=== PATIENT | male | born 1985 | race American Indian/Alaskan Native ===

== ENCOUNTER 2016-03-22 23:40 | Emergency (ER) | payer MEDICAID ==
[2016-03-23 02:36] LABS: Basophils % (Auto) 1.1 % (0.0-1.8); Eosinophils % (Auto) 2.7 % (0.0-4.3); Hematocrit 38.4 % (35.5-45.6); Mean Corpuscular HGB Conc 34 % (32-34); Mean Corpuscular Hemoglobin 31 pg (28-32); Mean Corpuscular Volume 91 fl (84-94); Platelet Count 229 K/mm3 (140-440); Red Blood Count 4.21 M/mm3 (3.65-5.03); Red Cell Distribution Width 15.2 % (13.2-15.2); White Blood Count 7.3 K/mm3 (4.5-11.0)
[2016-03-23 02:49] LABS: Anion Gap 17 mmol/L; BUN/Creatinine Ratio 11.11; Blood Urea Nitrogen 10 mg/dL (9-20); Calcium 8.5 mg/dL (8.4-10.2); Carbon Dioxide 27 mmol/L (22-30); Chloride 99.1 mmol/L (98-107); Glucose 92 mg/dL (75-100); Potassium 3.8 mmol/L (3.6-5.0); Sodium 139 mmol/L (137-145)
--- NOTE | 2016-03-23 03:08 | Emergency Department Report ---
HPI - General Chief Complaint: Psych Time Seen by Provider: 03/23/16 02:36 - HPI HPI: The patient is a 30-year-old male who presents for evaluation of mental health. The patient reports 1 day of constant and severe thoughts of sadness and suicidal ideation. He states that he is concerned that he will harm himself, as he has thought of stabbing himself with a knife. He also reports auditory hallucinations. The patient denies fever, headache, unexplained weight loss or weight gain, heat or cold intolerance, skin, hair, or nail changes, neuro deficits, homicidal ideations, or visual hallucinations. ED Past Medical Hx - Past Medical History Previous Medical History?: Yes Hx Hypertension: Yes Hx Psychiatric Treatment: Yes (anxiety, schizophrenia, bipolar) - Surgical History Past Surgical History?: No - Social History Smoking Status: Current Every Day Smoker Substance Use Type: Alcohol, Marijuana - Medications Home Medications: Home Medications Medication Instructions Recorded Confirmed Last Taken Type Divalproex Dr [Depakote] 500 mg PO BID 12/05/13 12/07/14 12/07/14 History Benztropine [Cogentin] 1 mg PO QHS 05/05/14 12/07/14 12/07/14 History risperiDONE [RisperDAL] 5 mg PO QHS 12/07/14 12/07/14 12/07/14 History ED Review of Systems ROS: Stated complaint: MH EVAL Other details as noted in HPI Constitutional: denies: fever ENT: denies: throat or neck pain Respiratory: denies: cough, shortness of breath Cardiovascular: denies: chest pain Endocrine: denies unexplained weight loss or gain Gastrointestinal: denies: abdominal pain, nausea Genitourinary: denies: dysuria Musculoskeletal: denies: leg swelling Skin: denies: rash Neurological: denies: headache Hematological/Lymphatic: denies: easy bleeding or easy bruising Psych: reports sadness and SI Physical Exam - Physical Exam Vital Signs: Vital Signs 03/23/16 03/23/16 01:25 02:35 Temperature 98.0 F 98.5 F Pulse Rate 114 H 80 Respiratory 18 151 H Rate Blood Pressure 119/86 Blood Pressure 127/75 [Right] O2 Sat by Pulse 98 99 Oximetry Physical Exam: General: well-nourished, well-developed, no acute distress Head: Normocephalic, atraumatic Eyes: normal sclera ENT: Mucous membranes are pale and dry Neck: trachea midline, neck supple, No neck stiffness, no cervical adenopathy Respiratory: Breath sounds equal bilaterally, no wheezing, rales, or rhonchi Cardio: S1 and S2 present, no murmurs, rubs, gallops, capillary refill is delayed Abdomen: Normoactive bowel sounds, soft abdomen, no rigidity, no guarding or rebound tenderness Musc: No pitting edema Skin: No rash Neuro: no facial drooping, normal speech Psych: Normal affect ED Course Vital Signs 03/23/16 03/23/16 01:25 02:35 Temperature 98.0 F 98.5 F Pulse Rate 114 H 80 Respiratory 18 151 H Rate Blood Pressure 119/86 Blood Pressure 127/75 [Right] O2 Sat by Pulse 98 99 Oximetry ED Medical Decision Making - Lab Data Result diagrams: 03/23/16 02:20 03/23/16 02:20 - Medical Decision Making The patient was seen and examined by myself. The patient is placed on a monitor and storage bin tender and continuous pulse ox. On initial evaluation, the patient was found to be in no distress. Labs are obtained. Lab results are grossly unremarkable. The patient is medically clear. Mental health is consulted. Mental health evaluates the patient and agrees that the patient is at risk of harm to self. A 1013 is completed. The patient will be admitted to a psychiatric facility once bed placement is obtained. Critical care attestation.: If time is entered above; I have spent that time in minutes in the direct care of this critically ill patient, excluding procedure time. ED Disposition Clinical Impression: Suicidal ideations Disposition: DC/TX PSY HOSP/PSY UNIT Is pt being admited?: No Does the pt Need Aspirin: No Condition: Stable Referrals: PRIMARY CARE, [Primary Care Provider] - 3-5 Days Time of Disposition: 03:08
[2016-03-23 07:20] LABS: Urine Drugs of Abuse Note Disclamer
[2016-03-23 07:26] LABS: Bilirubin,Urine NEG (Negative); Blood,Urine NEG (Negative); Ketones,Urine NEG (Negative); Leukocyte Esterase,Urine NEG (Negative); Nitrite,Urine NEG (Negative); Protein,Urine <15 mg/dL mg/dL (Negative); Urobilinogen,Urine < 2.0 mg/dL (<2.0)
--- NOTE | 2016-03-23 15:28 | Event Note ---
Date: 03/23/16 Vital signs and nursing notes reviewed. Patient awaiting placement.
[2016-03-25 20:16] VITALS: BP 106/61
== END 2016-03-25 21:45 ==
LOC: EEVIPCON 23:40 → ED 23:40
DX: R45.851 Suicidal ideations (principal); R44.0 Auditory hallucinations; I10 Essential (primary) hypertension; F20.9 Schizophrenia, unspecified; F41.9 Anxiety disorder, unspecified; F12.10 Cannabis abuse, uncomplicated; F17.200 Nicotine dependence, unspecified, uncomplicated; F31.9 Bipolar disorder, unspecified
CPT/HCPCS: 36415; 80048; 80307; 81001; 85025; 99285; G0480; 80320

== ENCOUNTER 2016-04-20 07:28 | Emergency (ER) | payer MEDICAID ==
[2016-04-20 08:13] LABS: Basophils % (Auto) 0.6 % (0.0-1.8); Eosinophils % (Auto) 2.7 % (0.0-4.3); Hemoglobin 13.1 gm/dl (11.8-15.2); Mean Corpuscular HGB Conc 34 % (32-34); Mean Corpuscular Hemoglobin 31 pg (28-32); Mean Corpuscular Volume 93 fl (84-94); Platelet Count 233 K/mm3 (140-440); Red Blood Count 4.21 M/mm3 (3.65-5.03); Red Cell Distribution Width 15.6 % (13.2-15.2); White Blood Count 6.2 K/mm3 (4.5-11.0)
[2016-04-20 08:23] LABS: Urine Drugs of Abuse Note Disclamer
[2016-04-20 08:32] LABS: Anion Gap 16 mmol/L; Blood Urea Nitrogen 4 mg/dL (9-20); Calcium 8.6 mg/dL (8.4-10.2); Carbon Dioxide 27 mmol/L (22-30); Glucose 88 mg/dL (75-100); Potassium 3.7 mmol/L (3.6-5.0); Sodium 138 mmol/L (137-145)
[2016-04-20 08:41] LABS: Bilirubin,Urine NEG (Negative); Blood,Urine NEG (Negative); Ketones,Urine NEG (Negative); Leukocyte Esterase,Urine NEG (Negative); Mucus,Urine FEW /HPF; Nitrite,Urine NEG (Negative); Protein,Urine <15 mg/dL mg/dL (Negative); WBC,Urine < 1.0 /HPF (0.0-6.0)
--- NOTE | 2016-04-20 16:29 | Emergency Department Report ---
HPI - General Chief Complaint: Psych Time Seen by Provider: 04/20/16 09:06 - HPI HPI: Chief complaint: Suicidal thoughts and hearing voices HPI: Patient with a history of bipolar disorder and schizoaffective disorder presents today saying he is having suicidal thoughts and is hearing voices. Patient also complains of having some abdominal crampy pain with 4 episodes of diarrhea earlier that has since stopped. Patient states he has trouble with constipation because someone is blocking his bowels. Patient states that he did not take his medications yesterday as someone has been tampering with them. She would not elaborate further. Mode of arrival: private car Source: Patient Began: Patient unable to say how long he's been having these feelings Duration: Long-standing history of psychiatric illness Context: See above Quality: Currently pain-free Severity: 0 out of 10 Improved with: Nothing Worsened with: Nothing Associated signs and symptoms: See above ED Past Medical Hx - Past Medical History Hx Hypertension: Yes Hx Psychiatric Treatment: Yes (anxiety, schizophrenia, bipolar) - Surgical History Past Surgical History?: No - Social History Smoking Status: Current Every Day Smoker Substance Use Type: Alcohol - Medications Home Medications: Home Medications Medication Instructions Recorded Confirmed Last Taken Type Divalproex Dr [Depakote] 500 mg PO BID 12/05/13 03/23/16 12/07/14 History Benztropine [Cogentin] 1 mg PO QHS 05/05/14 03/23/16 12/07/14 History risperiDONE [RisperDAL] 5 mg PO QHS 12/07/14 03/23/16 12/07/14 History Haloperidol [Haldol] 5 mg PO HS 04/20/16 04/20/16 04/19/16 History ED Review of Systems ROS: Stated complaint: MH EVAL Other details as noted in HPI ROS Constitutional: No fever ENT: No uri symptoms Cardiovascular: No chest pain Respiratory: No sob or cough GI: No nausea vomiting : No dysuria frequency or urgency, Skin: No rash Neuro: No focal weakness or numbness Psych: He HPI Gustabo/lymph: No edema Physical Exam - Physical Exam Vital Signs: Vital Signs 04/20/16 04/20/16 07:33 08:22 Temperature 98.1 F Pulse Rate 95 H Respiratory 18 20 Rate Blood Pressure 117/75 O2 Sat by Pulse 99 98 Oximetry Physical Exam: GENERAL: The patient is well-developed well-nourished . HEENT: Normocephalic. Atraumatic. Extraocular motions are intact. Patient has moist mucous membranes. NECK: Supple. No meningitic signs are noted. There is no adenopathy noted. CHEST/LUNGS: Clear to auscultation. There is no respiratory distress noted. HEART/CARDIOVASCULAR: Regular. There is no tachycardia. There is no gallop rub or murmur. ABDOMEN: Abdomen is soft, nontender. Patient has normal bowel sounds. There is no abdominal distention. SKIN: There is no rash. There is no edema. There is no diaphoresis. NEURO: The patient is awake, alert, and oriented. Patient is slightly paranoid. The patient is cooperative. The patient has no focal neurologic deficits. The patient has normal speech. MUSCULOSKELETAL: There is no tenderness or deformity. There is no limitation range of motion. There is no evidence of acute injury. ED Course Vital Signs 04/20/16 04/20/16 07:33 08:22 Temperature 98.1 F Pulse Rate 95 H Respiratory 18 20 Rate Blood Pressure 117/75 O2 Sat by Pulse 99 98 Oximetry - Reevaluation(s) Reevaluation #1: 04/20/16 Patient evaluated by mental health crisis and 1013 was executed. ED Medical Decision Making - Lab Data Result diagrams: 04/20/16 07:58 04/20/16 07:58 Laboratory Tests 04/20/16 04/20/16 07:58 07:58 Valproic Acid 9.1 L Plasma/Serum Alcohol < 0.01 Urinalysis and urine drug screen are negative. Critical care attestation.: If time is entered above; I have spent that time in minutes in the direct care of this critically ill patient, excluding procedure time. ED Disposition Clinical Impression: Suicidal ideations Disposition: DC/TX PSY HOSP/PSY UNIT Is pt being admited?: No Does the pt Need Aspirin: No Condition: Stable Time of Disposition: 10:00
[2016-04-21 10:09] VITALS: BP 116/68
--- NOTE | 2016-04-21 17:19 | Consultation ---
History of Present Illness - Reason for Consult Consult date: 04/21/16 Reason for consult: evaluation for placement into emergency receiving facility - Chief Complaint Chief complaint: I thought they were messing with my medications - History of Present Psychiatric Illness This is a 30 year old domiciled male with PPH of Schizophrenia who presents due to either a persistent psychosis or a reemergence of psychosis over the past few days. Psychiatry was consulted to evaluate and to help facilitate placement of this patient. Upon interview, he corroborated the history noted in the remainder of the chart and that of the Mental Health assessors. Notably, that he was having thoughts of suicide and that he woke up not feeling well. He has been inconsistently adherent to his medications due to a paranoid belief that someone is tampering with the medication. Medications and Allergies Allergies Allergy/AdvReac Type Severity Reaction Status Date / Time quetiapine fumarate Allergy Unknown Verified 04/20/16 07:33 [From Seroquel] Home Medications Medication Instructions Recorded Confirmed Last Taken Type Divalproex Dr [Depakote] 500 mg PO BID 12/05/13 04/20/16 04/19/16 History Benztropine [Cogentin] 1 mg PO QHS 05/05/14 04/20/16 04/19/16 History risperiDONE [RisperDAL] 5 mg PO QHS 12/07/14 04/20/16 04/19/16 History Haloperidol [Haldol] 5 mg PO HS 04/20/16 04/20/16 04/19/16 History Mental Status Exam - Vital signs Last Vital Signs Temp 98.3 F 04/21/16 10:00 Pulse 70 04/21/16 10:00 Resp 18 04/21/16 10:00 BP 116/68 04/21/16 10:00 Pulse Ox 99 04/21/16 10:00 - Exam Orientation: person Affect: depressed, anxious Mood: fearful, anxious Thought content: obsessions, phobias, paranoia, somatic Thought Process: Disorganized Perceptions: auditory Speech: slow Concentration: distractible Motor activity: lethargic Level of consciousness: sedated Memory: Recent Impaired, Remote Impaired Sleep Symptoms: None Interaction: guarded Results Result Diagrams: 04/20/16 07:58 04/20/16 07:58 All other labs normal. Assessment and Plan Assessment and plan: This is a 30 year old domiciled male with schizophrenia who presents with worsening psychosis in the context of intermittent medication non-adherence associated to paranoia. We recommend transferring him to [facility], where he has been accepted by their emergency receiving psychiatric facility.
== END 2016-04-21 15:54 ==
LOC: ED 07:28 → EEVIPCON 07:28 → ED 04-21 15:54
DX: R45.851 Suicidal ideations (principal); I10 Essential (primary) hypertension; F31.9 Bipolar disorder, unspecified; F20.9 Schizophrenia, unspecified; F41.9 Anxiety disorder, unspecified; F17.200 Nicotine dependence, unspecified, uncomplicated
CPT/HCPCS: 36415; 80048; 80164; 80307; 81001; 85025; 99285; G0480; 80320

== ENCOUNTER 2016-06-09 23:48 | Emergency (ER) | payer MEDICAID ==
[2016-06-10 03:09] LABS: Anion Gap 20 mmol/L; BUN/Creatinine Ratio 6.66; Blood Urea Nitrogen 6 mg/dL (9-20); Calcium 9.5 mg/dL (8.4-10.2); Carbon Dioxide 25 mmol/L (22-30); Chloride 98.5 mmol/L (98-107); Glucose 78 mg/dL (75-100); Potassium 4.5 mmol/L (3.6-5.0); Sodium 139 mmol/L (137-145)
[2016-06-10 03:20] LABS: Basophils % (Auto) 0.6 % (0.0-1.8); Eosinophils % (Auto) 2.6 % (0.0-4.3); Hematocrit 41.1 % (35.5-45.6); Hemoglobin 14.3 gm/dl (11.8-15.2); Mean Corpuscular HGB Conc 35 % (32-34); Mean Corpuscular Hemoglobin 32 pg (28-32); Mean Corpuscular Volume 93 fl (84-94); Platelet Count 228 K/mm3 (140-440); Red Blood Count 4.43 M/mm3 (3.65-5.03); Red Cell Distribution Width 14.3 % (13.2-15.2); White Blood Count 7.8 K/mm3 (4.5-11.0)
[2016-06-10 03:32] LABS: Urine Drugs of Abuse Note Disclamer
[2016-06-10 03:51] LABS: Bilirubin,Urine NEG (Negative); Blood,Urine NEG (Negative); Ketones,Urine NEG (Negative); Leukocyte Esterase,Urine SM (Negative); Mucus,Urine FEW /HPF; Nitrite,Urine NEG (Negative); Protein,Urine <15 mg/dL mg/dL (Negative); Urobilinogen,Urine < 2.0 mg/dL (<2.0)
[2016-06-10] MEDS ORDERED: HABITROL TD ONE (03:53)
--- NOTE | 2016-06-10 03:53 | Emergency Department Report ---
ED Psych HPI - General Chief Complaint: Psych Stated Complaint: MH EVAL/RT FOOT PAIN Time Seen by Provider: 06/10/16 03:23 Source: patient Mode of arrival: Ambulatory - History of Present Illness Initial Comments: Danny is a pleasant young man who lives in a fci. He states he has difficulties in the fci of getting sleep due to all the activity going on. He states he is, constantly hearing voices in his head telling him to do all sorts of things as well. He finds a voices distracting and difficult to concentrate and sleep as well. He feels frequently that the voices are telling him to do harm to himself. He does not have any homicidal ideations. He does not have a specific suicidal plan but has had thoughts of suicide. Patient states he feels that he needs inpatient psychiatric therapy. He denies any drugs of abuse. He denies illicit. He states he is compliant with his medications. He does have a psychiatrist here in town when she follows up with routinely. He states his last appointment was 2 weeks ago. Patient reports feeling comfortable with this psychiatrist. He states in general he is comfortable with his fci but that he just feels he needs a break so that he can get better sleep and get his "head on straight." Patient also complains of tinea pedis times long time that is gone untreated. It is itchy. It sometimes causes his feet to burn Associated Psychiatric Symptoms: depression, suicidal ideation History of same: Yes Treatments Prior to Arrival: none - Related Data Home Medications Medication Instructions Recorded Confirmed Last Taken Divalproex Dr [Depakote] 500 mg PO BID 12/05/13 04/20/16 04/19/16 Benztropine [Cogentin] 1 mg PO QHS 05/05/14 04/20/16 04/19/16 risperiDONE [RisperDAL] 5 mg PO QHS 12/07/14 04/20/16 04/19/16 Haloperidol [Haldol] 5 mg PO HS 04/20/16 04/20/16 04/19/16 Allergies Allergy/AdvReac Type Severity Reaction Status Date / Time quetiapine fumarate Allergy Unknown Verified 04/20/16 07:33 [From Seroquel] ED Review of Systems ROS: Stated complaint: MH EVAL/RT FOOT PAIN Other details as noted in HPI Comment: All other systems reviewed and negative Constitutional: denies: chills, fever Eyes: denies: eye pain, eye discharge, vision change ENT: denies: ear pain, throat pain Respiratory: denies: cough, shortness of breath, wheezing Cardiovascular: denies: chest pain, palpitations Endocrine: no symptoms reported Gastrointestinal: denies: abdominal pain, nausea, diarrhea Genitourinary: denies: urgency, dysuria Musculoskeletal: denies: back pain, joint swelling, arthralgia Skin: other (skin lesions right foot.). denies: rash, lesions Neurological: denies: headache, weakness, paresthesias Psychiatric: anxiety, depression, suicidal thoughts Hematological/Lymphatic: denies: easy bleeding, easy bruising ED Past Medical Hx - Past Medical History Previous Medical History?: Yes Hx Hypertension: Yes Hx Psychiatric Treatment: Yes (anxiety, schizophrenia, bipolar) - Surgical History Past Surgical History?: Yes - Social History Smoking Status: Current Every Day Smoker Substance Use Type: Alcohol - Medications Home Medications: Home Medications Medication Instructions Recorded Confirmed Last Taken Type Divalproex Dr [Depakote] 500 mg PO BID 12/05/13 04/20/16 04/19/16 History Benztropine [Cogentin] 1 mg PO QHS 05/05/14 04/20/16 04/19/16 History risperiDONE [RisperDAL] 5 mg PO QHS 12/07/14 04/20/16 04/19/16 History Haloperidol [Haldol] 5 mg PO HS 04/20/16 04/20/16 04/19/16 History ED Physical Exam - General Limitations: No Limitations General appearance: alert, in no apparent distress - Head Head exam: Present: atraumatic, normocephalic - Eye Eye exam: Present: normal appearance, EOMI. Absent: scleral icterus - ENT ENT exam: Present: normal exam, normal orophraynx, mucous membranes moist - Neck Neck exam: Present: normal inspection. Absent: tenderness, meningismus, lymphadenopathy - Respiratory Respiratory exam: Present: normal lung sounds bilaterally. Absent: respiratory distress, wheezes, rales - Cardiovascular Cardiovascular Exam: Present: regular rate, normal rhythm. Absent: systolic murmur, diastolic murmur, rubs, gallop - GI/Abdominal GI/Abdominal exam: Present: soft, normal bowel sounds. Absent: tenderness, guarding - Rectal Rectal exam: Present: deferred - Extremities Exam Extremities exam: Present: other (right foot increases and on the ball of foot with chronic skin changes consistent with tinea pedis.). Absent: pedal edema, joint swelling, calf tenderness - Back Exam Back exam: Present: normal inspection, full ROM. Absent: tenderness, CVA tenderness (R), CVA tenderness (L) - Neurological Exam Neurological exam: Present: alert, oriented X3 - Psychiatric Psychiatric exam: Present: normal affect, normal mood, suicidal ideation - Skin Skin exam: Present: warm, dry, intact, normal color. Absent: rash ED Course Vital Signs 06/10/16 06/10/16 02:09 02:24 Temperature 98.1 F 98.1 F Pulse Rate 74 75 Respiratory 18 18 Rate Blood Pressure 118/81 Blood Pressure 118/61 [Right] O2 Sat by Pulse 100 100 Oximetry - Reevaluation(s) Reevaluation #1: 06/10/16 05:23 Patient very pleasant and calm here. He is speaking in normal rate and tone. He does endorse suicidal thoughts. He states that there is some more of a flight of ideas. He states he is voices that she talk to him. He reports the voices are sometimes helpful and sometimes mean. Again his main concern is in his opinion is that he is just not getting enough sleep to deal with his problems well. He strongly expresses a desire to be in inpatient psychiatry. To some degree I feel like he is borderline for needing inpatient care. He does legitimately endorse some suicidal thoughts spell. He states he has never acted out on the suicidal gesture in the past. He states he's always been compliant with his medications. These are reasons why I feel these low risk in general. Despite this for now I will have him on 1013 for further evaluation by crisis maintenance representative as well as psychiatry. Intake labs have been evaluated and are normal. Patient is medically clear from my standpoint. Of secondary note patient does demonstrate tinea pedis. This is gone untreated for several years it appears. I did encourage him to get this finally treated. It'll require about 8-12 weeks of continuous treatment with some type of antifungal medication. ED Medical Decision Making - Lab Data Result diagrams: 06/10/16 02:36 06/10/16 02:36 Critical care attestation.: If time is entered above; I have spent that time in minutes in the direct care of this critically ill patient, excluding procedure time. ED Disposition Clinical Impression: Suicidal ideations, Tinea pedis of right foot Depression Qualifiers: Depression Type: major depressive disorder Major depression recurrence: recurrent Active/Remission status: currently active Major depression episode severity: moderate Qualified Code(s): F33.1 - Major depressive disorder, recurrent, moderate Disposition: DC/TX PSY HOSP/PSY UNIT Is pt being admited?: No Does the pt Need Aspirin: No Condition: Stable Referrals: PRIMARY CARE, [Primary Care Provider] - 3-5 Days Time of Disposition: 05:25
--- NOTE | 2016-06-10 11:31 | Consultation ---
History of Present Illness - Reason for Consult Consult date: 06/10/16 Reason for consult: Psychiatry Follow-up Requesting physician: MARIANA LINDSAY - Chief Complaint Chief complaint: "I just need some help" - History of Present Psychiatric Illness 31 y.o. AA male admitted to [facility] for psychosis. Today patient is calm, cooperative with a linear thought process. Patient acknowledged calling the police to pick him up from the group, because he wasn't "feeling right." He told me that he is having issues at his current long-term and experiencing AVH' s intermittently. He could not tell me what the visual hallucination is currently, but states the voices tell him to do all sorts of "crazy" things. I asked did the voices tell him to harm himself or anyone else, he states "yes" to harming himself, "no" to harming anyone else. He could not tell me if he had a suicide plan. He stated that he was hospitalized for hearing voices with suicidal thoughts in the past. He denies having issues with a group of residents or a particular person at the long-term. He states that it's a lot of on going activity there and getting rest and sleep is a problem. He denies using recreational drugs, but drink seldom. He feels sad and hopeless and rate his depression 7/10, with 10 being the worst. He states that he is compliant with his medications. He denies HI's at this time. Medications and Allergies Allergies Allergy/AdvReac Type Severity Reaction Status Date / Time quetiapine fumarate Allergy Unknown Verified 04/20/16 07:33 [From Seroquel] Home Medications Medication Instructions Recorded Confirmed Last Taken Type Divalproex Dr [Depakote] 500 mg PO BID 12/05/13 06/10/16 06/08/16 History Benztropine [Cogentin] 1 mg PO QHS 05/05/14 06/10/16 06/08/16 History risperiDONE [RisperDAL] 5 mg PO QHS 12/07/14 06/10/16 06/08/16 History Haloperidol [Haldol] 5 mg PO HS 04/20/16 06/10/16 06/08/16 History Active Meds: Active Medications Benztropine Mesylate (Cogentin) 1 mg PO QHS ALDO Divalproex Sodium (Depakote Dr) 500 mg PO BID [facility] Last Admin: 06/10/16 09:56 Dose: 500 mg Haloperidol (Haldol) 5 mg PO HS ALDO Risperidone (Risperdal) 3 mg PO QHS ALDO Risperidone (Risperdal) 2 mg PO QHS ALDO Past psychiatric history - Past Medical History Past Medical History: No medical history Past Surgical History: No surgical history - past Psychiatric treatment and history Psych: Bipolar, Schizophrenia psychiatric treatment history: Per patient been to [facility]. Denies fam psy hx. - Social History Social history: other (Lives at a long-term, did not finish , ) Mental Status Exam - Vital signs Last Vital Signs Temp 97.8 F 06/10/16 07:40 Pulse 70 06/10/16 07:40 Resp 20 06/10/16 07:40 BP 101/66 06/10/16 07:40 Pulse Ox 99 06/10/16 07:40 - Exam Narrative exam: ROS (-) Suicidal Thoughts, (+) Depression Orientation: time, place, person Affect: flat Mood: congruent with affect Thought content: other (None) Thought Process: Intact Perceptions: none Speech: normal rate and pattern Concentration: other (Intact) Motor activity: other (Lying in bed) Level of consciousness: alert Memory: Intact Sleep Symptoms: None Interaction: cooperative, pleasant Results Result Diagrams: 06/10/16 02:36 06/10/16 02:36 Abnormal lab results 06/10/16 06/10/16 06/10/16 Range/Units 02:36 02:36 04:10 MCHC 35 H (32-34) % [place] % (Auto) 8.5 H (0.0-7.3) % BUN 6 L (9-20) mg/dL Valproic Acid 13.8 L (50-100) ug/mL All other labs normal. Assessment and Plan Assessment and plan: Impression: Psychosis NOS. 31 y.o. AA male admitted to [facility] for psychosis. Today patient is calm, cooperative with a linear thought process. Patient acknowledged calling the police to pick him up from the group, because he wasn' t "feeling right." He admit suicidal thoughts and AVH's intermittently. He stated that he is compliant with his medication, but have not taken his depakote regularly. VA level 13.8. DD: R/O Bipolar Recommendation/Plan: Continue 1013 with possible placement to inpatient psy services. Metabolic side effects discussed with patient reference antipsychotics.
[2016-06-10 14:47] VITALS: BP 108/66
[2016-06-10] MEDS ORDERED: RisperDAL PO SCH ×3 (22:00)
[2016-06-10] MEDS ORDERED: HALDOL PO SCH (22:00)
[2016-06-10] MEDS ORDERED: COGENTIN PO SCH (22:00)
== END 2016-06-10 14:56 ==
LOC: EEVIPCON 23:48 → ED 23:48
DX: R45.851 Suicidal ideations (principal); F33.1 Major depressive disorder, recurrent, moderate; B35.3 Tinea pedis; I10 Essential (primary) hypertension; F31.9 Bipolar disorder, unspecified; F20.9 Schizophrenia, unspecified; F41.9 Anxiety disorder, unspecified; F17.200 Nicotine dependence, unspecified, uncomplicated; Z88.8 Allergy status to other drugs, medicaments and biological substances
CPT/HCPCS: 36415; 80048; 80164; 80307; 81001; 85025; 99285; G0480; 80320

== ENCOUNTER 2016-06-22 00:32 | Emergency (ER) | payer MEDICAID ==
[2016-06-22] MEDS ORDERED: ATIVAN IM PRN (01:15)
[2016-06-22 01:18] LABS: Basophils % (Auto) 0.7 % (0.0-1.8); Eosinophils % (Auto) 1.2 % (0.0-4.3); Hematocrit 42.6 % (35.5-45.6); Hemoglobin 14.6 gm/dl (11.8-15.2); Mean Corpuscular HGB Conc 34 % (32-34); Mean Corpuscular Hemoglobin 32 pg (28-32); Mean Corpuscular Volume 92 fl (84-94); Platelet Count 197 K/mm3 (140-440); Red Blood Count 4.61 M/mm3 (3.65-5.03); Red Cell Distribution Width 13.8 % (13.2-15.2)
[2016-06-22 01:42] LABS: Anion Gap 19 mmol/L; Blood Urea Nitrogen 9 mg/dL (9-20); Calcium 9.1 mg/dL (8.4-10.2); Carbon Dioxide 26 mmol/L (22-30); Chloride 100.3 mmol/L (98-107); Glucose 92 mg/dL (75-100); Potassium 3.9 mmol/L (3.6-5.0); Sodium 141 mmol/L (137-145)
--- NOTE | 2016-06-22 02:38 | Emergency Department Report ---
ED Psych HPI - General Chief Complaint: Psych Stated Complaint: HOMICIDAL/SUICIDAL Time Seen by Provider: 06/22/16 00:58 Source: patient, police Mode of arrival: Ambulatory Limitations: No Limitations - History of Present Illness Initial Comments: This is a 25-year-old male. He has a history of psychosis. He presents to the ER complaining of suicidality or hallucinations. He does not of access to guns or firearms. He denies toxic ingestions. He denies headache, neck pain, chest pain, abdominal pain or shortness of breath. He denies testicular pain. He denies irritative obstructive urinary symptoms. He cannot describe exacerbating or relieving factors. MD Complaint: suicidal ideation -: Gradual Associated Psychiatric Symptoms: suicidal ideation History of same: Yes Quality: intermittent Improves With: none Worsens With: none Associated Symptoms: denies: confusion, headache, shortness of breath, nausea, vomiting, syncope, insomnia If Self Harm: admits thoughts of - Related Data Home Medications Medication Instructions Recorded Confirmed Last Taken Divalproex Dr [Depakote] 500 mg PO BID 12/05/13 06/22/16 06/08/16 Benztropine [Cogentin] 1 mg PO QHS 05/05/14 06/22/16 06/08/16 risperiDONE [RisperDAL] 5 mg PO QHS 12/07/14 06/22/16 06/08/16 Haloperidol [Haldol] 5 mg PO HS 04/20/16 06/22/16 06/08/16 Allergies Allergy/AdvReac Type Severity Reaction Status Date / Time quetiapine fumarate Allergy Unknown Verified 04/20/16 07:33 [From Seroquel] ED Review of Systems ROS: Stated complaint: HOMICIDAL/SUICIDAL Other details as noted in HPI Constitutional: denies: fever Eyes: denies: vision change ENT: denies: epistaxis Respiratory: denies: cough Cardiovascular: denies: chest pain Gastrointestinal: denies: abdominal pain, nausea, diarrhea Genitourinary: denies: urgency, dysuria Musculoskeletal: back pain. denies: joint swelling, arthralgia Skin: lesions. denies: rash Neurological: denies: headache, weakness, paresthesias Psychiatric: denies: homicidal thoughts, suicidal thoughts ED Past Medical Hx - Past Medical History Previous Medical History?: Yes Hx Hypertension: Yes Hx Psychiatric Treatment: Yes (anxiety, schizophrenia, bipolar) - Surgical History Past Surgical History?: No - Social History Smoking Status: Never Smoker Substance Use Type: None - Medications Home Medications: Home Medications Medication Instructions Recorded Confirmed Last Taken Type Divalproex Dr [Depakote] 500 mg PO BID 12/05/13 06/22/16 06/08/16 History Benztropine [Cogentin] 1 mg PO QHS 05/05/14 06/22/16 06/08/16 History risperiDONE [RisperDAL] 5 mg PO QHS 12/07/14 06/22/16 06/08/16 History Haloperidol [Haldol] 5 mg PO HS 04/20/16 06/22/16 06/08/16 History ED Physical Exam - General Limitations: No Limitations General appearance: alert, in no apparent distress - Head Head exam: Present: atraumatic, normocephalic - Eye Eye exam: Present: normal appearance, EOMI. Absent: nystagmus - ENT ENT exam: Present: normal exam, normal orophraynx, mucous membranes moist, normal external ear exam - Neck Neck exam: Present: normal inspection, full ROM. Absent: tenderness, meningismus - Respiratory Respiratory exam: Present: normal lung sounds bilaterally. Absent: respiratory distress, wheezes, rales, rhonchi, stridor, chest wall tenderness - Cardiovascular Cardiovascular Exam: Present: regular rate, normal rhythm, normal heart sounds. Absent: bradycardia, tachycardia, irregular rhythm, systolic murmur, diastolic murmur, rubs, gallop - GI/Abdominal GI/Abdominal exam: Present: soft, normal bowel sounds. Absent: distended, tenderness, guarding, rebound, rigid, pulsatile mass - Rectal Rectal exam: Present: deferred - Extremities Exam Extremities exam: Present: normal inspection, full ROM, normal capillary refill. Absent: pedal edema, joint swelling, calf tenderness - Back Exam Back exam: Present: normal inspection, other (left paralumbar region, there is a small area of induration, with minimal drainage. There is no large area of streaking.). Absent: CVA tenderness (L), muscle spasm, paraspinal tenderness, vertebral tenderness - Neurological Exam Neurological exam: Present: alert, oriented X3, normal gait, other (Extraocular movements intact. Tongue midline. No facial droop. Facial sensation intact to light touch in the V1, V2, V3 distribution bilaterally. 5 and 5 strength in 4 extremities.. Sensation is intact to light touch in 4 extremities.). Absent : motor sensory deficit - Psychiatric Psychiatric exam: Present: suicidal ideation. Absent: homicidal ideation - Skin Skin exam: Present: warm, dry, intact, normal color. Absent: rash ED Course Vital Signs 06/22/16 01:15 Temperature 99.3 F Pulse Rate 93 H Respiratory 18 Rate Blood Pressure 109/78 Blood Pressure 109/78 [Right] O2 Sat by Pulse 99 Oximetry - Reevaluation(s) Reevaluation #1: 06/22/16 04:31 Differential diagnosis: Medical clearance for psychiatric placement, psychiatric to compensation, suicidality, skin pustule Assessment and plan: 31-year-old male with suicidality. Walks with a steady gait. Has a GCS of 15, with an NIH score of 0. Clinically sober. No indication of trauma. A 1013 form is filled out by me. Has a small area of left paralumbar pustule that is draining, possible component of cellulitis. He'll be started on doxycycline for this. His medications haven't reconciled. Urinalysis is pending. At this point in time, it does not appear that there is any immediate medical complications to psychiatric admission/evaluation. 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 ED Medical Decision Making - Lab Data Result diagrams: 06/22/16 01:01 06/22/16 01:01 Vital Signs 06/22/16 01:15 Temperature 99.3 F Pulse Rate 93 H Respiratory 18 Rate Blood Pressure 109/78 Blood Pressure 109/78 [Right] O2 Sat by Pulse 99 Oximetry Lab Results 06/22/16 06/22/16 06/22/16 Range/Units 01:01 01:01 01:01 WBC 10.0 (4.5-11.0) K/mm3 RBC 4.61 (3.65-5.03) M/mm3 Hgb 14.6 (11.8-15.2) gm/dl Hct 42.6 (35.5-45.6) % MCV 92 (84-94) fl MCH 32 (28-32) pg MCHC 34 (32-34) % RDW 13.8 (13.2-15.2) % Plt Count 197 (140-440) K/mm3 Lymph % (Auto) 20.0 (13.4-35.0) % [place] % (Auto) 8.7 H (0.0-7.3) % Eos % (Auto) 1.2 (0.0-4.3) % Baso % (Auto) 0.7 (0.0-1.8) % Lymph # 2.0 (1.2-5.4) K/mm3 [place] # 0.9 H (0.0-0.8) K/mm3 Eos # 0.1 (0.0-0.4) K/mm3 Baso # 0.1 (0.0-0.1) K/mm3 Seg Neutrophils % 69.4 (40.0-70.0) % Seg Neutrophils # 7.0 (1.8-7.7) K/mm3 Sodium 141 (137-145) mmol/L Potassium 3.9 (3.6-5.0) mmol/L Chloride 100.3 (98-107) mmol/L Carbon Dioxide 26 (22-30) mmol/L Anion Gap 19 mmol/L BUN 9 (9-20) mg/dL Creatinine 1.0 (0.8-1.5) mg/dL Estimated GFR > 60 ml/min BUN/Creatinine Ratio 9.00 % Glucose 92 (75-100) mg/dL Calcium 9.1 (8.4-10.2) mg/dL Total Creatine Kinase (55-170) units/L Salicylates (2.8-20.0) mg/dL Acetaminophen (10.0-30.0) ug/mL Plasma/Serum Alcohol < 0.01 (0-0.07) gm% 06/22/16 06/22/16 06/22/16 Range/Units Unknown Unknown Unknown WBC (4.5-11.0) K/mm3 RBC (3.65-5.03) M/mm3 Hgb (11.8-15.2) gm/dl Hct (35.5-45.6) % MCV (84-94) fl MCH (28-32) pg MCHC (32-34) % RDW (13.2-15.2) % Plt Count (140-440) K/mm3 Lymph % (Auto) (13.4-35.0) % [place] % (Auto) (0.0-7.3) % Eos % (Auto) (0.0-4.3) % Baso % (Auto) (0.0-1.8) % Lymph # (1.2-5.4) K/mm3 [place] # (0.0-0.8) K/mm3 Eos # (0.0-0.4) K/mm3 Baso # (0.0-0.1) K/mm3 Seg Neutrophils % (40.0-70.0) % Seg Neutrophils # (1.8-7.7) K/mm3 Sodium (137-145) mmol/L Potassium (3.6-5.0) mmol/L Chloride (98-107) mmol/L Carbon Dioxide (22-30) mmol/L Anion Gap mmol/L BUN (9-20) mg/dL Creatinine (0.8-1.5) mg/dL Estimated GFR ml/min BUN/Creatinine Ratio % Glucose (75-100) mg/dL Calcium (8.4-10.2) mg/dL Total Creatine Kinase 279 H (55-170) units/L Salicylates < 0.3 L (2.8-20.0) mg/dL Acetaminophen < 15.0 (10.0-30.0) ug/mL Plasma/Serum Alcohol (0-0.07) gm% Critical care attestation.: If time is entered above; I have spent that time in minutes in the direct care of this critically ill patient, excluding procedure time. ED Disposition Clinical Impression: Suicidal ideations, Depression Disposition: DC/TX PSY HOSP/PSY UNIT Is pt being admited?: No Does the pt Need Aspirin: No Condition: Good Referrals: PRIMARY CARE, [Primary Care Provider] - 3-5 Days
[2016-06-22] MEDS: VIBRAMYCIN PO SCH ×3 (04:00→22:18)
[2016-06-22 04:42] LABS: Urine Drugs of Abuse Note Disclamer
[2016-06-22 05:18] LABS: Bilirubin,Urine NEG (Negative); Blood,Urine NEG (Negative); Ketones,Urine NEG (Negative); Leukocyte Esterase,Urine NEG (Negative); Mucus,Urine FEW /HPF; Nitrite,Urine NEG (Negative); Protein,Urine <15 mg/dL mg/dL (Negative)
[2016-06-22] MEDS: HALDOL PO SCH (22:18)
[2016-06-22] MEDS: RisperDAL PO SCH ×2 (22:18)
[2016-06-22] MEDS: COGENTIN PO SCH (22:18)
[2016-06-23] MEDS: VIBRAMYCIN PO SCH ×2 (10:04→21:41)
--- NOTE | 2016-06-23 12:18 | Consultation ---
History of Present Illness - Reason for Consult Consult date: 06/23/16 Reason for consult: Mental Health Evaluation Requesting physician: DWAYNE STEELE - Chief Complaint Chief complaint: "I wasn't feeling right" - History of Present Psychiatric Illness This is a 31-year-old AA male. He presents to the ER complaining of suicidality or hallucinations. Today patient is calm and cooperative with a circumstantial thought process. He admits that he felt "weird and strange" on admission. He could not tell me if he was suicidal that day. Patient had previous admission ( [facility] 06/09/16) and than transferred to [facility] for psychosis. He stated that he was there for 5 days before being discharged. I asked the patient to compare how he feel mentally (on admission and today). He stated that he feel a lot better today. He could not remember if he was compliant with his psy medications once he was discharged from [facility]. His current VA level is 11.6. He denies SI/HI's and AVH's at this time. He denies depression, sleep issues or a poor appetite. He states that he is a social drinker. Patient would like to return to [place]. Medications and Allergies Allergies Allergy/AdvReac Type Severity Reaction Status Date / Time quetiapine fumarate Allergy Unknown Verified 04/20/16 07:33 [From Seroquel] Home Medications Medication Instructions Recorded Confirmed Last Taken Type Divalproex Dr [Depakote] 500 mg PO BID 12/05/13 06/22/16 06/08/16 History Benztropine [Cogentin] 1 mg PO QHS 05/05/14 06/22/16 06/08/16 History risperiDONE [RisperDAL] 5 mg PO QHS 12/07/14 06/22/16 06/08/16 History Haloperidol [Haldol] 5 mg PO 04/20/16 06/22/16 06/08/16 History Active Meds: Active Medications Benztropine Mesylate (Cogentin) 1 mg PO QHS [facility] Last Admin: 06/22/16 22:18 Dose: 1 mg Divalproex Sodium (Depakote Dr) 500 mg PO BID [facility] Last Admin: 06/23/16 10:04 Dose: 500 mg Doxycycline Hyclate (Vibramycin) 100 mg PO BID [facility] Stop: 06/26/16 10:01 Last Admin: 06/23/16 10:04 Dose: 100 mg Haloperidol (Haldol) 5 mg PO [facility] Last Admin: 06/22/16 22:18 Dose: 5 mg Lorazepam (Ativan) 2 mg IM Q4HR PRN PRN Reason: Agitation Risperidone (Risperdal) 3 mg PO QHS [facility] Last Admin: 06/22/16 22:18 Dose: 3 mg Risperidone (Risperdal) 2 mg PO QHS [facility] Last Admin: 06/22/16 22:18 Dose: 2 mg Past psychiatric history - Past Medical History Past Medical History: No medical history, other Past Surgical History: No surgical history - past Psychiatric treatment and history Psych: Bipolar, Depression, Schizophrenia psychiatric treatment history: multiple Psy facilities in the [facility] area. Denies fam hx pf psy. - Social History Social history: Lives alone (Did not finish , Live at [facility] [facility]), other Mental Status Exam - Vital signs Last Vital Signs Temp 98.8 F 06/22/16 21:41 Pulse 82 06/22/16 21:41 Resp 20 06/23/16 06:12 BP 100/65 06/22/16 21:41 Pulse Ox 100 06/23/16 06:12 - Exam Narrative exam: ROS (-) psychosis, (-) depression MSE: Appearance: calm, cooperative Behavior: poor eye contact Speech: regular rate and tone Mood: "Not depressed" Affect: flat Thought Process: circumstantial Thought Content: denies SI/HI's and AVH's Motor Activity: ambulatory Cognition: A/Ox3 Insight: poor Judgment: fair Results Result Diagrams: 06/22/16 01:01 06/22/16 01:01 All other labs normal. Assessment and Plan Assessment and plan: Impression: Unspecified Mood DO. This is a 31-year-old AA male. He presents to the ER complaining of suicidality or hallucinations. Today patient is calm and cooperative with a circumstantial thought process. He admits that he felt " weird and strange" on admission. He could not tell me if he was suicidal that day. Patient had previous admission ([facility] 06/09/16) and than transferred to [facility] for psychosis. Patient denies SI/HI;s and AVH's. VA level 11.7. DD: R/O Bipolar, Schizoaffective DO Recommendation/Plan: Continue 1013 with possible placement to outpatient services. Patient would benefit from an IOP setting.
[2016-06-23 14:18] LABS: Alkaline Phosphatase 77 units/L (35-129)
[2016-06-23] MEDS: RisperDAL PO SCH ×3 (21:40→21:45)
[2016-06-23] MEDS: COGENTIN PO SCH (21:40)
[2016-06-23] MEDS: HALDOL PO SCH (21:40)
--- NOTE | 2016-06-24 09:59 | Progress Note ---
Subjective - Reason for Consult Consult date: 06/24/16 Reason for consult: Psychiatry Follow-up - Chief Complaint Chief complaint: "Feel much better today" This is a 31-year-old AA male. He presents to the ER complaining of suicidality or hallucinations. Today patient is calm and cooperative with a circumstantial thought process. Patient stated that he feels much better today than yesterday. He felt that he needed rest. He stated, "When I don't rest I feel bad mentally. " He stated that "coping" is farrell for him to be "productive." He denies SI/HI's, AVH's, depression, or a poor appetite. He stated that he slept well last night. Patient would like information about therapists in his local area. Mental Status Exam - Vital signs Last Vital Signs Temp 97.8 F 06/24/16 08:34 Pulse 74 06/24/16 08:34 Resp 18 06/24/16 08:35 BP 100/56 06/24/16 08:34 Pulse Ox 100 06/24/16 08:34 - Exam Narrative exam: MSE: Appearance: calm, cooperative Behavior: poor eye contact Speech: regular rate and tone Mood: "Not depressed" Affect: flat Thought Process: circumstantial Thought Content: denies SI/HI's and AVH's Motor Activity: ambulatory Cognition: A/Ox3 Insight: fair Judgment: fair Assessment and Plan Impression: This is a 31-year-old AA male. He presents to the ER complaining of suicidality or hallucinations. Today patient is calm and cooperative with a circumstantial thought process. Patient stated that he feels much better today than yesterday. He felt that he needed rest. He stated, "When I don't rest I feel bad mentally." He stated that "coping" is farrell for him to be "productive." He denies SI/HI's, AVH's, depression, or a poor appetite. Recommendation/Plan: Continue 1013 with possible placement to inpatient or outpatient psy services ([facility]). Continue current medication treatment.
[2016-06-24] MEDS: VIBRAMYCIN PO SCH ×2 (10:01→21:57)
[2016-06-24] MEDS: COGENTIN PO SCH (21:33)
[2016-06-24] MEDS: HALDOL PO SCH (21:34)
[2016-06-24] MEDS: RisperDAL PO SCH ×2 (22:33→22:34)
[2016-06-25] MEDS: VIBRAMYCIN PO SCH ×2 (10:29→22:20)
--- NOTE | 2016-06-25 15:19 | Progress Note ---
Subjective - Reason for Consult Consult date: 06/25/16 Reason for consult: psychiatric follow up - Chief Complaint Chief complaint: "I'm tired of living there" Impression: This is a 31-year-old AA male. He presents to the ER complaining of suicidality or hallucinations. Today patient is calm and cooperative with a circumstantial/tangential thought process. He denies SI/HI's, AVH's, depression , or a poor appetite. He required redirection several times. Speech pressured. He talked about wanting to live independently. Mental Status Exam - Vital signs Last Vital Signs Temp 97.7 F 06/25/16 09:32 Pulse 56 L 06/25/16 09:32 Resp 20 06/25/16 09:32 BP 100/50 06/25/16 09:32 Pulse Ox 100 06/25/16 09:32 Assessment and Plan MSE: Appearance: calm, cooperative Behavior: poor eye contact Speech: pressured speech Mood: anxious Affect: flat Thought Process: circumstantial, tangential Thought Content: denies SI/HI's and AVH's Motor Activity: ambulatory Cognition: A/Ox3 Insight: fair Judgment: fair Impression: This is a 31-year-old AA male. He presents to the ER complaining of suicidality or hallucinations. Today patient is calm and cooperative with a circumstantial/tangential thought process. He denies SI/HI's, AVH's, depression , or a poor appetite. He required redirection several times. Speech pressured. Recommendation/Plan: Continue 1013 with placement to inpatient. Continue current medication treatment.
[2016-06-25] MEDS: HALDOL PO SCH (22:20)
[2016-06-25] MEDS: RisperDAL PO SCH ×2 (22:20)
[2016-06-25] MEDS: COGENTIN PO SCH (22:20)
[2016-06-26] MEDS: VIBRAMYCIN PO SCH (10:10)
--- NOTE | 2016-06-26 10:13 | Progress Note ---
Subjective - Reason for Consult Consult date: 06/26/16 Reason for consult: Psychiatry Follow-up - Chief Complaint Chief complaint: "I'm ready to be discharged" This is a 31-year-old AA male. He presents to the ER complaining of suicidality or hallucinations. Today patient is calm and cooperative with a circumstantial thought process. He stated that he would like to see a counselor weekly. He stated, "I need that in my life." He denies SI/HI's, AVH's, depression, poor appetite. Also, he denies sleep disturbance and no side effects from his psy medications. Mental Status Exam - Vital signs Last Vital Signs Temp 98.2 F 06/25/16 20:17 Pulse 63 06/25/16 20:17 Resp 16 06/25/16 20:17 BP 103/62 06/25/16 20:17 Pulse Ox 100 06/25/16 20:17 - Exam Narrative exam: MSE: Appearance: calm, cooperative Behavior: poor eye contact Speech: regular rate and tone Mood: "Not depressed" Affect: flat Thought Process: circumstantial Thought Content: denies SI/HI's and AVH's Motor Activity: ambulatory Cognition: A/Ox3 Insight: fair Judgment: fair Assessment and Plan Impression: This is a 31-year-old AA male. He presents to the ER complaining of suicidality or hallucinations. Today patient is calm and cooperative with a circumstantial thought process. He stated that he would like to see a counselor weekly. He stated, "I need that in my life." He denies SI/HI's, AVH's , depression, poor appetite. Patient is no threat to himself or anyone else. Recommendation/Plan: Rescind 1013. [facility] information given to patient for outpatient psy services.
[2016-06-26] MEDS: HALDOL PO SCH (22:00)
[2016-06-26] MEDS: COGENTIN PO SCH (22:00)
[2016-06-26] MEDS: RisperDAL PO SCH ×2 (22:00)
--- NOTE | 2016-06-27 10:09 | Progress Note ---
Subjective - Reason for Consult Consult date: 06/27/16 Reason for consult: Psychiatry Follow-up - Chief Complaint Chief complaint: "I'm ready to be discharged" This is a 31-year-old AA male. He presents to the ER complaining of suicidality or hallucinations. Today patient is calm and cooperative with linear thought process. He stated that he thought he was leaving yesterday. I explained to him why he didn't leave, and he stated, "I understand (no fault of the patient). Patient stated that he is ready to get his life together and be more responsible. He denies SI/HI's, AVH's, depression, poor appetite, or sleep disturbance. He reports no side effects from his current psy medications. Mental Status Exam - Vital signs Last Vital Signs Temp 98 F 06/26/16 19:00 Pulse 76 06/26/16 19:00 Resp 16 06/26/16 19:00 BP 108/68 06/26/16 19:00 Pulse Ox 100 06/26/16 19:00 - Exam Narrative exam: MSE: Appearance: calm, cooperative Behavior: good eye contact Speech: regular rate and tone Mood: "I feel pretty good" Affect: flat Thought Process: linear Thought Content: denies SI/HI's and AVH's Motor Activity: ambulatory Cognition: A/Ox3 Insight: fair Judgment: fair Assessment and Plan Impression: This is a 31-year-old AA male. He presents to the ER complaining of suicidality or hallucinations. Today patient is calm and cooperative with a linear thought process. He stated that he thought he was leaving yesterday. I explained to him why he didn't leave, and he stated, "I understand (no fault of the patient). Patient stated that he is ready to get his life together and be more responsible. Patient denies SI/HI's and AVH's. Recommendation/Plan: Rescind 1013. Patient is seen outpatient (psy services) at [facility]. Also, [facility] information given to patient for outpatient psy services. Continue Cogentin 1 mg PO HS, Haldol 5 mg PO HS, Risperdal 5 mg PO HS , and Depakote 500 mg PO BID. Safety contract completed with patient.
[2016-06-27 10:41] VITALS: BP 116/69
--- NOTE | 2016-06-27 10:54 | Event Note ---
Date: 06/27/16 Psychiatric consultation and evaluation is reviewed and appreciated. Psychiatry has discontinued the patient's 1013. I go back to reevaluate the patient. He is alert and oriented 3. He has a GCS of 15, with an NIH score of 0, walks with steady gait, he is not homicidal or suicidal. The lesions on the back appear to have been healing well. Psychiatrist recommendations are reviewed and appreciated. The patient is seen at outpatient psychiatric service at [facility]. Patient was also given information for the [facility]. Patient will be discharged at this time. He is clinically sober at this time. Return precautions are extensively reviewed. He has no acute medical complaints. Labs 06/22/16 06/22/16 06/22/16 01:01 01:01 01:01 WBC 10.0 RBC 4.61 Hgb 14.6 Hct 42.6 MCV 92 MCH 32 MCHC 34 RDW 13.8 Plt Count 197 Lymph % (Auto) 20.0 [place] % (Auto) 8.7 H Eos % (Auto) 1.2 Baso % (Auto) 0.7 Lymph # 2.0 [place] # 0.9 H Eos # 0.1 Baso # 0.1 Seg Neutrophils % 69.4 Seg Neutrophils # 7.0 Sodium 141 Potassium 3.9 Chloride 100.3 Carbon Dioxide 26 Anion Gap 19 BUN 9 Creatinine 1.0 Estimated GFR > 60 BUN/Creatinine Ratio 9.00 Glucose 92 Calcium 9.1 AST ALT Alkaline Phosphatase Total Creatine Kinase Urine Color Urine Turbidity Urine pH Ur Specific [place] Urine Protein Urine Glucose (UA) Urine Ketones Urine Blood Urine Nitrite Urine Bilirubin Urine Urobilinogen Ur Leukocyte Esterase Urine WBC (Auto) Urine RBC (Auto) U Epithel Cells (Auto) Urine Mucus Salicylates Urine Opiates Screen Urine Methadone Screen Acetaminophen Ur Barbiturates Screen Valproic Acid Ur Phencyclidine Scrn Ur Amphetamines Screen U Benzodiazepines Scrn Urine Cocaine Screen U Marijuana (THC) Screen Drugs of Abuse Note Plasma/Serum Alcohol < 0.01 06/22/16 06/22/16 06/22/16 04:33 Unknown Unknown WBC RBC Hgb Hct MCV MCH MCHC RDW Plt Count Lymph % (Auto) [place] % (Auto) Eos % (Auto) Baso % (Auto) Lymph # [place] # Eos # Baso # Seg Neutrophils % Seg Neutrophils # Sodium Potassium Chloride Carbon Dioxide Anion Gap BUN Creatinine Estimated GFR BUN/Creatinine Ratio Glucose Calcium AST ALT Alkaline Phosphatase Total Creatine Kinase Urine Color Yellow Urine Turbidity Clear Urine pH 6.0 Ur Specific [place] 1.013 Urine Protein <15 mg/dl Urine Glucose (UA) Neg Urine Ketones Neg Urine Blood Neg Urine Nitrite Neg Urine Bilirubin Neg Urine Urobilinogen 2.0 Ur Leukocyte Esterase Neg Urine WBC (Auto) 3.0 Urine RBC (Auto) 1.0 U Epithel Cells (Auto) 1.0 Urine Mucus Few Salicylates Urine Opiates Screen Presumptive negative Urine Methadone Screen Presumptive negative Acetaminophen Ur Barbiturates Screen Presumptive negative Valproic Acid 11.6 L Ur Phencyclidine Scrn Presumptive negative Ur Amphetamines Screen Presumptive negative U Benzodiazepines Scrn Presumptive negative Urine Cocaine Screen Presumptive negative U Marijuana (THC) Screen Presumptive negative Drugs of Abuse Note Disclamer Plasma/Serum Alcohol 06/22/16 06/22/16 06/22/16 Unknown Unknown Unknown WBC RBC Hgb Hct MCV MCH MCHC RDW Plt Count Lymph % (Auto) [place] % (Auto) Eos % (Auto) Baso % (Auto) Lymph # [place] # Eos # Baso # Seg Neutrophils % Seg Neutrophils # Sodium Potassium Chloride Carbon Dioxide Anion Gap BUN Creatinine Estimated GFR BUN/Creatinine Ratio Glucose Calcium AST ALT Alkaline Phosphatase Total Creatine Kinase 279 H Urine Color Urine Turbidity Urine pH Ur Specific [place] Urine Protein Urine Glucose (UA) Urine Ketones Urine Blood Urine Nitrite Urine Bilirubin Urine Urobilinogen Ur Leukocyte Esterase Urine WBC (Auto) Urine RBC (Auto) U Epithel Cells (Auto) Urine Mucus Salicylates < 0.3 L Urine Opiates Screen Urine Methadone Screen Acetaminophen < 15.0 Ur Barbiturates Screen Valproic Acid Ur Phencyclidine Scrn Ur Amphetamines Screen U Benzodiazepines Scrn Urine Cocaine Screen U Marijuana (THC) Screen Drugs of Abuse Note Plasma/Serum Alcohol 06/23/16 06/23/16 13:47 13:47 WBC RBC Hgb Hct MCV MCH MCHC RDW Plt Count Lymph % (Auto) [place] % (Auto) Eos % (Auto) Baso % (Auto) Lymph # [place] # Eos # Baso # Seg Neutrophils % Seg Neutrophils # Sodium Potassium Chloride Carbon Dioxide Anion Gap BUN Creatinine Estimated GFR BUN/Creatinine Ratio Glucose Calcium AST 11 ALT 6 L Alkaline Phosphatase 77 Total Creatine Kinase Urine Color Urine Turbidity Urine pH Ur Specific [place] Urine Protein Urine Glucose (UA) Urine Ketones Urine Blood Urine Nitrite Urine Bilirubin Urine Urobilinogen Ur Leukocyte Esterase Urine WBC (Auto) Urine RBC (Auto) U Epithel Cells (Auto) Urine Mucus Salicylates Urine Opiates Screen Urine Methadone Screen Acetaminophen Ur Barbiturates Screen Valproic Acid Ur Phencyclidine Scrn Ur Amphetamines Screen U Benzodiazepines Scrn Urine Cocaine Screen U Marijuana (THC) Screen Drugs of Abuse Note Plasma/Serum Alcohol Vital Signs 06/22/16 06/22/16 06/22/16 01:15 09:32 21:41 Temperature 99.3 F 98.5 F 98.8 F Pulse Rate 93 H 68 82 Respiratory 18 18 20 Rate Blood Pressure 109/78 Blood Pressure 109/78 108/60 100/65 [Right] O2 Sat by Pulse 99 99 100 Oximetry 06/23/16 06/23/16 06/23/16 06:12 14:26 20:27 Temperature 98.2 F 98.4 F Pulse Rate 92 H 87 Respiratory 20 16 20 Rate Blood Pressure Blood Pressure 104/68 107/66 [Right] O2 Sat by Pulse 100 99 100 Oximetry 06/23/16 06/24/16 06/24/16 20:29 08:34 08:35 Temperature 97.8 F Pulse Rate 74 Respiratory 20 18 18 Rate Blood Pressure Blood Pressure 100/56 [Right] O2 Sat by Pulse 100 100 Oximetry 06/24/16 06/24/16 06/25/16 20:16 20:18 05:25 Temperature 99.2 F 98.5 F Pulse Rate 68 89 Respiratory 18 18 20 Rate Blood Pressure Blood Pressure 99/67 100/65 [Right] O2 Sat by Pulse 99 100 Oximetry 06/25/16 06/25/16 06/26/16 09:32 20:17 13:02 Temperature 97.7 F 98.2 F Pulse Rate 56 L 63 Respiratory 20 16 18 Rate Blood Pressure Blood Pressure 100/50 103/62 [Right] O2 Sat by Pulse 100 100 100 Oximetry 06/26/16 06/26/16 06/27/16 16:32 19:00 10:40 Temperature 97.8 F 98 F 98.6 F Pulse Rate 62 76 100 H Respiratory 18 16 18 Rate Blood Pressure Blood Pressure 106/67 108/68 116/69 [Right] O2 Sat by Pulse 99 100 98 Oximetry
== END 2016-06-27 12:00 | disposition home or self-care (01) ==
LOC: EEVIPCON 00:32 → ED 00:32
DX: F32.9 Major depressive disorder, single episode, unspecified (principal); R45.851 Suicidal ideations
CPT/HCPCS: 36415; 80048; 80164; 80307; 81001; 82550; 84075; 84450; 84460; 85025; 96372; 99285; G0480; J2060; 80320

== ENCOUNTER 2016-06-27 18:49 | Emergency (ER) | payer MEDICAID ==
[2016-06-27 19:49] VITALS: BP 94/64
[2016-06-27 20:13] LABS: Hematocrit 47.8 % (35.5-45.6); Hemoglobin 15.7 gm/dl (11.8-15.2); Mean Corpuscular HGB Conc 33 % (32-34); Mean Corpuscular Hemoglobin 31 pg (28-32); Mean Corpuscular Volume 93 fl (84-94); Platelet Count 245 K/mm3 (140-440); Red Blood Count 5.14 M/mm3 (3.65-5.03); Red Cell Distribution Width 13.2 % (13.2-15.2); White Blood Count 11.5 K/mm3 (4.5-11.0)
[2016-06-27 20:15] LABS: Basophils % (Auto) 0.3 % (0.0-1.8)
[2016-06-27 20:28] LABS: BUN/Creatinine Ratio 10.76; Blood Urea Nitrogen 14 mg/dL (9-20); Calcium 10.2 mg/dL (8.4-10.2); Carbon Dioxide 21 mmol/L (22-30); Chloride 93.6 mmol/L (98-107); Glucose 121 mg/dL (75-100); Sodium 135 mmol/L (137-145)
[2016-06-27 21:47] LABS: Anion Gap 25 mmol/L; Potassium 4.2 mmol/L (3.6-5.0)
[2016-06-28 00:44] LABS: Urine Drugs of Abuse Note Disclamer
[2016-06-28 01:00] LABS: Bilirubin,Urine NEG (Negative); Blood,Urine NEG (Negative); Ketones,Urine TR mg/dL (Negative); Leukocyte Esterase,Urine NEG (Negative); Mucus,Urine 3+ /HPF; Nitrite,Urine NEG (Negative); Urobilinogen,Urine < 2.0 mg/dL (<2.0)
--- NOTE | 2016-06-29 00:18 | ED Elopement Review ---
ED Pt Elopement review - Results review Lab results: Laboratory Tests 06/27/16 06/27/16 06/27/16 19:51 19:51 19:51 WBC 11.5 H RBC 5.14 H Hgb 15.7 H Hct 47.8 H MCV 93 MCH 31 MCHC 33 RDW 13.2 Plt Count 245 Lymph % (Auto) 7.8 L [place] % (Auto) 9.8 H Eos % (Auto) 0.0 Baso % (Auto) 0.3 Lymph # 0.9 L [place] # 1.1 H Eos # 0.0 Baso # 0.0 Seg Neutrophils % 82.1 H Seg Neutrophils # 9.4 H Sodium 135 L Potassium 4.2 Chloride 93.6 L Carbon Dioxide 21 L Anion Gap 25 BUN 14 Creatinine 1.3 Estimated GFR > 60 BUN/Creatinine Ratio 10.76 Glucose 121 H Calcium 10.2 Urine Color Urine Turbidity Urine pH Ur Specific [place] Urine Protein Urine Glucose (UA) Urine Ketones Urine Blood Urine Nitrite Urine Bilirubin Urine Urobilinogen Ur Leukocyte Esterase Urine WBC (Auto) Urine RBC (Auto) U Epithel Cells (Auto) Hyaline Casts Urine Mucus Urine Opiates Screen Urine Methadone Screen Ur Barbiturates Screen Ur Phencyclidine Scrn Ur Amphetamines Screen U Benzodiazepines Scrn Urine Cocaine Screen U Marijuana (THC) Screen Drugs of Abuse Note Plasma/Serum Alcohol < 0.01 06/28/16 06/28/16 00:11 00:11 WBC RBC Hgb Hct MCV MCH MCHC RDW Plt Count Lymph % (Auto) [place] % (Auto) Eos % (Auto) Baso % (Auto) Lymph # [place] # Eos # Baso # Seg Neutrophils % Seg Neutrophils # Sodium Potassium Chloride Carbon Dioxide Anion Gap BUN Creatinine Estimated GFR BUN/Creatinine Ratio Glucose Calcium Urine Color [place] Urine Turbidity Clear Urine pH 5.0 Ur Specific [place] 1.029 Urine Protein 30 mg/dl Urine Glucose (UA) Neg Urine Ketones Tr Urine Blood Neg Urine Nitrite Neg Urine Bilirubin Neg Urine Urobilinogen < 2.0 Ur Leukocyte Esterase Neg Urine WBC (Auto) 4.0 Urine RBC (Auto) 3.0 U Epithel Cells (Auto) 1.0 Hyaline Casts 7 Urine Mucus 3+ Urine Opiates Screen Presumptive negative Urine Methadone Screen Presumptive negative Ur Barbiturates Screen Presumptive negative Ur Phencyclidine Scrn Presumptive negative Ur Amphetamines Screen Presumptive negative U Benzodiazepines Scrn Presumptive negative Urine Cocaine Screen Presumptive negative U Marijuana (THC) Screen Presumptive positive Drugs of Abuse Note Disclamer Plasma/Serum Alcohol - Call Back decision Pt Call Back Decision: No action required
== END 2016-06-27 23:45 | disposition left against medical advice (07) ==
LOC: EEVIPCON 18:49 → ED 18:49
DX: I10 Essential (primary) hypertension (principal); Z53.21 Procedure and treatment not carried out due to patient leaving prior to being seen by health care provider
CPT/HCPCS: 36415; 80048; 80307; 81001; 85025; G0480; 80320

== ENCOUNTER 2016-07-29 02:18 | Emergency (ER) | payer MEDICAID ==
[2016-07-29 03:28] LABS: Anion Gap 20 mmol/L; BUN/Creatinine Ratio 6.66; Blood Urea Nitrogen 6 mg/dL (9-20); Calcium 8.9 mg/dL (8.4-10.2); Carbon Dioxide 24 mmol/L (22-30); Chloride 98.3 mmol/L (98-107); Glucose 109 mg/dL (75-100); Potassium 3.8 mmol/L (3.6-5.0); Sodium 138 mmol/L (137-145)
[2016-07-29 03:42] LABS: Basophils % (Auto) 0.6 % (0.0-1.8); Eosinophils % (Auto) 1.7 % (0.0-4.3); Hematocrit 41.7 % (35.5-45.6); Hemoglobin 14.2 gm/dl (11.8-15.2); Mean Corpuscular HGB Conc 34 % (32-34); Mean Corpuscular Hemoglobin 31 pg (28-32); Mean Corpuscular Volume 90 fl (84-94); Platelet Count 334 K/mm3 (140-440); Red Blood Count 4.62 M/mm3 (3.65-5.03); Red Cell Distribution Width 13.8 % (13.2-15.2); White Blood Count 8.8 K/mm3 (4.5-11.0)
--- NOTE | 2016-07-29 06:43 | Emergency Department Report ---
HPI - General Chief Complaint: Psych Time Seen by Provider: 07/29/16 06:13 - HPI HPI: This is a 31-year-old Afro-[place] male who presents to the emergency department via police from his care home with the complaint of wanting to harm himself. Patient has a history of anxiety, schizophrenia and bipolar disorder, which is the reason for him having residence at a behavioral care home. While the patient does admit to still having thoughts of harming himself secondary to auditory hallucinations, he is not very forthcoming at this time with his complaints or answered questions. However he says that he does not have his explicit plan as to how he would harm himself. He denies any homicidal ideations. He has a past medical history of hypertension. There is a medication list from May of this year that shows the patient to be on Cogentin , Depakote, Haldol and Risperdal but I am unable to confirm these medications at this time. ED Past Medical Hx - Past Medical History Previous Medical History?: Yes Hx Hypertension: Yes Hx Psychiatric Treatment: Yes (anxiety, schizophrenia, bipolar) - Surgical History Past Surgical History?: No - Social History Smoking Status: Never Smoker - Medications Home Medications: Home Medications Medication Instructions Recorded Confirmed Last Taken Type Benztropine [Cogentin] 1 mg PO QHS #30 tablet 06/27/16 07/29/[address] [Depakote Dr] 500 mg PO BID #60 tablet 06/27/16 07/29/16 Unknown Rx Haloperidol [Haldol] 5 mg PO HS #30 tablet 06/27/16 07/29/16 Unknown Rx risperiDONE [RisperDAL] 5 mg PO QHS #30 tablet 06/27/16 07/29/16 Unknown Rx ED Review of Systems ROS: Stated complaint: MH EVAL Other details as noted in HPI Comment: All other systems reviewed and negative Constitutional: denies: chills, fever Eyes: denies: eye pain, eye discharge, vision change ENT: denies: ear pain, throat pain Respiratory: denies: cough, shortness of breath, wheezing Cardiovascular: denies: chest pain, palpitations Gastrointestinal: denies: abdominal pain, nausea, diarrhea Genitourinary: denies: urgency, dysuria Musculoskeletal: denies: back pain, joint swelling, arthralgia Skin: denies: rash, lesions Neurological: denies: headache, weakness, paresthesias Psychiatric: auditory hallucinations, suicidal thoughts. denies: visual hallucinations, homicidal thoughts Physical Exam - Physical Exam Vital Signs: Vital Signs 07/29/16 07/29/16 07/29/16 02:48 04:08 06:07 Temperature 97.8 F Pulse Rate 73 78 75 Respiratory 18 20 18 Rate Blood Pressure 107/85 Blood Pressure 103/62 110/68 [Left] O2 Sat by Pulse 100 100 100 Oximetry Physical Exam: GENERAL: The patient is well-developed well-nourished. HEENT: Normocephalic. Atraumatic. Extraocular motions are intact. Patient has moist mucous membranes. Pupils equal reactive to light bilaterally. NECK: Supple. Trachea is midline. CHEST/LUNGS: Clear to auscultation. There is no respiratory distress noted. HEART/CARDIOVASCULAR: Regular. There is no tachycardia. There is no gallop rub or murmur. ABDOMEN: Abdomen is soft, nontender. Patient has normal bowel sounds. There is no abdominal distention. SKIN: There is no rash. There is no edema. There is no diaphoresis. NEURO: The patient is awake, alert, and oriented. The patient is cooperative. The patient has no focal neurologic deficits. MUSCULOSKELETAL: There is no tenderness or deformity. There is no limitation range of motion. There is no evidence of acute injury. PSYCH: Patient has a flat affect. ED Course Vital Signs 07/29/16 07/29/16 07/29/16 02:48 04:08 06:07 Temperature 97.8 F Pulse Rate 73 78 75 Respiratory 18 20 18 Rate Blood Pressure 107/85 Blood Pressure 103/62 110/68 [Left] O2 Sat by Pulse 100 100 100 Oximetry ED Medical Decision Making - Lab Data Result diagrams: 07/29/16 02:58 07/29/16 02:58 - Medical Decision Making This is a 31-year-old male who presents via police from his care home with the complaint of auditory hallucinations that make him want to harm himself. He does not have a specific plan. The patient is not very forthcoming and has a flat affect. For the reasons of self-harm versus suicidal ideations, the patient has been made a 1013. His labs are unremarkable and do not show any etiology of the patient's symptoms. Vital signs stable throughout his ED course. The patient appears medically stable/cleared for psychiatric placement. - Differential Diagnosis schizophrenia, schizoaffective, bipolar, depression Critical Care Time: No Critical care attestation.: If time is entered above; I have spent that time in minutes in the direct care of this critically ill patient, excluding procedure time. ED Disposition Clinical Impression: Suicidal ideations Schizophrenia Qualifiers: Schizophrenia type: unspecified Qualified Code(s): F20.9 - Schizophrenia, unspecified Bipolar disorder Qualifiers: Active/Remission status: remission status unspecified Qualified Code(s): F31.9 - Bipolar disorder, unspecified Disposition: DC/TX PSY HOSP/PSY UNIT Is pt being admited?: No Condition: Stable Referrals: PRIMARY CARE [Primary Care Provider] - 3-5 Days Time of Disposition: 07:32
[2016-07-29 06:56] LABS: Urine Drugs of Abuse Note Disclamer
[2016-07-29 07:11] LABS: Bilirubin,Urine NEG (Negative); Blood,Urine NEG (Negative); Ketones,Urine NEG (Negative); Leukocyte Esterase,Urine NEG (Negative); Nitrite,Urine NEG (Negative); Protein,Urine <15 mg/dL mg/dL (Negative); RBC,Urine < 1.0 /HPF (0.0-6.0); Urobilinogen,Urine < 2.0 mg/dL (<2.0)
[2016-07-29 11:38] VITALS: BP 110/61
--- NOTE | 2016-07-29 11:44 | Consultation ---
History of Present Illness - Reason for Consult Consult date: 07/29/16 Reason for consult: Mental Health Evaluation Requesting physician: ERIC NAIK - Chief Complaint Chief complaint: "I don't feel well" - History of Present Psychiatric Illness This is a 31-year-old Afro-[place] male who presents to the emergency department via police from his [facility] with the complaint of wanting to harm himself. This is a patient known to me. Today patient is calm and cooperative, with a tangential thought process. He stated that he felt suicidal yesterday, but denies those thoughts today. He denies abuse or bullying at his place of residence "[place]." During our conversation patient had poor eye contact and delayed responses. Patient could be responding to internal stimuli. He is disorganized with his thought content. He admit to taking his psy medications ( Risperdal, Haldol, Cogentin, and Depakote). Patient had to be redirected several times during our conversation. He denies SI/HI's, AVH's and depression symptoms. He denies recreational drug use or alcohol consumption (etoh). This is the same type of bizarre behavior that he presented with on his previous admission. Medications and Allergies Allergies Allergy/AdvReac Type Severity Reaction Status Date / Time quetiapine fumarate Allergy Unknown Verified 04/20/16 07:33 [From Seroquel] Home Medications Medication Instructions Recorded Confirmed Last Taken Type Benztropine [Cogentin] 1 mg PO QHS #30 tablet 06/27/16 07/29/[address] [Depakote Dr] 500 mg PO BID #60 tablet 06/27/16 07/29/16 Unknown Rx Haloperidol [Haldol] 5 mg PO HS #30 tablet 06/27/16 07/29/16 Unknown Rx risperiDONE [RisperDAL] 5 mg PO QHS #30 tablet 06/27/16 07/29/16 Unknown Rx Past psychiatric history - Past Medical History Past Medical History: No medical history Past Surgical History: No surgical history - past Psychiatric treatment and history Psych: Bipolar, Schizophrenia psychiatric treatment history: Multiple psy inpatient settings. Denies fam psy hx. - Social History Social history: other (Live at [facility]) Mental Status Exam - Vital signs Last Vital Signs Temp 98.5 F 07/29/16 11:37 Pulse 63 05/30/17 11:37 Resp 16 07/29/16 11:37 BP 110/61 07/29/16 11:37 Pulse Ox 98 07/29/16 11:37 - Exam Narrative exam: ROS: (+) disorganized, (-) depression MSE; Appearance: calm, cooperative Behavior: poor eye contact Speech: regular rate and tone Mood: "okay" Affect: congruent to mood Thought Process: tangential Thought Content: no gestures of SI/HI's and AVH's Motor Activity: lying in bed Cognition: a/ox 3 Insight: limited Judgment: limited Results Result Diagrams: 07/29/16 02:58 07/29/16 02:58 Abnormal lab results 07/29/16 07/29/16 Range/Units 02:52 02:58 BUN 6 L (9-20) mg/dL Glucose 109 H (75-100) mg/dL Valproic Acid 17.6 L (50-100) ug/mL All other labs normal. Assessment and Plan Assessment and plan: Impression: Unspecified Mood DO. This is a 31-year-old Afro[place] male who presents to the emergency department via police from his [facility] with the complaint of wanting to harm himself. This is a patient known to me. Today patient is calm and cooperative, with a tangential thought process. He stated that he felt suicidal yesterday, but denies those thoughts today. He denies abuse or bullying at his place of residence [place]. During our conversation patient had poor eye contact and delayed responses. Patient could be responding to internal stimuli. He is disorganized with his thought content. VA 17.6. DD: R/O Bipolar, Schizoaffective DO Recommendation/Plan: Continue 1013 with pending placement to inpatient psy services.
== END 2016-07-29 14:39 ==
LOC: ED 02:18
DX: F20.9 Schizophrenia, unspecified (principal); F31.9 Bipolar disorder, unspecified; R45.851 Suicidal ideations; I10 Essential (primary) hypertension; F41.9 Anxiety disorder, unspecified
CPT/HCPCS: 36415; 80048; 80164; 80307; 81001; 85025; 99285; G0480; 80320

== ENCOUNTER 2016-08-17 23:50 | Emergency (ER) | payer MEDICAID ==
[2016-08-18 02:10] LABS: Urine Drugs of Abuse Note Disclamer
[2016-08-18 02:16] LABS: Bilirubin,Urine NEG (Negative); Blood,Urine NEG (Negative); Ketones,Urine NEG (Negative); Leukocyte Esterase,Urine NEG (Negative); Mucus,Urine FEW /HPF; Nitrite,Urine NEG (Negative); Protein,Urine <15 mg/dL mg/dL (Negative); RBC,Urine < 1.0 /HPF (0.0-6.0)
[2016-08-18 02:27] LABS: Basophils % (Auto) 0.7 % (0.0-1.8); Eosinophils % (Auto) 3.4 % (0.0-4.3); Hematocrit 40.4 % (35.5-45.6); Hemoglobin 13.8 gm/dl (11.8-15.2); Mean Corpuscular HGB Conc 34 % (32-34); Mean Corpuscular Hemoglobin 31 pg (28-32); Mean Corpuscular Volume 90 fl (84-94); Platelet Count 248 K/mm3 (140-440); Red Blood Count 4.48 M/mm3 (3.65-5.03); Red Cell Distribution Width 15.2 % (13.2-15.2); White Blood Count 7.5 K/mm3 (4.5-11.0)
[2016-08-18 02:35] LABS: Alanine Aminotransferase 7 units/L (7-56); Albumin/Globulin Ratio 1.1 %; Alkaline Phosphatase 81 units/L (35-129); Anion Gap 16 mmol/L; BUN/Creatinine Ratio 7.77; Bilirubin,Total < 0.20 mg/dL (0.1-1.2); Blood Urea Nitrogen 7 mg/dL (9-20); Calcium 9.1 mg/dL (8.4-10.2); Carbon Dioxide 25 mmol/L (22-30); Chloride 97.5 mmol/L (98-107); Glucose 91 mg/dL (75-100); Potassium 3.8 mmol/L (3.6-5.0); Sodium 135 mmol/L (137-145); Total Protein 7.8 g/dL (6.3-8.2)
[2016-08-18] MEDS ORDERED: ATIVAN IM PRN (03:28)
--- NOTE | 2016-08-18 03:30 | Emergency Department Report ---
ED Psych HPI - General Chief Complaint: Psych Stated Complaint: BIPOLAR/CHRONIC DEPRESSION/HEARING VOICES/SCHIZOPH Time Seen by Provider: 08/18/16 03:21 Source: patient, RN notes reviewed, old records reviewed Mode of arrival: Ambulatory Limitations: No Limitations - History of Present Illness Initial Comments: This is a 31-year-old male. I have evaluated him in the past. He has a past medical history of psychiatric disease/psychosis. He presents to the ER complaining of hallucinations. He indicated that he wants to hurt himself to the triage nurse. He denies this complaint. He denies headache, neck pain, chest pain, abdominal pain or shortness of breath. He denies irritative and obstructive urinary symptoms. He denies intentional overdose. He denies access to guns firearms. He cannot describe any exacerbating or relieving factors. MD Complaint: other -: Gradual Associated Psychiatric Symptoms: suicidal ideation, auditory hallucinations History of same: Yes Quality: intermittent Improves With: none Worsens With: none Associated Symptoms: denies other symptoms Treatments Prior to Arrival: none - Related Data Previous Rx's Medication Instructions Recorded Last Taken Type Benztropine [Cogentin] 1 mg PO QHS #30 tablet 06/27/[address] [Depakote Dr] 500 mg PO BID #60 tablet 06/27/16 Unknown Rx Haloperidol [Haldol] 5 mg PO HS #30 tablet 06/27/16 Unknown Rx risperiDONE [RisperDAL] 5 mg PO QHS #30 tablet 06/27/16 Unknown Rx Allergies Allergy/AdvReac Type Severity Reaction Status Date / Time quetiapine fumarate Allergy Unknown Verified 04/20/16 07:33 [From Seroquel] ED Review of Systems ROS: Stated complaint: BIPOLAR/CHRONIC DEPRESSION/HEARING VOICES/SCHIZOPH Other details as noted in HPI Constitutional: denies: fever, malaise Eyes: denies: vision change ENT: denies: epistaxis Respiratory: denies: cough Cardiovascular: denies: chest pain Gastrointestinal: denies: abdominal pain Genitourinary: as per HPI. denies: dysuria Musculoskeletal: as per HPI Neurological: denies: weakness Psychiatric: denies: suicidal thoughts ED Past Medical Hx - Past Medical History Hx Hypertension: Yes Hx Psychiatric Treatment: Yes (anxiety, schizophrenia, bipolar) - Surgical History Past Surgical History?: No - Social History Smoking Status: Current Every Day Smoker Substance Use Type: None - Medications Home Medications: Home Medications Medication Instructions Recorded Confirmed Last Taken Type Benztropine [Cogentin] 1 mg PO QHS #30 tablet 06/27/16 08/18/[address] [Depakote Dr] 500 mg PO BID #60 tablet 06/27/16 08/18/16 Unknown Rx Haloperidol [Haldol] 5 mg PO HS #30 tablet 06/27/16 08/18/16 Unknown Rx risperiDONE [RisperDAL] 5 mg PO QHS #30 tablet 06/27/16 08/18/16 Unknown Rx ED Physical Exam - General Limitations: No Limitations General appearance: alert, in no apparent distress - Head Head exam: Present: atraumatic, normocephalic - Eye Eye exam: Present: normal appearance, EOMI. Absent: nystagmus - ENT ENT exam: Present: normal exam, normal orophraynx, mucous membranes moist, normal external ear exam - Neck Neck exam: Present: normal inspection, full ROM. Absent: tenderness, meningismus - Respiratory Respiratory exam: Present: normal lung sounds bilaterally. Absent: respiratory distress, wheezes, rales, rhonchi, stridor, chest wall tenderness, accessory muscle use, decreased breath sounds, prolonged expiratory - Cardiovascular Cardiovascular Exam: Present: regular rate, normal rhythm, normal heart sounds. Absent: bradycardia, tachycardia, irregular rhythm, systolic murmur, diastolic murmur, rubs, gallop - GI/Abdominal GI/Abdominal exam: Present: soft, normal bowel sounds. Absent: distended, tenderness, guarding, rebound, rigid, pulsatile mass - Rectal Rectal exam: Present: deferred - Extremities Exam Extremities exam: Present: normal inspection, full ROM, normal capillary refill. Absent: tenderness, pedal edema, joint swelling, calf tenderness - Back Exam Back exam: Present: normal inspection, full ROM. Absent: tenderness, CVA tenderness (R), CVA tenderness (L), muscle spasm, paraspinal tenderness, vertebral tenderness - Neurological Exam Neurological exam: Present: alert, oriented X3, normal gait, other (Extraocular movements intact. Tongue midline. No facial droop. Facial sensation intact to light touch in the V1, V2, V3 distribution bilaterally. 5 and 5 strength in 4 extremities.. Sensation is intact to light touch in 4 extremities.). Absent : motor sensory deficit - Psychiatric Psychiatric exam: Present: normal affect, normal mood - Skin Skin exam: Present: warm, dry, intact, normal color. Absent: rash ED Course Vital Signs 08/18/16 08/18/16 00:57 01:31 Temperature 98.7 F Pulse Rate 66 Respiratory 18 18 Rate Blood Pressure 120/73 Blood Pressure 120/73 [Right] O2 Sat by Pulse 100 100 Oximetry - Reevaluation(s) Reevaluation #1: 08/18/16 04:55 differential diagnosis: Mood disorder, psychosis, chronic hallucinations, medical clearance for psychiatric placement Assessment and plan: 31-year-old male with reported history of hallucinations and suicidality. to me, the patient denies suicidality. However, I have evaluated him the past. Given his report of suicidality to the triage nurse, he is placed on a 1013. His laboratory studies are unremarkable. We will continue his medications. At this point in time, there is no immediate medical contraindication to psychiatric admission/evaluation/consultation. Crisis team was informed. ED Medical Decision Making - Lab Data Result diagrams: 08/18/16 01:52 08/18/16 01:52 Vital Signs 08/18/16 08/18/16 00:57 01:31 Temperature 98.7 F Pulse Rate 66 Respiratory 18 18 Rate Blood Pressure 120/73 Blood Pressure 120/73 [Right] O2 Sat by Pulse 100 100 Oximetry Lab Results 08/18/16 08/18/16 08/18/16 Range/Units 01:45 01:45 01:52 WBC 7.5 (4.5-11.0) K/mm3 RBC 4.48 (3.65-5.03) M/mm3 Hgb 13.8 (11.8-15.2) gm/dl Hct 40.4 (35.5-45.6) % MCV 90 (84-94) fl MCH 31 (28-32) pg MCHC 34 (32-34) % RDW 15.2 (13.2-15.2) % Plt Count 248 (140-440) K/mm3 Lymph % (Auto) 35.8 H (13.4-35.0) % [place] % (Auto) 7.5 H (0.0-7.3) % Eos % (Auto) 3.4 (0.0-4.3) % Baso % (Auto) 0.7 (0.0-1.8) % Lymph # 2.7 (1.2-5.4) K/mm3 [place] # 0.6 (0.0-0.8) K/mm3 Eos # 0.3 (0.0-0.4) K/mm3 Baso # 0.0 (0.0-0.1) K/mm3 Seg Neutrophils % 52.6 (40.0-70.0) % Seg Neutrophils # 4.0 (1.8-7.7) K/mm3 Sodium (137-145) mmol/L Potassium (3.6-5.0) mmol/L Chloride (98-107) mmol/L Carbon Dioxide (22-30) mmol/L Anion Gap mmol/L BUN (9-20) mg/dL Creatinine (0.8-1.5) mg/dL Estimated GFR ml/min BUN/Creatinine Ratio % Glucose (75-100) mg/dL Calcium (8.4-10.2) mg/dL Total Bilirubin (0.1-1.2) mg/dL AST (5-40) units/L ALT (7-56) units/L Alkaline Phosphatase (35-129) units/L Total Creatine Kinase (55-170) units/L Total Protein (6.3-8.2) g/dL Albumin (3.9-5) g/dL Albumin/Globulin Ratio % Urine Color Yellow (Yellow) Urine Turbidity Clear (Clear) Urine pH 5.0 (5.0-7.0) Ur Specific [place] 1.016 (1.003-1.030) Urine Protein <15 mg/dl (Negative) mg/dL Urine Glucose (UA) Neg (Negative) mg/dL Urine Ketones Neg (Negative) mg/dL Urine Blood Neg (Negative) Urine Nitrite Neg (Negative) Urine Bilirubin Neg (Negative) Urine Urobilinogen 2.0 (<2.0) mg/dL Ur Leukocyte Esterase Neg (Negative) Urine WBC (Auto) 1.0 (0.0-6.0) /HPF Urine RBC (Auto) < 1.0 (0.0-6.0) /HPF U Epithel Cells (Auto) < 1.0 (0-13.0) /HPF Urine Mucus Few /HPF Salicylates (2.8-20.0) mg/dL Urine Opiates Screen Presumptive negative Urine Methadone Screen Presumptive negative Acetaminophen (10.0-30.0) ug/mL Ur Barbiturates Screen Presumptive negative Ur Phencyclidine Scrn Presumptive negative Ur Amphetamines Screen Presumptive negative U Benzodiazepines Scrn Presumptive negative Urine Cocaine Screen Presumptive negative U Marijuana (THC) Screen Presumptive negative Drugs of Abuse Note Disclamer Plasma/Serum Alcohol (0-0.07) gm% 08/18/16 08/18/16 08/18/16 Range/Units 01:52 01:52 02:10 WBC (4.5-11.0) K/mm3 RBC (3.65-5.03) M/mm3 Hgb (11.8-15.2) gm/dl Hct (35.5-45.6) % MCV (84-94) fl MCH (28-32) pg MCHC (32-34) % RDW (13.2-15.2) % Plt Count (140-440) K/mm3 Lymph % (Auto) (13.4-35.0) % [place] % (Auto) (0.0-7.3) % Eos % (Auto) (0.0-4.3) % Baso % (Auto) (0.0-1.8) % Lymph # (1.2-5.4) K/mm3 [place] # (0.0-0.8) K/mm3 Eos # (0.0-0.4) K/mm3 Baso # (0.0-0.1) K/mm3 Seg Neutrophils % (40.0-70.0) % Seg Neutrophils # (1.8-7.7) K/mm3 Sodium 135 L (137-145) mmol/L Potassium 3.8 (3.6-5.0) mmol/L Chloride 97.5 L (98-107) mmol/L Carbon Dioxide 25 (22-30) mmol/L Anion Gap 16 mmol/L BUN 7 L (9-20) mg/dL Creatinine 0.9 (0.8-1.5) mg/dL Estimated GFR > 60 ml/min BUN/Creatinine Ratio 7.77 % Glucose 91 (75-100) mg/dL Calcium 9.1 (8.4-10.2) mg/dL Total Bilirubin < 0.20 (0.1-1.2) mg/dL AST 13 (5-40) units/L ALT 7 (7-56) units/L Alkaline Phosphatase 81 (35-129) units/L Total Creatine Kinase 311 H (55-170) units/L Total Protein 7.8 (6.3-8.2) g/dL Albumin 4.0 (3.9-5) g/dL Albumin/Globulin Ratio 1.1 % Urine Color (Yellow) Urine Turbidity (Clear) Urine pH (5.0-7.0) Ur Specific [place] (1.003-1.030) Urine Protein (Negative) mg/dL Urine Glucose (UA) (Negative) mg/dL Urine Ketones (Negative) mg/dL Urine Blood (Negative) Urine Nitrite (Negative) Urine Bilirubin (Negative) Urine Urobilinogen (<2.0) mg/dL Ur Leukocyte Esterase (Negative) Urine WBC (Auto) (0.0-6.0) /HPF Urine RBC (Auto) (0.0-6.0) /HPF U Epithel Cells (Auto) (0-13.0) /HPF Urine Mucus /HPF Salicylates (2.8-20.0) mg/dL Urine Opiates Screen Urine Methadone Screen Acetaminophen (10.0-30.0) ug/mL Ur Barbiturates Screen Ur Phencyclidine Scrn Ur Amphetamines Screen U Benzodiazepines Scrn Urine Cocaine Screen U Marijuana (THC) Screen Drugs of Abuse Note Plasma/Serum Alcohol < 0.01 (0-0.07) gm% 08/18/16 08/18/16 Range/Units 02:10 02:10 WBC (4.5-11.0) K/mm3 RBC (3.65-5.03) M/mm3 Hgb (11.8-15.2) gm/dl Hct (35.5-45.6) % MCV (84-94) fl MCH (28-32) pg MCHC (32-34) % RDW (13.2-15.2) % Plt Count (140-440) K/mm3 Lymph % (Auto) (13.4-35.0) % [place] % (Auto) (0.0-7.3) % Eos % (Auto) (0.0-4.3) % Baso % (Auto) (0.0-1.8) % Lymph # (1.2-5.4) K/mm3 [place] # (0.0-0.8) K/mm3 Eos # (0.0-0.4) K/mm3 Baso # (0.0-0.1) K/mm3 Seg Neutrophils % (40.0-70.0) % Seg Neutrophils # (1.8-7.7) K/mm3 Sodium (137-145) mmol/L Potassium (3.6-5.0) mmol/L Chloride (98-107) mmol/L Carbon Dioxide (22-30) mmol/L Anion Gap mmol/L BUN (9-20) mg/dL Creatinine (0.8-1.5) mg/dL Estimated GFR ml/min BUN/Creatinine Ratio % Glucose (75-100) mg/dL Calcium (8.4-10.2) mg/dL Total Bilirubin (0.1-1.2) mg/dL AST (5-40) units/L ALT (7-56) units/L Alkaline Phosphatase (35-129) units/L Total Creatine Kinase (55-170) units/L Total Protein (6.3-8.2) g/dL Albumin (3.9-5) g/dL Albumin/Globulin Ratio % Urine Color (Yellow) Urine Turbidity (Clear) Urine pH (5.0-7.0) Ur Specific [place] (1.003-1.030) Urine Protein (Negative) mg/dL Urine Glucose (UA) (Negative) mg/dL Urine Ketones (Negative) mg/dL Urine Blood (Negative) Urine Nitrite (Negative) Urine Bilirubin (Negative) Urine Urobilinogen (<2.0) mg/dL Ur Leukocyte Esterase (Negative) Urine WBC (Auto) (0.0-6.0) /HPF Urine RBC (Auto) (0.0-6.0) /HPF U Epithel Cells (Auto) (0-13.0) /HPF Urine Mucus /HPF Salicylates < 0.3 L (2.8-20.0) mg/dL Urine Opiates Screen Urine Methadone Screen Acetaminophen < 15.0 (10.0-30.0) ug/mL Ur Barbiturates Screen Ur Phencyclidine Scrn Ur Amphetamines Screen U Benzodiazepines Scrn Urine Cocaine Screen U Marijuana (THC) Screen Drugs of Abuse Note Plasma/Serum Alcohol (0-0.07) gm% Critical care attestation.: If time is entered above; I have spent that time in minutes in the direct care of this critically ill patient, excluding procedure time. ED Disposition Clinical Impression: Mood disorder Disposition: DC/TX-65 PSY HOSP/PSY UNIT Is pt being admited?: No Does the pt Need Aspirin: No Condition: Good Referrals: PRIMARY CARE, [Primary Care Provider] - 3-5 Days
[2016-08-18 09:13] VITALS: BP 109/65
--- NOTE | 2016-08-18 12:58 | Consultation ---
History of Present Illness - Reason for Consult Reason for consult: auditory hallucinations Medications and Allergies Allergies Allergy/AdvReac Type Severity Reaction Status Date / Time quetiapine fumarate Allergy Unknown Verified 04/20/16 07:33 [From Seroquel] Home Medications Medication Instructions Recorded Confirmed Last Taken Type Benztropine [Cogentin] 1 mg PO QHS #30 tablet 06/27/16 08/18/[address] [Depakote Dr] 500 mg PO BID #60 tablet 06/27/16 08/18/16 Unknown Rx Haloperidol [Haldol] 5 mg PO HS #30 tablet 06/27/16 08/18/16 Unknown Rx risperiDONE [RisperDAL] 5 mg PO QHS #30 tablet 06/27/16 08/18/16 Unknown Rx Active Meds: Active Medications Benztropine Mesylate (Cogentin) 1 mg PO QHS ALDO Haloperidol (Haldol) 5 mg PO HS ALDO Lorazepam (Ativan) 2 mg IM Q4HR PRN PRN Reason: Agitation Risperidone (Risperdal) 3 mg PO QHS ALDO Risperidone (Risperdal) 2 mg PO QHS ALDO Mental Status Exam - Vital signs Last Vital Signs Temp 98.0 F 08/18/16 09:11 Pulse 61 08/18/16 09:11 Resp 20 08/18/16 09:11 BP 109/65 08/18/16 09:11 Pulse Ox 99 08/18/16 09:11 Results Result Diagrams: 08/18/16 01:52 08/18/16 01:52 Abnormal lab results 08/18/16 08/18/16 08/18/16 Range/Units 01:52 01:52 02:10 Lymph % (Auto) 35.8 H (13.4-35.0) % [place] % (Auto) 7.5 H (0.0-7.3) % Sodium 135 L (137-145) mmol/L Chloride 97.5 L (98-107) mmol/L BUN 7 L (9-20) mg/dL Total Creatine Kinase 311 H (55-170) units/L Salicylates (2.8-20.0) mg/dL Valproic Acid (50-100) ug/mL 08/18/16 08/18/16 Range/Units 02:10 02:10 Lymph % (Auto) (13.4-35.0) % Mower % (Auto) (0.0-7.3) % Sodium (137-145) mmol/L Chloride (98-107) mmol/L BUN (9-20) mg/dL Total Creatine Kinase (55-170) units/L Salicylates < 0.3 L (2.8-20.0) mg/dL Valproic Acid < 2.8 L (50-100) ug/mL All other labs normal. 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 On examination, he was sedate and mostly nonverbal. Patient was a poor historian. On review of clinical record, patient was reportedly having command auditory hallucinations and suicidal thoughts. Patient reports he's been noncompliant with his medications. Duration unknown PSYCHIATRIC REVIEW OF SYSTEMS: Substance: none noted Depression: Some sleep difficulties, and mood lability Daniella: Labile moods, flight of ideas and impulsive behaviors some grandiosity noted Psychosis: Disorganized and paranoid Anxiety/ OCD/ PTSD: Unable To assess Suicidality: denies SI Other Self-Injurious Behavior: none currently, no SIB noted recently Violent/ Aggressive Behavior: Recent aggression at the [facility] CURRENT MEDICATIONS: ( Psychiatric and Non-psychiatric ) Depakote 500 milligrams at bedtime Depakote 500 mg every morning Cogentin 1 mg at bedtime Risperidone 5 mg qhs Haloperidol 5 mg po qhs ALLERGIES: Seroquel PAST PSYCHIATRIC HISTORY: ( Prior Treatment, Precipitating Factors, Diagnosis, and Course of Treatment ) Inpatient: Multiple inpatient hospitalizations Outpatient: unknown Prior Suicide Attempts: Unknown Prior Self-Injurious Behaviors: Unknown PAST PSYCHIATRIC MEDICATION TRIALS: Unknown MEDICAL HISTORY: (Chronic and Acute Illnesses, Current Medical Treatment, Recent Hospitalizations) Denies Detoxification / Withdrawal: none noted MENTAL STATUS EXAM: General Appearance: Dressed in hospital gown Sensorium/Consciousness: alert and responding to external stimuli Eye Contact: limited Attitude / Behavior: uncooperative Psychomotor & Musculoskeletal Activity: PMR Mood: Unable to assess Affect: Flat Speech / Language: Mute Thought Processes: Disorganized Thought Content: Positive for SI, no HI Perception: Likely responding to internal stimuli, and reports age Orientation: person Judgment What would you do if you smelled smoke in a crowded movie theater?: poor/impulsive Insight: poor Intelligence Vocabulary, general fund of knowledge, educational level: Below Average Capacity of ADLs: Independent STRENGTHS: PSYCHOSOCIAL AND ENVIRONMENTAL STRESSORS: ADMITTING DIAGNOSES Psychiatric: Schizophrenia Evidence for the following: Medical: n/a INITIAL PLAN OF CARE AND TREATMENT GOALS: Start Depakote Start risperidone Start Cogentin Start Haldol Refer for inpatient psychiatric care
[2016-08-18] MEDS ORDERED: COGENTIN PO SCH (22:00)
[2016-08-18] MEDS ORDERED: RisperDAL PO SCH ×2 (22:00)
[2016-08-18] MEDS ORDERED: HALDOL PO SCH (22:00)
== END 2016-08-18 15:14 ==
LOC: EEVIPCON 23:50 → ED 23:50
DX: F39 Unspecified mood [affective] disorder (principal); I10 Essential (primary) hypertension; F41.9 Anxiety disorder, unspecified; F20.9 Schizophrenia, unspecified; F31.9 Bipolar disorder, unspecified; F17.200 Nicotine dependence, unspecified, uncomplicated; Z88.8 Allergy status to other drugs, medicaments and biological substances
CPT/HCPCS: 36415; 80053; 80164; 80307; 81001; 82550; 85025; 99285; G0480; 80320

== ENCOUNTER 2016-09-07 23:26 | Emergency (ER) | payer MEDICAID ==
[2016-09-07 23:45] VITALS: BP 111/76
[2016-09-08 00:09] LABS: Basophils % (Auto) 0.6 % (0.0-1.8); Eosinophils % (Auto) 3.5 % (0.0-4.3); Hematocrit 41.9 % (35.5-45.6); Hemoglobin 14.2 gm/dl (11.8-15.2); Mean Corpuscular HGB Conc 34 % (32-34); Mean Corpuscular Hemoglobin 31 pg (28-32); Mean Corpuscular Volume 92 fl (84-94); Platelet Count 223 K/mm3 (140-440); Red Blood Count 4.57 M/mm3 (3.65-5.03); Red Cell Distribution Width 15.6 % (13.2-15.2)
[2016-09-08 00:22] LABS: Anion Gap 21 mmol/L; BUN/Creatinine Ratio 5.55; Blood Urea Nitrogen 5 mg/dL (9-20); Calcium 9.1 mg/dL (8.4-10.2); Carbon Dioxide 24 mmol/L (22-30); Chloride 98.5 mmol/L (98-107); Glucose 85 mg/dL (75-100); Potassium 4.1 mmol/L (3.6-5.0); Sodium 139 mmol/L (137-145)
[2016-09-08 02:16] LABS: Urine Drugs of Abuse Note Disclamer
[2016-09-08 02:28] LABS: Bilirubin,Urine NEG (Negative); Blood,Urine NEG (Negative); Ketones,Urine NEG (Negative); Leukocyte Esterase,Urine TR (Negative); Nitrite,Urine NEG (Negative); Protein,Urine <15 mg/dL mg/dL (Negative); Urobilinogen,Urine < 2.0 mg/dL (<2.0)
--- NOTE | 2016-09-09 09:50 | ED Elopement Review ---
ED Pt Elopement review - Results review Lab results: Laboratory Tests 09/07/16 09/07/16 09/07/16 23:48 23:48 23:48 WBC 6.0 RBC 4.57 Hgb 14.2 Hct 41.9 MCV 92 MCH 31 MCHC 34 RDW 15.6 H Plt Count 223 Lymph % (Auto) 23.4 [place] % (Auto) 7.9 H Eos % (Auto) 3.5 Baso % (Auto) 0.6 Lymph # 1.4 [place] # 0.5 Eos # 0.2 Baso # 0.0 Seg Neutrophils % 64.6 Seg Neutrophils # 3.9 Sodium 139 Potassium 4.1 Chloride 98.5 Carbon Dioxide 24 Anion Gap 21 BUN 5 L Creatinine 0.9 Estimated GFR > 60 BUN/Creatinine Ratio 5.55 Glucose 85 Calcium 9.1 Urine Color Urine Turbidity Urine pH Ur Specific [place] Urine Protein Urine Glucose (UA) Urine Ketones Urine Blood Urine Nitrite Urine Bilirubin Urine Urobilinogen Ur Leukocyte Esterase Urine WBC (Auto) Urine RBC (Auto) U Epithel Cells (Auto) Urine Opiates Screen Urine Methadone Screen Ur Barbiturates Screen Ur Phencyclidine Scrn Ur Amphetamines Screen U Benzodiazepines Scrn Urine Cocaine Screen U Marijuana (THC) Screen Drugs of Abuse Note Plasma/Serum Alcohol < 0.01 09/07/16 09/07/16 Unknown Unknown WBC RBC Hgb Hct MCV MCH MCHC RDW Plt Count Lymph % (Auto) [place] % (Auto) Eos % (Auto) Baso % (Auto) Lymph # [place] # Eos # Baso # Seg Neutrophils % Seg Neutrophils # Sodium Potassium Chloride Carbon Dioxide Anion Gap BUN Creatinine Estimated GFR BUN/Creatinine Ratio Glucose Calcium Urine Color Straw Urine Turbidity Clear Urine pH 6.0 Ur Specific [place] 1.005 Urine Protein <15 mg/dl Urine Glucose (UA) Neg Urine Ketones Neg Urine Blood Neg Urine Nitrite Neg Urine Bilirubin Neg Urine Urobilinogen < 2.0 Ur Leukocyte Esterase Tr Urine WBC (Auto) 2.0 Urine RBC (Auto) 1.0 U Epithel Cells (Auto) 1.0 Urine Opiates Screen Presumptive negative Urine Methadone Screen Presumptive negative Ur Barbiturates Screen Presumptive negative Ur Phencyclidine Scrn Presumptive negative Ur Amphetamines Screen Presumptive negative U Benzodiazepines Scrn Presumptive negative Urine Cocaine Screen Presumptive negative U Marijuana (THC) Screen Presumptive negative Drugs of Abuse Note Disclamer Plasma/Serum Alcohol - Call Back decision Pt Call Back Decision: No action required
== END 2016-09-08 | disposition left against medical advice (07) ==
LOC: ED 23:26
DX: R69 Illness, unspecified (principal); Z53.21 Procedure and treatment not carried out due to patient leaving prior to being seen by health care provider
CPT/HCPCS: 36415; 80048; 80307; 81001; 85025; G0480; 80320

== ENCOUNTER 2016-09-08 15:07 | Emergency (ER) | payer MEDICAID | END 2016-09-08 20:53 | disposition left against medical advice (07) | LOC: ED 15:07 | DX: R45.851 Suicidal ideations (principal); Z53.21 Procedure and treatment not carried out due to patient leaving prior to being seen by health care provider ==

== ENCOUNTER 2016-09-08 21:16 | Emergency (ER) | payer MEDICAID ==
[2016-09-09 01:48] VITALS: BP 112/79
== END 2016-09-09 05:33 | disposition left against medical advice (07) ==
LOC: ED 21:16
DX: Z00.8 Encounter for other general examination (principal); Z53.21 Procedure and treatment not carried out due to patient leaving prior to being seen by health care provider

== ENCOUNTER 2016-10-09 17:58 | Emergency (ER) | payer MEDICAID ==
--- NOTE | 2016-10-09 19:06 | Emergency Department Report ---
ED Psych HPI - General Chief Complaint: Psych Stated Complaint: MH EVAL/BIPOLAR Time Seen by Provider: 10/09/16 18:29 Source: patient Mode of arrival: Ambulatory - History of Present Illness MD Complaint: feels depressed, altered mental status -: Gradual Associated Psychiatric Symptoms: depression, racing thoughts, auditory hallucinations, delusions History of same: Yes Quality: constant Improves With: none Worsens With: none Associated Symptoms: insomnia. denies: confusion, headache, shortness of breath , nausea, vomiting, syncope Treatments Prior to Arrival: none - Related Data Previous Rx's Medication Instructions Recorded Last Taken Type Benztropine [Cogentin] 1 mg PO QHS #30 tablet 06/27/[address] [Porsha Mclean] 500 mg PO BID #60 tablet 06/27/16 Unknown Rx Haloperidol [Haldol] 5 mg PO HS #30 tablet 06/27/16 Unknown Rx risperiDONE [RisperDAL] 5 mg PO QHS #30 tablet 06/27/16 Unknown Rx Allergies Allergy/AdvReac Type Severity Reaction Status Date / Time quetiapine fumarate Allergy Unknown Verified 04/20/16 07:33 [From Seroquel] ED Review of Systems ROS: Stated complaint: MH EVAL/BIPOLAR Other details as noted in HPI Comment: All other systems reviewed and negative ED Past Medical Hx - Past Medical History Previous Medical History?: Yes Hx Hypertension: Yes Hx Psychiatric Treatment: Yes (anxiety, schizophrenia, bipolar) - Surgical History Past Surgical History?: No - Social History Smoking Status: Current Every Day Smoker Substance Use Type: Alcohol - Medications Home Medications: Home Medications Medication Instructions Recorded Confirmed Last Taken Type Benztropine [Cogentin] 1 mg PO QHS #30 tablet 06/27/16 08/18/[address] [Porsha Mclean] 500 mg PO BID #60 tablet 06/27/16 08/18/16 Unknown Rx Haloperidol [Haldol] 5 mg PO HS #30 tablet 06/27/16 08/18/16 Unknown Rx risperiDONE [RisperDAL] 5 mg PO QHS #30 tablet 06/27/16 08/18/16 Unknown Rx ED Physical Exam - General Limitations: No Limitations General appearance: alert, in no apparent distress - Head Head exam: Present: atraumatic, normocephalic - Eye Eye exam: Present: normal appearance, PERRL, EOMI - ENT ENT exam: Present: mucous membranes moist - Neck Neck exam: Present: normal inspection - Respiratory Respiratory exam: Present: normal lung sounds bilaterally. Absent: respiratory distress - Cardiovascular Cardiovascular Exam: Present: regular rate, normal rhythm. Absent: systolic murmur, diastolic murmur, rubs, gallop - GI/Abdominal GI/Abdominal exam: Present: soft, normal bowel sounds - Rectal Rectal exam: Present: deferred - Extremities Exam Extremities exam: Present: normal inspection - Back Exam Back exam: Present: normal inspection - Neurological Exam Neurological exam: Present: alert, oriented X3 - Psychiatric Psychiatric exam: Present: depressed. Absent: anxious, flat affect, manic, homicidal ideation - Skin Skin exam: Present: warm, dry, intact, normal color. Absent: rash ED Course Vital Signs 10/09/16 10/09/16 18:11 19:23 Temperature 98.4 F 98.2 F Pulse Rate 86 90 Respiratory 16 18 Rate Blood Pressure 115/74 Blood Pressure 112/74 [Right] O2 Sat by Pulse 98 99 Oximetry ED Medical Decision Making - Lab Data Result diagrams: 10/09/16 18:53 10/09/16 18:53 - Medical Decision Making waiting for psych placement , labs negative , will need transfer for acute psychosis, he is stable and with no complaints at this time Critical care attestation.: If time is entered above; I have spent that time in minutes in the direct care of this critically ill patient, excluding procedure time. ED Disposition Clinical Impression: Psychosis, Bipolar 1 disorder Disposition: DC/TX-65 PSY HOSP/PSY UNIT Is pt being admited?: No Does the pt Need Aspirin: No Condition: Good Referrals: PRIMARY CARE, [Primary Care Provider] - 3-5 Days Time of Disposition: 20:03
[2016-10-09 19:20] LABS: Basophils % (Auto) 0.6 % (0.0-1.8); Eosinophils % (Auto) 3.8 % (0.0-4.3); Hematocrit 40.2 % (35.5-45.6); Hemoglobin 13.4 gm/dl (11.8-15.2); Mean Corpuscular HGB Conc 33 % (32-34); Mean Corpuscular Hemoglobin 31 pg (28-32); Mean Corpuscular Volume 93 fl (84-94); Platelet Count 244 K/mm3 (140-440); Red Blood Count 4.34 M/mm3 (3.65-5.03); Red Cell Distribution Width 15.4 % (13.2-15.2); White Blood Count 5.4 K/mm3 (4.5-11.0)
[2016-10-09 19:22] LABS: Anion Gap 16 mmol/L; Blood Urea Nitrogen 8 mg/dL (9-20); Carbon Dioxide 29 mmol/L (22-30); Glucose 98 mg/dL (75-100); Potassium 4.5 mmol/L (3.6-5.0); Sodium 142 mmol/L (137-145)
[2016-10-09 19:26] LABS: Alanine Aminotransferase 7 units/L (7-56); Albumin 3.8 g/dL (3.9-5); Albumin/Globulin Ratio 1.1 %; Alkaline Phosphatase 74 units/L (35-129); Anion Gap 17 mmol/L; Bilirubin,Total < 0.20 mg/dL (0.1-1.2); Blood Urea Nitrogen 8 mg/dL (9-20); Calcium 9.1 mg/dL (8.4-10.2); Carbon Dioxide 28 mmol/L (22-30); Glucose 97 mg/dL (75-100); Potassium 4.7 mmol/L (3.6-5.0); Sodium 142 mmol/L (137-145); Total Protein 7.2 g/dL (6.3-8.2)
[2016-10-09 19:45] VITALS: BP 112/74
--- NOTE | 2016-10-09 20:18 | Emergency Department Report ---
ED Psych HPI - General Chief Complaint: Psych Stated Complaint: MH EVAL/BIPOLAR Time Seen by Provider: 10/09/16 18:29 Source: patient Mode of arrival: Ambulatory - History of Present Illness Quality: constant Improves With: none Worsens With: none Associated Symptoms: insomnia. denies: confusion, headache, shortness of breath , nausea, vomiting, syncope Treatments Prior to Arrival: none - Related Data Previous Rx's Medication Instructions Recorded Last Taken Type Benztropine [Cogentin] 1 mg PO QHS #30 tablet 06/27/16 Unknown Rx Divalproex [Porsha Mclean] 500 mg PO BID #60 tablet 06/27/16 Unknown Rx Haloperidol [Haldol] 5 mg PO HS #30 tablet 06/27/16 Unknown Rx risperiDONE [RisperDAL] 5 mg PO QHS #30 tablet 06/27/16 Unknown Rx Allergies Allergy/AdvReac Type Severity Reaction Status Date / Time quetiapine fumarate Allergy Unknown Verified 04/20/16 07:33 [From Seroquel] ED Review of Systems ROS: Stated complaint: MH EVAL/BIPOLAR Other details as noted in HPI ED Past Medical Hx - Past Medical History Previous Medical History?: Yes Hx Hypertension: Yes Hx Psychiatric Treatment: Yes (anxiety, schizophrenia, bipolar) - Surgical History Past Surgical History?: No - Social History Smoking Status: Current Every Day Smoker Substance Use Type: Alcohol - Medications Home Medications: Home Medications Medication Instructions Recorded Confirmed Last Taken Type Benztropine [Cogentin] 1 mg PO QHS #30 tablet 06/27/16 08/18/16 Unknown Rx Divalproex [Porsha Mclean] 500 mg PO BID #60 tablet 06/27/16 08/18/16 Unknown Rx Haloperidol [Haldol] 5 mg PO HS #30 tablet 06/27/16 08/18/16 Unknown Rx risperiDONE [RisperDAL] 5 mg PO QHS #30 tablet 06/27/16 08/18/16 Unknown Rx ED Physical Exam - General Limitations: No Limitations General appearance: alert, in no apparent distress ED Course Vital Signs 10/09/16 10/09/16 18:11 19:23 Temperature 98.4 F 98.2 F Pulse Rate 86 90 Respiratory 16 18 Rate Blood Pressure 115/74 Blood Pressure 112/74 [Right] O2 Sat by Pulse 98 99 Oximetry ED Medical Decision Making - Lab Data Result diagrams: 10/09/16 18:53 10/09/16 18:53 Critical care attestation.: If time is entered above; I have spent that time in minutes in the direct care of this critically ill patient, excluding procedure time. ED Disposition Clinical Impression: Bipolar 1 disorder Disposition: DC-01 TO HOME OR SELFCARE Is pt being admited?: No Does the pt Need Aspirin: No Condition: Good Instructions: Bipolar Disorder (ED) Referrals: PRIMARY CARE, [Primary Care Provider] - 3-5 Days Time of Disposition: 20:17
== END 2016-10-09 20:28 | disposition home or self-care (01) ==
LOC: ED 17:58
DX: F31.9 Bipolar disorder, unspecified (principal); I10 Essential (primary) hypertension; F20.9 Schizophrenia, unspecified; F17.200 Nicotine dependence, unspecified, uncomplicated
CPT/HCPCS: 36415; 80048; 80053; 85025; 99283; G0480; 80320

== ENCOUNTER 2018-03-05 01:15 | Emergency (ER) | payer MEDICAID | END 2018-03-05 01:50 | disposition left against medical advice (07) | LOC: ED 01:15 | DX: R51 Headache (principal); Z53.21 Procedure and treatment not carried out due to patient leaving prior to being seen by health care provider ==

== ENCOUNTER 2018-03-07 15:05 | Emergency (ER) | payer MEDICAID | END 2018-03-07 15:10 | disposition left against medical advice (07) | LOC: ED 15:05 | DX: Z00.8 Encounter for other general examination (principal); Z53.21 Procedure and treatment not carried out due to patient leaving prior to being seen by health care provider ==

== ENCOUNTER 2018-03-09 01:11 | Emergency (ER) | payer MEDICAID ==
[2018-03-09 02:05] LABS: Basophils # (Auto) 0.1 K/mm3 (0.0-0.1); Basophils % (Auto) 0.8 % (0.0-1.8); Eosinophils # (Auto) 0.2 K/mm3 (0.0-0.4); Eosinophils % (Auto) 1.8 % (0.0-4.3); Hematocrit 39.8 % (35.5-45.6); Hemoglobin 13.6 gm/dl (11.8-15.2); Lymphocytes # (Auto) 2.3 K/mm3 (1.2-5.4); Lymphocytes % (Auto) 25.7 % (13.4-35.0); Mean Corpuscular HGB Conc 34 % (32-34); Mean Corpuscular Volume 95 fl (84-94); Monocytes # (Auto) 0.7 K/mm3 (0.0-0.8); Monocytes % (Auto) 8.4 % (0.0-7.3); Platelet Count 216 K/mm3 (140-440); Red Blood Count 4.17 M/mm3 (3.65-5.03); Red Cell Distribution Width 14.6 % (13.2-15.2)
[2018-03-09 02:32] LABS: BUN/Creatinine Ratio 8; Blood Urea Nitrogen 8 mg/dL (9-20); Calcium 8.6 mg/dL (8.4-10.2); Hemolysis Index 13
--- NOTE | 2018-03-09 03:22 | Emergency Department Report ---
ED Psych HPI - General Chief Complaint: Psych Stated Complaint: MH Time Seen by Provider: 03/09/18 01:40 Source: patient, police Mode of arrival: Ambulatory - History of Present Illness Initial Comments: Patient is a 32-year-old -[place] male who has a history of schizoph dario and bipolar disorder who is presenting with auditory hallucinations. Patient states he is here worsens telling him to kill himself. Patient is trying to resist. Patient denies any alcohol or drug abuse discharge. Patient states to me that "flipping out [place] monitors on the other side were". Patient denies any homicidal ideations. - Related Data Home Medications Medication Instructions Recorded Confirmed Last Taken FLUoxetine HCL [Prozac] 20 mg PO BID 02/17/18 03/09/18 Unknown Sertraline HCl [Zoloft] 50 mg PO QHS 02/17/18 03/09/18 Unknown Previous Rx's Medication Instructions Recorded Last Taken Type Benztropine [Cogentin] 1 mg PO QHS #30 tablet 06/27/16 Unknown Rx Divalproex [Porsha Mclean] 500 mg PO BID #60 tablet 06/27/16 Unknown Rx Haloperidol [Haldol] 5 mg PO HS #30 tablet 06/27/16 Unknown Rx risperiDONE [RisperDAL] 5 mg PO QHS #30 tablet 06/27/16 Unknown Rx Allergies Allergy/AdvReac Type Severity Reaction Status Date / Time quetiapine fumarate Allergy Unknown Verified 02/11/18 12:11 [From Seroquel] ED Review of Systems ROS: Stated complaint: MH Other details as noted in HPI Comment: All other systems reviewed and negative ED Past Medical Hx - Past Medical History Previous Medical History?: Yes Hx Hypertension: Yes Hx Seizures: Yes Hx Psychiatric Treatment: Yes (anxiety, schizophrenia, bipolar) Hx Asthma: Yes - Surgical History Past Surgical History?: No - Social History Smoking Status: Never Smoker Substance Use Type: Alcohol, Marijuana - Medications Home Medications: Home Medications Medication Instructions Recorded Confirmed Last Taken Type Benztropine [Cogentin] 1 mg PO QHS #30 tablet 06/27/16 03/09/18 Unknown Rx Divalproex [Porsha Mclean] 500 mg PO BID #60 tablet 06/27/16 03/09/18 Unknown Rx Haloperidol [Haldol] 5 mg PO HS #30 tablet 06/27/16 03/09/18 Unknown Rx risperiDONE [RisperDAL] 5 mg PO QHS #30 tablet 06/27/16 03/09/18 Unknown Rx FLUoxetine HCL [Prozac] 20 mg PO BID 02/17/18 03/09/18 Unknown History Sertraline HCl [Zoloft] 50 mg PO QHS 02/17/18 03/09/18 Unknown History ED Physical Exam - General Limitations: No Limitations General appearance: alert, in no apparent distress - Head Head exam: Present: atraumatic, normocephalic - Eye Eye exam: Present: normal appearance - ENT ENT exam: Present: mucous membranes moist - Neck Neck exam: Present: normal inspection - Respiratory Respiratory exam: Present: normal lung sounds bilaterally. Absent: respiratory distress, wheezes, rales, rhonchi - Cardiovascular Cardiovascular Exam: Present: regular rate, normal rhythm. Absent: systolic murmur, diastolic murmur, rubs, gallop - GI/Abdominal GI/Abdominal exam: Present: soft, normal bowel sounds. Absent: distended, tenderness, guarding, rebound - Rectal Rectal exam: Present: deferred - Extremities Exam Extremities exam: Present: normal inspection - Back Exam Back exam: Present: normal inspection - Neurological Exam Neurological exam: Present: alert, oriented X3 - Psychiatric Psychiatric exam: Present: normal affect, normal mood - Skin Skin exam: Present: warm, dry, intact, normal color. Absent: rash ED Medical Decision Making - Lab Data Result diagrams: 03/09/18 01:48 03/09/18 01:48 Lab Results 03/09/18 03/09/18 03/09/18 Range/Units 01:48 01:48 01:48 WBC 8.9 (4.5-11.0) K/mm3 RBC 4.17 (3.65-5.03) M/mm3 Hgb 13.6 (11.8-15.2) gm/dl Hct 39.8 (35.5-45.6) % MCV 95 H (84-94) fl MCH 33 H (28-32) pg MCHC 34 (32-34) % RDW 14.6 (13.2-15.2) % Plt Count 216 (140-440) K/mm3 Lymph % (Auto) 25.7 (13.4-35.0) % [place] % (Auto) 8.4 H (0.0-7.3) % Eos % (Auto) 1.8 (0.0-4.3) % Baso % (Auto) 0.8 (0.0-1.8) % Lymph # 2.3 (1.2-5.4) K/mm3 [place] # 0.7 (0.0-0.8) K/mm3 Eos # 0.2 (0.0-0.4) K/mm3 Baso # 0.1 (0.0-0.1) K/mm3 Seg Neutrophils % 63.3 (40.0-70.0) % Seg Neutrophils # 5.6 (1.8-7.7) K/mm3 Sodium 135 L (137-145) mmol/L Potassium 3.3 L (3.6-5.0) mmol/L Chloride 97.3 L (98-107) mmol/L Carbon Dioxide 25 (22-30) mmol/L Anion Gap 16 mmol/L BUN 8 L (9-20) mg/dL Creatinine 1.0 (0.8-1.5) mg/dL Estimated GFR > 60 ml/min BUN/Creatinine Ratio 8 % Glucose 89 (75-100) mg/dL Calcium 8.6 (8.4-10.2) mg/dL Acetaminophen < 5.0 L (10.0-30.0) ug/mL - Medical Decision Making Patient is medically cleared at this time Critical care attestation.: If time is entered above; I have spent that time in minutes in the direct care of this critically ill patient, excluding procedure time. ED Disposition Clinical Impression: Suicidal ideations, Encounter for psychiatric assessment Disposition: DC/TX-65 PSY HOSP/PSY UNIT Is pt being admited?: No Does the pt Need Aspirin: No Condition: Stable Referrals: PRIMARY CARE, [Primary Care Provider] - 3-5 Days
[2018-03-09 03:24] LABS: Amphetamine Screen,Urine PRESUMPTIVE NEGATIVE; Benzodiazepines Screen,Urine PRESUMPTIVE NEGATIVE; Cannabinoid Screen,Urine PRESUMPTIVE NEGATIVE; Cocaine Screen,Urine PRESUMPTIVE NEGATIVE; Methadone Screen,Urine PRESUMPTIVE NEGATIVE; Opiate Screen,Urine PRESUMPTIVE NEGATIVE
[2018-03-09 03:33] LABS: Bacteria,Urine 1+ /HPF (Negative); Bilirubin,Urine NEG (Negative); Blood,Urine NEG (Negative); Color,Urine Straw (Yellow); Protein,Urine <15 mg/dL mg/dL (Negative); RBC,Urine < 1.0 /HPF (0.0-6.0); Urobilinogen,Urine < 2.0 mg/dL (<2.0)
--- NOTE | 2018-03-09 12:27 | Consultation ---
History of Present Illness - Reason for Consult Consult date: 03/09/18 Reason for consult: Mental Health Evaluation Requesting physician: ZOHREH RODRIGUEZ - Chief Complaint Chief complaint: "I don't want to talk" - History of Present Psychiatric Illness 32 y.o. AA male who presented to the ER for AH's. Today the patient refused to talk during the assessment. He stated, 'Come back tomorrow." Medications and Allergies Allergies Allergy/AdvReac Type Severity Reaction Status Date / Time quetiapine fumarate Allergy Unknown Verified 02/11/18 12:11 [From Seroquel] Home Medications Medication Instructions Recorded Confirmed Last Taken Type Benztropine [Cogentin] 1 mg PO QHS #30 tablet 06/27/16 03/09/[address] [Depakote Dr] 500 mg PO BID #60 tablet 06/27/16 03/09/18 Unknown Rx Haloperidol [Haldol] 5 mg PO HS #30 tablet 06/27/16 03/09/18 Unknown Rx risperiDONE [RisperDAL] 5 mg PO QHS #30 tablet 06/27/16 03/09/18 Unknown Rx FLUoxetine HCL [Prozac] 20 mg PO BID 02/17/18 03/09/18 Unknown History Sertraline HCl [Zoloft] 50 mg PO QHS 02/17/18 03/09/18 Unknown History Past psychiatric history - Past Medical History Past Medical History: other (Unable to obtain) Past Surgical History: Other (Unabel to obtain) - past Psychiatric treatment and history psychiatric treatment history: Unable to obtain a psy hx and fam psy hx. - Social History Social history: other (Unable to obtain) Mental Status Exam - Vital signs Last Vital Signs Temp 97.8 F 03/09/18 08:08 Pulse 86 03/09/18 08:08 Resp 16 03/09/18 08:08 BP 121/72 03/09/18 08:08 Pulse Ox 99 03/09/18 08:08 - Exam Narrative exam: Unable to complete the MSE because the patient refused to cooperate. Results Result Diagrams: 03/09/18 01:48 03/09/18 01:48 Abnormal lab results 03/09/18 03/09/18 03/09/18 Range/Units 01:48 01:48 01:48 MCV 95 H (84-94) fl MCH 33 H (28-32) pg [place] % (Auto) 8.4 H (0.0-7.3) % Sodium 135 L (137-145) mmol/L Potassium 3.3 L (3.6-5.0) mmol/L Chloride 97.3 L (98-107) mmol/L BUN 8 L (9-20) mg/dL Urine WBC (Auto) (0.0-6.0) /HPF Acetaminophen < 5.0 L (10.0-30.0) ug/mL 03/09/18 Range/Units 02:50 MCV (84-94) fl MCH (28-32) pg [place] % (Auto) (0.0-7.3) % Sodium (137-145) mmol/L Potassium (3.6-5.0) mmol/L Chloride (98-107) mmol/L BUN (9-20) mg/dL Urine WBC (Auto) 7.0 H (0.0-6.0) /HPF Acetaminophen (10.0-30.0) ug/mL All other labs normal. Assessment and Plan Assessment and plan: Impression: Today the patient refused to talk during the assessment. Recommendation/Plan: Continue 1013 and reassess the patient in 24 hours. Dispo: The patient was referred to inpatient psy services. Will staff with Dr Lawanda Downing.
[2018-03-09 21:00] VITALS: BP 104/68
== END 2018-03-10 01:00 ==
LOC: ED 01:11
DX: R44.0 Auditory hallucinations (principal); R45.851 Suicidal ideations; I10 Essential (primary) hypertension; F20.9 Schizophrenia, unspecified; F31.9 Bipolar disorder, unspecified; J45.909 Unspecified asthma, uncomplicated; F12.10 Cannabis abuse, uncomplicated; Z79.899 Other long term (current) drug therapy; Z88.8 Allergy status to other drugs, medicaments and biological substances
CPT/HCPCS: 36415; 80048; 80307; 81001; 85025; 99285; G0480; 80320

== ENCOUNTER 2018-05-07 01:57 | Emergency (ER) | payer MEDICAID ==
--- NOTE | 2018-05-07 02:08 | Emergency Department Report ---
Chief Complaint: Medical Clearance Stated Complaint: HIV TEST Time Seen by Provider: 05/07/18 02:06 - HPI History of Present Illness: 33-year-old Portuguese male with a past medical history of mental health issues. Comes in requesting for HIV test. When I instructed the patient that he will need to follow-up with health Department then he asked them the test and for diabetes. - Exam Physical Exam: Patient is alert and oriented with normal gait no acute distress MSE screening note: Focused history and physical exam performed. Due to findings the following was ordered: Patient be referred to health department for HIV and STD checks and to community clinic for diabetes screening. ED Disposition for MSE Condition: Stable
== END 2018-05-07 02:10 | disposition left against medical advice (07) ==
LOC: ED 01:57
DX: Z11.3 Encounter for screening for infections with a predominantly sexual mode of transmission (principal); Z53.21 Procedure and treatment not carried out due to patient leaving prior to being seen by health care provider

== ENCOUNTER 2018-06-27 07:21 | Emergency (ER) | payer MEDICAID ==
[2018-06-27 07:55] LABS: Basophils % (Auto) 0.9 % (0.0-1.8); Eosinophils # (Auto) 0.1 K/mm3 (0.0-0.4); Eosinophils % (Auto) 2.6 % (0.0-4.3); Hematocrit 42.7 % (35.5-45.6); Hemoglobin 14.5 gm/dl (11.8-15.2); Lymphocytes # (Auto) 2.2 K/mm3 (1.2-5.4); Lymphocytes % (Auto) 43.8 % (13.4-35.0); Mean Corpuscular HGB Conc 34 % (32-34); Mean Corpuscular Volume 92 fl (84-94); Monocytes # (Auto) 0.4 K/mm3 (0.0-0.8); Monocytes % (Auto) 7.8 % (0.0-7.3); Platelet Count 216 K/mm3 (140-440); Red Blood Count 4.63 M/mm3 (3.65-5.03)
[2018-06-27 08:47] LABS: Bilirubin,Urine NEG (Negative); Blood,Urine NEG (Negative); Color,Urine Yellow (Yellow); Mucus,Urine FEW /HPF; Protein,Urine <15 mg/dL mg/dL (Negative)
[2018-06-27 08:53] LABS: Amphetamine Screen,Urine PRESUMPTIVE NEGATIVE; Benzodiazepines Screen,Urine PRESUMPTIVE NEGATIVE; Cannabinoid Screen,Urine PRESUMPTIVE NEGATIVE; Cocaine Screen,Urine PRESUMPTIVE NEGATIVE; Methadone Screen,Urine PRESUMPTIVE NEGATIVE; Opiate Screen,Urine PRESUMPTIVE NEGATIVE
[2018-06-27 08:57] LABS: BUN/Creatinine Ratio 10; Blood Urea Nitrogen 9 mg/dL (9-20); Calcium 9.1 mg/dL (8.4-10.2); Hemolysis Index 13
--- NOTE | 2018-06-27 09:55 | Emergency Department Report ---
ED Psych HPI - General Chief Complaint: Psych Stated Complaint: NOT FEELING WELL Time Seen by Provider: 06/27/18 08:57 Source: patient Mode of arrival: Ambulatory - History of Present Illness Initial Comments: Patient is 33 years old male with history of schizophrenia. Patient presented to the ER stating that he is hearing voices asking him to blow his head. Patient denied any homicidal ideation. Patient stated that he had history of suicidal attempt before but he does not want to elaborate. MD Complaint: suicidal ideation, feels depressed Associated Psychiatric Symptoms: depression, suicidal ideation, racing thoughts, auditory hallucinations Quality: constant Associated Symptoms: denies other symptoms Treatments Prior to Arrival: none If Self Harm: admits thoughts of, has plan, self-inflicted trauma - Related Data Home Medications Medication Instructions Recorded Confirmed Last Taken FLUoxetine HCL [Prozac] 20 mg PO BID 02/17/18 03/09/18 Unknown Sertraline HCl [Zoloft] 50 mg PO QHS 02/17/18 03/09/18 Unknown Previous Rx's Medication Instructions Recorded Last Taken Type Benztropine [Cogentin] 1 mg PO QHS #30 tablet 06/27/[address] [Depakote Dr] 500 mg PO BID #60 tablet 06/27/16 Unknown Rx Haloperidol [Haldol] 5 mg PO HS #30 tablet 06/27/16 Unknown Rx risperiDONE [RisperDAL] 5 mg PO QHS #30 tablet 06/27/16 Unknown Rx Allergies Allergy/AdvReac Type Severity Reaction Status Date / Time quetiapine fumarate Allergy Unknown Verified 06/27/18 08:46 [From Seroquel] ED Review of Systems ROS: Stated complaint: NOT FEELING WELL Other details as noted in HPI Comment: All other systems reviewed and negative Constitutional: denies: chills, fever Respiratory: denies: shortness of breath, SOB with exertion, wheezing Cardiovascular: denies: chest pain, palpitations, dyspnea on exertion Gastrointestinal: denies: abdominal pain, nausea, vomiting, diarrhea, constipation, hematemesis, melena, hematochezia Musculoskeletal: denies: back pain Neurological: denies: headache, weakness, numbness, paresthesias, confusion, abnormal gait Psychiatric: depression, auditory hallucinations, suicidal thoughts. denies: visual hallucinations, homicidal thoughts ED Past Medical Hx - Past Medical History Previous Medical History?: Yes Hx Hypertension: Yes Hx Seizures: Yes Hx Psychiatric Treatment: Yes (anxiety, schizophrenia, bipolar) Hx Asthma: Yes - Social History Smoking Status: Current Every Day Smoker Substance Use Type: Alcohol, Marijuana - Medications Home Medications: Home Medications Medication Instructions Recorded Confirmed Last Taken Type Benztropine [Cogentin] 1 mg PO QHS #30 tablet 06/27/16 03/09/[address] [Depakote Dr] 500 mg PO BID #60 tablet 06/27/16 03/09/18 Unknown Rx Haloperidol [Haldol] 5 mg PO HS #30 tablet 06/27/16 03/09/18 Unknown Rx risperiDONE [RisperDAL] 5 mg PO QHS #30 tablet 06/27/16 03/09/18 Unknown Rx FLUoxetine HCL [Prozac] 20 mg PO BID 02/17/18 03/09/18 Unknown History Sertraline HCl [Zoloft] 50 mg PO QHS 02/17/18 03/09/18 Unknown History ED Physical Exam - General Limitations: No Limitations General appearance: alert, in no apparent distress - Head Head exam: Present: atraumatic, normocephalic, normal inspection - Eye Eye exam: Present: normal appearance, PERRL - ENT ENT exam: Present: normal exam, normal orophraynx, mucous membranes moist - Neck Neck exam: Present: normal inspection, full ROM. Absent: tenderness, meningism us, lymphadenopathy, thyromegaly - Respiratory Respiratory exam: Present: normal lung sounds bilaterally - Cardiovascular Cardiovascular Exam: Present: regular rate, normal rhythm, normal heart sounds - GI/Abdominal GI/Abdominal exam: Present: soft, normal bowel sounds. Absent: distended, tenderness, guarding, rebound, rigid - Extremities Exam Extremities exam: Present: normal inspection, full ROM, normal capillary refill - Back Exam Back exam: Present: normal inspection, full ROM. Absent: CVA tenderness (R), CVA tenderness (L), muscle spasm, paraspinal tenderness, vertebral tenderness - Neurological Exam Neurological exam: Present: alert, oriented X3, CN II-XII intact, normal gait - Psychiatric Psychiatric exam: Present: depressed, suicidal ideation. Absent: agitated, anxious, flat affect, manic, homicidal ideation - Skin Skin exam: Present: warm, dry, intact ED Course Vital Signs 06/27/18 07:27 Temperature 98 F Pulse Rate 81 Respiratory 18 Rate Blood Pressure 121/73 O2 Sat by Pulse 100 Oximetry ED Medical Decision Making - Lab Data Result diagrams: 06/27/18 07:38 06/27/18 07:38 Critical care attestation.: If time is entered above; I have spent that time in minutes in the direct care of this critically ill patient, excluding procedure time. ED Disposition Clinical Impression: Suicidal ideations, Acute psychosis Disposition: DC/TX-65 PSY HOSP/PSY UNIT Is pt being admited?: No Condition: Stable Referrals: PRIMARY CARE, [Primary Care Provider] - 3-5 Days
[2018-06-27 19:49] VITALS: BP 108/55
== END 2018-06-27 20:09 ==
LOC: ED 07:21
DX: F23 Brief psychotic disorder (principal); I10 Essential (primary) hypertension; F31.9 Bipolar disorder, unspecified; J45.909 Unspecified asthma, uncomplicated; F41.9 Anxiety disorder, unspecified; F17.200 Nicotine dependence, unspecified, uncomplicated; F12.10 Cannabis abuse, uncomplicated; Z88.8 Allergy status to other drugs, medicaments and biological substances
CPT/HCPCS: 36415; 80048; 80164; 80307; 81001; 85025; 99285; G0480; 80320

== ENCOUNTER 2018-10-21 21:58 | Emergency (ER) | payer MEDICAID ==
--- NOTE | 2018-10-21 22:07 | Emergency Department Report ---
ED Psych HPI - General Stated Complaint: SUICIDAL Time Seen by Provider: 10/21/18 22:02 Source: patient, EMS Mode of arrival: Ambulatory Limitations: No Limitations - History of Present Illness Initial Comments: Patient is a 33-year-old male presents to emergency room with multiple complaints. Patient complaining of hallucinations, delusions, paranoia and suicidal ideation with the plan. Patient states that he would cut his neck or sheet himself with a gun. Patient states that his paranoia and delusions are getting worse. Patient states hallucinations are getting worse. Patient states he is off his medications. MD Complaint: suicidal ideation, feels depressed -: Sudden Associated Psychiatric Symptoms: depression, suicidal ideation, racing thoughts, auditory hallucinations, visual hallucinations, delusions History of same: Yes Quality: constant Improves With: medication Worsens With: other Context: not taking psychiatric, significant life stressor Associated Symptoms: denies other symptoms. denies: confusion, headache, shortness of breath, nausea, vomiting, syncope, insomnia If Self Harm: admits thoughts of, has plan - Related Data Home Medications Medication Instructions Recorded Confirmed Last Taken FLUoxetine HCL [Prozac] 20 mg PO BID 02/17/18 10/21/18 Unknown Sertraline HCl [Zoloft] 50 mg PO QHS 02/17/18 10/21/18 Unknown Previous Rx's Medication Instructions Recorded Last Taken Type Benztropine [Cogentin] 1 mg PO QHS #30 tablet 06/27/[address] [Depakote Dr] 500 mg PO BID #60 tablet 06/27/16 Unknown Rx Haloperidol [Haldol] 5 mg PO HS #30 tablet 06/27/16 Unknown Rx risperiDONE [RisperDAL] 5 mg PO QHS #30 tablet 06/27/16 Unknown Rx Allergies Allergy/AdvReac Type Severity Reaction Status Date / Time quetiapine fumarate Allergy Unknown Verified 06/27/18 08:46 [From Seroquel] ED Review of Systems ROS: Stated complaint: SUICIDAL Other details as noted in HPI Constitutional: denies: chills, fever Eyes: denies: eye pain, eye discharge, vision change ENT: denies: ear pain, throat pain Respiratory: denies: cough, shortness of breath, wheezing Cardiovascular: denies: chest pain, palpitations Endocrine: no symptoms reported Gastrointestinal: denies: abdominal pain, nausea, diarrhea Genitourinary: denies: urgency, dysuria Musculoskeletal: denies: back pain, joint swelling, arthralgia Skin: denies: rash, lesions Neurological: denies: headache, weakness, paresthesias Psychiatric: depression, auditory hallucinations, visual hallucinations, suicidal thoughts. denies: anxiety Hematological/Lymphatic: denies: easy bleeding, easy bruising ED Past Medical Hx - Past Medical History Previous Medical History?: Yes Hx Hypertension: Yes Hx Seizures: Yes Hx Psychiatric Treatment: Yes (anxiety, schizophrenia, bipolar) Hx Asthma: Yes - Surgical History Past Surgical History?: No - Family History Family history: no significant - Social History Smoking Status: Current Every Day Smoker Substance Use Type: Alcohol, Marijuana - Medications Home Medications: Home Medications Medication Instructions Recorded Confirmed Last Taken Type Benztropine [Cogentin] 1 mg PO QHS #30 tablet 06/27/16 10/21/[address] [Depakote Dr] 500 mg PO BID #60 tablet 06/27/16 10/21/18 Unknown Rx Haloperidol [Haldol] 5 mg PO HS #30 tablet 06/27/16 10/21/18 Unknown Rx risperiDONE [RisperDAL] 5 mg PO QHS #30 tablet 06/27/16 10/21/18 Unknown Rx FLUoxetine HCL [Prozac] 20 mg PO BID 02/17/18 10/21/18 Unknown History Sertraline HCl [Zoloft] 50 mg PO QHS 02/17/18 10/21/18 Unknown History ED Physical Exam - General Limitations: No Limitations General appearance: alert, in no apparent distress - Head Head exam: Present: atraumatic, normocephalic - Eye Eye exam: Present: normal appearance - ENT ENT exam: Present: mucous membranes moist - Neck Neck exam: Present: normal inspection - Respiratory Respiratory exam: Present: normal lung sounds bilaterally. Absent: respiratory distress - Cardiovascular Cardiovascular Exam: Present: regular rate, normal rhythm. Absent: systolic murmur, diastolic murmur, rubs, gallop - GI/Abdominal GI/Abdominal exam: Present: soft, normal bowel sounds - Rectal Rectal exam: Present: deferred - Extremities Exam Extremities exam: Present: normal inspection - Back Exam Back exam: Present: normal inspection - Neurological Exam Neurological exam: Present: alert, oriented X3 - Psychiatric Psychiatric exam: Present: normal affect, flat affect, suicidal ideation - Expanded Psychiatric Exam Expanded Focused psych exam: Present: delusional, paranoid, loose associations - Skin Skin exam: Present: warm, dry, intact, normal color. Absent: rash ED Course Vital Signs 10/21/18 22:43 Temperature 99 F Pulse Rate 107 H Respiratory 16 Rate Blood Pressure 114/70 [Left] O2 Sat by Pulse 97 Oximetry - Reevaluation(s) Reevaluation #1: I discussed all results patient. Patient is medically clear. Patient will remain on a 1013. 10/22/18 01:11 ED Medical Decision Making - Lab Data Result diagrams: 10/21/18 22:41 10/21/18 22:41 - Medical Decision Making She is a 33-year-old male that since emergency room for multiple psychiatric complaints. Patient run of acute psychosis along with suicidal ideation with plan. Patient was placed on 1013. Patient has labs uncinate essentially unremarkable except for a UTI. Patient will be given Bactrim DS. Patient medically cleared. Patient will remain in to the ER until accepted in to appropriate psychiatric facility. - Differential Diagnosis Alli. Suicidal ideations. Psychosis Critical care attestation.: If time is entered above; I have spent that time in minutes in the direct care of this critically ill patient, excluding procedure time. ED Disposition Clinical Impression: Suicidal ideations, Acute psychosis Disposition: DC/TX-65 PSY HOSP/PSY UNIT Is pt being admited?: No Does the pt Need Aspirin: No Condition: Stable Additional Instructions: He is medically cleared Referrals: PRIMARY CARE, [Primary Care Provider] - 3-5 Days Time of Disposition: 01:13
[2018-10-21 23:09] LABS: Basophils % (Auto) 0.5 % (0.0-1.8); Eosinophils # (Auto) 0.1 K/mm3 (0.0-0.4); Hematocrit 39.8 % (35.5-45.6); Hemoglobin 13.7 gm/dl (11.8-15.2); Lymphocytes # (Auto) 1.9 K/mm3 (1.2-5.4); Mean Corpuscular HGB Conc 34 % (32-34); Mean Corpuscular Volume 94 fl (84-94); Monocytes # (Auto) 0.6 K/mm3 (0.0-0.8); Monocytes % (Auto) 10.3 % (0.0-7.3); Platelet Count 256 K/mm3 (140-440); Red Blood Count 4.22 M/mm3 (3.65-5.03); Red Cell Distribution Width 14.6 % (13.2-15.2)
[2018-10-21 23:27] LABS: Bilirubin,Urine NEG (Negative); Blood,Urine NEG (Negative); Color,Urine Yellow (Yellow); Mucus,Urine 2+ /HPF; Protein,Urine <15 mg/dL mg/dL (Negative)
[2018-10-21 23:29] LABS: Amphetamine Screen,Urine PRESUMPTIVE NEGATIVE; Benzodiazepines Screen,Urine PRESUMPTIVE NEGATIVE; Cocaine Screen,Urine PRESUMPTIVE NEGATIVE; Methadone Screen,Urine PRESUMPTIVE NEGATIVE; Opiate Screen,Urine PRESUMPTIVE NEGATIVE
[2018-10-21 23:34] LABS: Alanine Aminotransferase 5 units/L (7-56); Albumin 3.9 g/dL (3.9-5); BUN/Creatinine Ratio 6; Blood Urea Nitrogen 5 mg/dL (9-20); Calcium 9.2 mg/dL (8.4-10.2); Hemolysis Index 3
[2018-10-21 23:43] LABS: Cannabinoid Screen,Urine PRESUMPTIVE POSITIVE
[2018-10-22] MEDS ORDERED: XYLOCAINE 1% MPF 5 mL INFILTRATI ONE (01:14)
[2018-10-22] MEDS ORDERED: ROCEPHIN IM ONE (01:14)
[2018-10-22 10:42] VITALS: BP 98/60
--- NOTE | 2018-10-22 12:45 | Consultation ---
History of Present Illness - Reason for Consult Consult date: 10/22/18 Reason for consult: Mental Health Evaluation Requesting physician: NUZHAT GRANADOS III - Chief Complaint Chief complaint: "I'm not doing well" - History of Present Psychiatric Illness 33 y.o. AA male who presented to the ER for bizarre behavior. This patient is known to me. The patient was calm, but disorganized during the assessment. He appeared preoccupied with loose associations throughout the interview. His answers to most questions were not logical. He had to be redirected several times to keep him on topic. He would not confirm or deny SI's and AH's. Overall, the patient was a poor historian. Medications and Allergies Allergies Allergy/AdvReac Type Severity Reaction Status Date / Time quetiapine fumarate Allergy Unknown Verified 06/27/18 08:46 [From Seroquel] Home Medications Medication Instructions Recorded Confirmed Last Taken Type Benztropine [Cogentin] 1 mg PO QHS #30 tablet 06/27/16 10/21/[address] [Depakote Dr] 500 mg PO BID #60 tablet 06/27/16 10/21/18 Unknown Rx Haloperidol [Haldol] 5 mg PO HS #30 tablet 06/27/16 10/21/18 Unknown Rx risperiDONE [RisperDAL] 5 mg PO QHS #30 tablet 06/27/16 10/21/18 Unknown Rx FLUoxetine HCL [Prozac] 20 mg PO BID 02/17/18 10/21/18 Unknown History Sertraline HCl [Zoloft] 50 mg PO QHS 02/17/18 10/21/18 Unknown History Sulfamethoxazole/Trimethoprim 1 each PO BID 10 Days #20 tablet 10/22/18 Unknown Rx [Bactrim DS TAB] Past psychiatric history - Past Medical History Past Medical History: No medical history Past Surgical History: No surgical history - past Psychiatric treatment and history psychiatric treatment history: Several inpatient psy settings in the past. Denies a fam psy hx. - Social History Social history: Lives alone Mental Status Exam - Vital signs Last Vital Signs Temp 97.6 F 10/22/18 08:00 Pulse 71 10/22/18 08:00 Resp 18 10/22/18 08:00 BP 98/60 10/22/18 08:00 Pulse Ox 99 10/22/18 08:00 - Exam Narrative exam: MSE: Appearance: calm, cooperative Behavior: regular eye contact Speech: regular rate and tone Mood: "okay" Affect: flat Thought Process: disorganized Thought Content: denies HI's and VH's Motor Activity: ambulatory Cognition: A/O x3 Insight: poor Judgment: poor Results Result Diagrams: 10/21/18 22:41 10/21/18 22:41 Abnormal lab results 10/21/18 10/21/18 10/21/18 Range/Units 22:26 22:41 22:41 [place] % (Auto) 10.3 H (0.0-7.3) % BUN 5 L (9-20) mg/dL Glucose 114 H (75-100) mg/dL ALT 5 L (7-56) units/L Urine WBC (Auto) 9.0 H (0.0-6.0) /HPF Salicylates (2.8-20.0) mg/dL Acetaminophen (10.0-30.0) ug/mL 10/21/18 10/21/18 Range/Units 22:41 22:41 [place] % (Auto) (0.0-7.3) % BUN (9-20) mg/dL Glucose (75-100) mg/dL ALT (7-56) units/L Urine WBC (Auto) (0.0-6.0) /HPF Salicylates < 0.3 L (2.8-20.0) mg/dL Acetaminophen < 5.0 L (10.0-30.0) ug/mL All other labs normal. Assessment and Plan Assessment and plan: Impression; Unspecified Psychosis. Cannabis Use DO. Today the patient was calm, but disorganized during the assessment. DDx: Schizophrenia, Bipolar DO with psychosis, Substance Induced Psychosis Recommendation/Plan: Continue 1013. Dispo: The patient was accepted at [facility] for inpatient psy services. Staffed with Dr Lawanda Downing.
== END 2018-10-22 10:45 ==
LOC: EEVIPCON 21:58 → ED 21:58
DX: F23 Brief psychotic disorder (principal); I10 Essential (primary) hypertension; F31.9 Bipolar disorder, unspecified; F41.9 Anxiety disorder, unspecified; J45.909 Unspecified asthma, uncomplicated; F17.200 Nicotine dependence, unspecified, uncomplicated; F12.10 Cannabis abuse, uncomplicated; Z79.899 Other long term (current) drug therapy; Z88.8 Allergy status to other drugs, medicaments and biological substances
CPT/HCPCS: 36415; 80053; 80307; 81001; 85025; 87086; 96372; 99285; J0696; 80320; G0480

== ENCOUNTER 2018-12-12 08:44 | Emergency (ER) | payer MEDICAID ==
--- NOTE | 2018-12-12 09:47 | Emergency Department Report ---
ED Psych HPI - General Chief Complaint: Psych Stated Complaint: PYSH EVAL Time Seen by Provider: 12/12/18 09:46 Source: patient Mode of arrival: Ambulatory - History of Present Illness Initial Comments: 23-year-old -[place] male patient with history of bipolar disorder and schizophrenia presents with complaints of suicidal thoughts with plan to shoot himself with a gun times today. Patient's speech is tangential, he exhibits racing thoughts, and is an unreliable historian. [place] any homicidal thoughts or auditory/visual hallucinations. MD Complaint: suicidal ideation -: days(s) Associated Psychiatric Symptoms: racing thoughts Associated Symptoms: denies other symptoms Treatments Prior to Arrival: none - Related Data Home Medications Medication Instructions Recorded Confirmed Last Taken FLUoxetine HCL [Prozac] 20 mg PO BID 02/17/18 10/21/18 Unknown Sertraline HCl [Zoloft] 50 mg PO QHS 02/17/18 10/21/18 Unknown Previous Rx's Medication Instructions Recorded Last Taken Type Benztropine [Cogentin] 1 mg PO QHS #30 tablet 06/27/16 Unknown Rx Divalproex [Porsha Mclean] 500 mg PO BID #60 tablet 06/27/16 Unknown Rx Haloperidol [Haldol] 5 mg PO HS #30 tablet 06/27/16 Unknown Rx risperiDONE [RisperDAL] 5 mg PO QHS #30 tablet 06/27/16 Unknown Rx Sulfamethoxazole/Trimethoprim 1 each PO BID 10 Days #20 tablet 10/22/18 Unknown Rx [Bactrim DS TAB] Allergies Allergy/AdvReac Type Severity Reaction Status Date / Time quetiapine fumarate Allergy Unknown Verified 06/27/18 08:46 [From Seroquel] ED Review of Systems ROS: Stated complaint: PYSH EVAL Other details as noted in HPI ED Past Medical Hx - Past Medical History Previous Medical History?: Yes Hx Hypertension: Yes Hx Seizures: Yes Hx Psychiatric Treatment: Yes (anxiety, schizophrenia, bipolar) Hx Asthma: Yes - Surgical History Past Surgical History?: No - Social History Smoking Status: Current Every Day Smoker Substance Use Type: Alcohol, Cocaine, Heroin, Marijuana, Prescribed, Methamphetamines - Medications Home Medications: Home Medications Medication Instructions Recorded Confirmed Last Taken Type Benztropine [Cogentin] 1 mg PO QHS #30 tablet 06/27/16 10/21/[address] [Depakote Dr] 500 mg PO BID #60 tablet 06/27/16 10/21/18 Unknown Rx Haloperidol [Haldol] 5 mg PO HS #30 tablet 06/27/16 10/21/18 Unknown Rx risperiDONE [RisperDAL] 5 mg PO QHS #30 tablet 06/27/16 10/21/18 Unknown Rx FLUoxetine HCL [Prozac] 20 mg PO BID 02/17/18 10/21/18 Unknown History Sertraline HCl [Zoloft] 50 mg PO QHS 02/17/18 10/21/18 Unknown History Sulfamethoxazole/Trimethoprim 1 each PO BID 10 Days #20 tablet 10/22/18 Unknown Rx [Bactrim DS TAB] ED Physical Exam - General Limitations: No Limitations ED Course Vital Signs 12/12/18 12/12/18 12/12/18 08:46 09:38 14:00 Temperature 98.3 F 98.0 F 97.9 F Pulse Rate 124 H 100 H 101 H Respiratory 20 18 18 Rate Blood Pressure 136/77 Blood Pressure 117/83 97/64 [Left] O2 Sat by Pulse 96 98 100 Oximetry ED Medical Decision Making - Lab Data Result diagrams: 12/12/18 09:17 12/12/18 09:17 - Medical Decision Making Patient placed on 1013 for suicidal thoughts and apparent manic episode. He is medically cleared. She continues to pend mental health assessment Critical care attestation.: If time is entered above; I have spent that time in minutes in the direct care of this critically ill patient, excluding procedure time. ED Disposition Clinical Impression: Suicidal thoughts, Manic behavior Disposition: DC/TX-65 PSY HOSP/PSY UNIT Is pt being admited?: No Condition: Stable Referrals: PRIMARY CARE, [Primary Care Provider] - 3-5 Days
[2018-12-12 09:54] LABS: Basophils # (Auto) 0.1 K/mm3 (0.0-0.1); Eosinophils # (Auto) 0.1 K/mm3 (0.0-0.4); Eosinophils % (Auto) 1.1 % (0.0-4.3); Hematocrit 44.9 % (35.5-45.6); Hemoglobin 15.5 gm/dl (11.8-15.2); Lymphocytes # (Auto) 1.9 K/mm3 (1.2-5.4); Lymphocytes % (Auto) 35.7 % (13.4-35.0); Mean Corpuscular HGB Conc 35 % (32-34); Mean Corpuscular Volume 98 fl (84-94); Monocytes # (Auto) 0.5 K/mm3 (0.0-0.8); Monocytes % (Auto) 8.8 % (0.0-7.3); Platelet Count 229 K/mm3 (140-440); Red Blood Count 4.58 M/mm3 (3.65-5.03); Red Cell Distribution Width 15.7 % (13.2-15.2)
[2018-12-12] MEDS ORDERED: ATIVAN PO ONE (09:59)
[2018-12-12 10:14] LABS: BUN/Creatinine Ratio 13; Blood Urea Nitrogen 13 mg/dL (9-20)
[2018-12-12 10:15] LABS: Calcium 9.6 mg/dL (8.4-10.2); Hemolysis Index 3
[2018-12-12 10:34] LABS: Bilirubin,Urine NEG (Negative); Blood,Urine NEG (Negative); Color,Urine Yellow (Yellow); Mucus,Urine 1+ /HPF; Protein,Urine <15 mg/dL mg/dL (Negative)
[2018-12-12 10:44] LABS: Amphetamine Screen,Urine PRESUMPTIVE NEGATIVE; Benzodiazepines Screen,Urine PRESUMPTIVE NEGATIVE; Cannabinoid Screen,Urine PRESUMPTIVE NEGATIVE; Cocaine Screen,Urine PRESUMPTIVE NEGATIVE; Methadone Screen,Urine PRESUMPTIVE NEGATIVE; Opiate Screen,Urine PRESUMPTIVE NEGATIVE
[2018-12-13 07:21] VITALS: BP 112/56
== END 2018-12-13 07:18 ==
LOC: EEVIPCON 08:44 → ED 08:44
DX: F31.9 Bipolar disorder, unspecified (principal); I10 Essential (primary) hypertension; J45.909 Unspecified asthma, uncomplicated; F17.200 Nicotine dependence, unspecified, uncomplicated; F14.10 Cocaine abuse, uncomplicated; F12.10 Cannabis abuse, uncomplicated; F15.10 Other stimulant abuse, uncomplicated; Z79.899 Other long term (current) drug therapy; Z88.8 Allergy status to other drugs, medicaments and biological substances
CPT/HCPCS: 36415; 80048; 80307; 80320; 81001; 85025; G0480

== ENCOUNTER 2018-12-20 03:22 | Emergency (ER) | payer MEDICAID ==
[2018-12-20 04:22] LABS: Basophils % (Auto) 0.5 % (0.0-1.8); Eosinophils # (Auto) 0.2 K/mm3 (0.0-0.4); Eosinophils % (Auto) 2.3 % (0.0-4.3); Hematocrit 44.2 % (35.5-45.6); Hemoglobin 15.1 gm/dl (11.8-15.2); Lymphocytes # (Auto) 2.7 K/mm3 (1.2-5.4); Mean Corpuscular HGB Conc 34 % (32-34); Mean Corpuscular Volume 97 fl (84-94); Monocytes # (Auto) 0.5 K/mm3 (0.0-0.8); Monocytes % (Auto) 7.4 % (0.0-7.3); Platelet Count 201 K/mm3 (140-440); Red Blood Count 4.55 M/mm3 (3.65-5.03)
[2018-12-20 04:42] LABS: BUN/Creatinine Ratio 10; Blood Urea Nitrogen 9 mg/dL (9-20); Hemolysis Index 16
--- NOTE | 2018-12-20 04:48 | Emergency Department Report ---
ED Psych HPI - General Chief Complaint: Psych Stated Complaint: SCHIZO/BIPOLAR MANIC DEPRESSIVE EPISODE Time Seen by Provider: 12/20/18 04:34 Source: patient Mode of arrival: Ambulatory - History of Present Illness Initial Comments: Patient is 33 years old male with history of schizophrenia. Patient presented to the ER stating that he is hearing voices asking him to kill himself. Patient denied any visual hallucination but admitted auditory hallucination. Patient denied any homicidal ideation. MD Complaint: suicidal ideation, altered mental status Associated Psychiatric Symptoms: suicidal ideation, racing thoughts, auditory hallucinations History of same: Yes Quality: constant Associated Symptoms: denies other symptoms Treatments Prior to Arrival: none If Self Harm: admits thoughts of - Related Data Home Medications Medication Instructions Recorded Confirmed Last Taken Sertraline HCl [Zoloft] 50 mg PO QHS 02/17/18 12/20/18 12/19/18 OLANZapine [Zyprexa] 20 mg PO QHS 12/20/18 12/20/18 12/19/18 Paliperidone Palmitate(Nf) [Invega 234 mg IM QMONTH 12/20/18 12/20/18 12/07/18 Sustenna(Nf)] Previous Rx's Medication Instructions Recorded Last Taken Type Benztropine [Cogentin] 1 mg PO QHS #30 tablet 06/27/16 12/19/[address] [Depantonyte Dr] 500 mg PO BID #60 tablet 06/27/16 12/19/18 Rx Haloperidol [Haldol] 5 mg PO HS #30 tablet 06/27/16 12/19/18 Rx risperiDONE [RisperDAL] 5 mg PO QHS #30 tablet 06/27/16 12/19/18 Rx Allergies Allergy/AdvReac Type Severity Reaction Status Date / Time quetiapine fumarate Allergy Unknown Verified 06/27/18 08:46 [From Seroquel] ED Review of Systems ROS: Stated complaint: SCHIZO/BIPOLAR MANIC DEPRESSIVE EPISODE Other details as noted in HPI Comment: All other systems reviewed and negative Constitutional: denies: chills, fever Respiratory: denies: cough, shortness of breath, SOB with exertion Cardiovascular: denies: chest pain, palpitations Gastrointestinal: denies: abdominal pain, nausea, vomiting Musculoskeletal: denies: back pain Neurological: denies: headache, weakness, numbness, paresthesias, confusion, abnormal gait Psychiatric: auditory hallucinations, suicidal thoughts. denies: visual hallucinations, homicidal thoughts ED Past Medical Hx - Past Medical History Previous Medical History?: Yes Hx Hypertension: Yes Hx Seizures: Yes Hx Psychiatric Treatment: Yes (anxiety, schizophrenia, bipolar) Hx Asthma: Yes - Surgical History Past Surgical History?: No - Social History Smoking Status: Current Every Day Smoker Substance Use Type: Alcohol, Cocaine, Marijuana - Medications Home Medications: Home Medications Medication Instructions Recorded Confirmed Last Taken Type Benztropine [Cogentin] 1 mg PO QHS #30 tablet 06/27/16 12/20/18 12/19/[address] [Depakote Dr] 500 mg PO BID #60 tablet 06/27/16 12/20/18 12/19/18 Rx Haloperidol [Haldol] 5 mg PO HS #30 tablet 06/27/16 12/20/18 12/19/18 Rx risperiDONE [RisperDAL] 5 mg PO QHS #30 tablet 06/27/16 12/20/18 12/19/18 Rx Sertraline HCl [Zoloft] 50 mg PO QHS 02/17/18 12/20/18 12/19/18 History OLANZapine [Zyprexa] 20 mg PO QHS 12/20/18 12/20/18 12/19/18 History Paliperidone Palmitate(Nf) [Invega 234 mg IM QMONTH 12/20/18 12/20/18 12/07/18 History Sustenna(Nf)] ED Physical Exam - General Limitations: No Limitations General appearance: alert, in no apparent distress, anxious - Head Head exam: Present: atraumatic, normocephalic, normal inspection - Eye Eye exam: Present: normal appearance - ENT ENT exam: Present: normal exam, normal orophraynx, mucous membranes moist - Neck Neck exam: Present: normal inspection, full ROM. Absent: tenderness, meningismus, lymphadenopathy, thyromegaly - Respiratory Respiratory exam: Present: normal lung sounds bilaterally - Cardiovascular Cardiovascular Exam: Present: regular rate, normal rhythm, normal heart sounds - GI/Abdominal GI/Abdominal exam: Present: soft, normal bowel sounds. Absent: distended, tenderness, guarding, rebound, rigid, mass, bruit, pulsatile mass, hernia - Extremities Exam Extremities exam: Present: normal inspection, full ROM, normal capillary refill. Absent: pedal edema, calf tenderness - Back Exam Back exam: Present: normal inspection, full ROM. Absent: CVA tenderness (R), CVA tenderness (L), muscle spasm, paraspinal tenderness, vertebral tenderness - Neurological Exam Neurological exam: Present: alert, oriented X3, CN II-XII intact, normal gait, reflexes normal - Psychiatric Psychiatric exam: Present: anxious, suicidal ideation. Absent: depressed, flat affect, manic, homicidal ideation - Skin Skin exam: Present: warm, intact, normal color ED Course Vital Signs 12/20/18 12/20/18 12/20/18 03:28 08:40 17:33 Temperature 98.1 F 97.8 F 98.1 F Pulse Rate 98 H 85 88 Respiratory 18 18 Rate Blood Pressure 119/73 Blood Pressure 106/63 102/58 [106/63] O2 Sat by Pulse 100 99 100 Oximetry 12/20/18 20:57 Temperature 97.5 F L Pulse Rate 70 Respiratory 18 Rate Blood Pressure Blood Pressure 104/63 [106/63] O2 Sat by Pulse 100 Oximetry ED Medical Decision Making - Lab Data Result diagrams: 12/20/18 03:46 12/20/18 03:46 Critical care attestation.: If time is entered above; I have spent that time in minutes in the direct care of this critically ill patient, excluding procedure time. ED Disposition Clinical Impression: Suicidal ideations Disposition: DC/TX-65 PSY HOSP/PSY UNIT Is pt being admited?: No Condition: Stable Referrals: PRIMARY CARE, [Primary Care Provider] - 3-5 Days
[2018-12-20 05:14] LABS: Bilirubin,Urine NEG (Negative); Blood,Urine NEG (Negative); Color,Urine Yellow (Yellow); Mucus,Urine FEW /HPF; Protein,Urine <15 mg/dL mg/dL (Negative); Urobilinogen,Urine < 2.0 mg/dL (<2.0)
[2018-12-20 05:21] LABS: Amphetamine Screen,Urine PRESUMPTIVE NEGATIVE; Benzodiazepines Screen,Urine PRESUMPTIVE NEGATIVE; Cannabinoid Screen,Urine PRESUMPTIVE NEGATIVE; Cocaine Screen,Urine PRESUMPTIVE NEGATIVE; Methadone Screen,Urine PRESUMPTIVE NEGATIVE; Opiate Screen,Urine PRESUMPTIVE NEGATIVE
--- NOTE | 2018-12-20 08:01 | Consultation ---
History of Present Illness - Reason for Consult Consult date: 12/20/18 Reason for consult: Mental Health Evaluation Requesting physician: MADIHA URIBE - Chief Complaint Chief complaint: "I'm hearing the voices" - History of Present Psychiatric Illness 33 y.o. AA male who presented to the ER for AH's and SI's. This patient is known to me. Today the patient was calm during the assessment. He stated that the voices he is hearing are "not good." He stated that the voices are telling him to kill himself. The patient's presentation is similar to a previous ER visit. The patient stated that he take Depakote and another medication for his mental health. He stated that he was recently discharged from a mental health facility. He denies any previous suicide attempts when asked. He denies HI's and VH's. He denies erratic sleep and a poor appetite. He denies recreational drug use and alcohol consumption (etoh). Medications and Allergies Allergies Allergy/AdvReac Type Severity Reaction Status Date / Time quetiapine fumarate Allergy Unknown Verified 06/27/18 08:46 [From Seroquel] Home Medications Medication Instructions Recorded Confirmed Last Taken Type Benztropine [Cogentin] 1 mg PO QHS #30 tablet 06/27/16 12/12/18 1 Day Ago Rx ~12/11/[address] [Depakote Dr] 500 mg PO BID #60 tablet 06/27/16 12/12/18 1 Day Ago Rx ~12/11/18 Haloperidol [Haldol] 5 mg PO HS #30 tablet 06/27/16 12/12/18 1 Day Ago Rx ~12/11/18 risperiDONE [RisperDAL] 5 mg PO QHS #30 tablet 06/27/16 12/12/18 1 Day Ago Rx ~12/11/18 FLUoxetine HCL [Prozac] 20 mg PO BID 02/17/18 12/12/18 1 Day Ago History ~12/11/18 Sertraline HCl [Zoloft] 50 mg PO QHS 02/17/18 12/12/18 1 Day Ago History ~12/11/18 Sulfamethoxazole/Trimethoprim 1 each PO BID 10 Days #20 tablet 10/22/18 12/12/18 1 Month Ago Rx [Bactrim DS TAB] ~11/12/18 Past psychiatric history - Past Medical History Past Medical History: No medical history Past Surgical History: No surgical history - past Psychiatric treatment and history psychiatric treatment history: Several inpatient psy settings in the past. Denies a fam psy hx. - Social History Social history: other (Reside at a [facility]) Mental Status Exam - Vital signs Last Vital Signs Temp 98.1 F 12/20/18 03:28 Pulse 98 H 12/20/18 03:28 Resp 18 12/20/18 03:28 BP 119/73 12/20/18 03:28 Pulse Ox 100 12/20/18 03:28 - Exam Narrative exam: MSE: Appearance: calm Behavior: poor eye contact Speech: regular rate and low tone Mood: preoccupied Affect: flat Thought Process: circumstantial Thought Content: denies HI's and VH's, responding to some type of stimuli Motor Activity: ambulatory Cognition: A/O x3 Insight: variable Judgment: poor Results Result Diagrams: 12/20/18 03:46 12/20/18 03:46 Abnormal lab results 12/20/18 12/20/18 12/20/18 Range/Units 03:46 03:46 03:46 MCV 97 H (84-94) fl MCH 33 H (28-32) pg Lymph % (Auto) 37.0 H (13.4-35.0) % [place] % (Auto) 7.4 H (0.0-7.3) % Salicylates < 0.3 L (2.8-20.0) mg/dL Acetaminophen < 5.0 L (10.0-30.0) ug/mL All other labs normal. Assessment and Plan Assessment and plan: Impression; Unspecified Mood DO with psy features. Today the patient was calm during the assessment. DDx: Schizophrenia, Bipolar DO with psychosis, SCAD Recommendation/Plan: Continue 1013. and start Depakote 500 mg PO BID for mood and Zyprexa 5 mg PO HS for mood/psychosis. Discussed possible metabolic side effects of Zyprexa with the patient, he verbalized understanding. Baseline A1c/Lipid Panel ordered for the AM. Dispo: The patient was referred to inpatient psy services. Will staff with Dr Lawanda Downing.
[2018-12-20 08:59] LABS: Alanine Aminotransferase 6 units/L (7-56)
[2018-12-20 21:01] VITALS: BP 104/63
== END 2018-12-20 20:15 ==
LOC: EEVIPCON 03:22 → ED 03:22
DX: R45.851 Suicidal ideations (principal); R41.82 Altered mental status, unspecified; I10 Essential (primary) hypertension; F41.9 Anxiety disorder, unspecified; F25.0 Schizoaffective disorder, bipolar type; J45.909 Unspecified asthma, uncomplicated; F17.200 Nicotine dependence, unspecified, uncomplicated; F12.10 Cannabis abuse, uncomplicated; Z79.899 Other long term (current) drug therapy; Z88.8 Allergy status to other drugs, medicaments and biological substances
CPT/HCPCS: 36415; 80048; 80164; 80307; 80320; 81001; 82150; 83690; 84075; 84450; 84460; 85025; G0480

== ENCOUNTER 2019-04-10 21:29 | Emergency (ER) | payer MEDICAID ==
--- NOTE | 2019-04-10 22:59 | Emergency Department Report ---
HPI <MICHAELZOHREH - Last Filed: 04/11/19 15:55> - HPI HPI: 33-year-old -[place] male presents the emergency department for a mental health evaluation. He has a history of bipolar disorder and schizophrenia and says he has not been compliant with his medications. He says that he does have a psychiatrist through [facility] but has not seen them recently. The patient admits to both auditory and visual hallucinations, as well as suicidal ideations. The patient goes on some type of rambling speech about having psychosis in which she says that there is a "disconnect in my brain" and some type of a "chemical reaction." Patient says that he hears voices telling him that they are going to kill him. He has visual hallucinations that includes seeing "cartoons" and "seeing people being beat up" that are not there. Patient says that he is suicidal and would kill himself by shooting himself with a gun and says that he has access to a gun. <ERIC NAIK S - Last Filed: 04/14/19 09:14> - General Chief Complaint: Psych Time Seen by Provider: 04/10/19 22:40 ED Past Medical Hx <RODRIGUEZZOHREH - Last Filed: 04/11/19 15:55> - Past Medical History Hx Hypertension: Yes Hx Seizures: Yes Hx Psychiatric Treatment: Yes (anxiety, schizophrenia, bipolar) Hx Asthma: Yes - Surgical History Past Surgical History?: No - Social History Smoking Status: Current Every Day Smoker Substance Use Type: Alcohol, Marijuana <ERIC NAIK S - Last Filed: 04/14/19 09:14> - Medications Home Medications: Home Medications Medication Instructions Recorded Confirmed Last Taken Type Benztropine [Cogentin] 1 mg PO QHS #30 tablet 06/27/16 12/20/18 12/19/[address] [Depakote Dr] 500 mg PO BID #60 tablet 06/27/16 12/20/18 12/19/18 Rx haloperidoL [Haldol] 5 mg PO HS #30 tablet 06/27/16 12/20/18 12/19/18 Rx risperiDONE [RisperDAL] 5 mg PO QHS #30 tablet 06/27/16 12/20/18 12/19/18 Rx Sertraline HCl [Zoloft] 50 mg PO QHS 02/17/18 12/20/18 12/19/18 History OLANZapine [Zyprexa] 20 mg PO QHS 12/20/18 12/20/18 12/19/18 History Paliperidone Palmitate(Nf) [Invega 234 mg IM QMONTH 12/20/18 12/20/18 12/07/18 History Sustenna(Nf)] Nitrofurantoin Meigs/M-Cryst 100 mg PO Q12HR #14 capsule 04/10/19 Unknown Rx [Macrobid CAP] ED Review of Systems ROS: Stated complaint: PSYCH EVAL/ SI Other details as noted in HPI <ZOHREH RODRIGUEZ - Last Filed: 04/11/19 15:55> ROS: Stated complaint: PSYCH EVAL/ SI Other details as noted in HPI Comment: All other systems reviewed and negative Constitutional: denies: chills, fever Respiratory: denies: shortness of breath Cardiovascular: denies: chest pain Gastrointestinal: denies: abdominal pain, vomiting Musculoskeletal: denies: back pain Neurological: denies: headache, weakness Psychiatric: auditory hallucinations, visual hallucinations, suicidal thoughts. denies: homicidal thoughts <ERIC NAIK - Last Filed: 04/14/19 09:14> Physical Exam - Physical Exam Vital Signs: Vital Signs 04/10/19 04/10/19 04/10/19 22:25 22:29 23:08 Temperature 97.9 F 97.9 F Pulse Rate 109 H 109 H Respiratory 16 16 15 Rate Blood Pressure 131/93 Blood Pressure 131/93 [Right] O2 Sat by Pulse 98 98 Oximetry 04/11/19 04/11/19 04/11/19 02:25 07:00 13:00 Temperature 98.0 F 98.1 F 98.2 F Pulse Rate 83 79 95 H Respiratory 16 20 18 Rate Blood Pressure Blood Pressure 109/74 103/70 101/63 [Right] O2 Sat by Pulse 100 99 98 Oximetry <ZOHREH RODRIGUEZ - Last Filed: 04/11/19 15:55> - Physical Exam Vital Signs: Vital Signs 04/10/19 22:25 Temperature 97.9 F Pulse Rate 109 H Respiratory 16 Rate Blood Pressure 131/93 O2 Sat by Pulse 98 Oximetry Physical Exam: GENERAL: The patient is well-developed well-nourished. HEENT: Normocephalic. Atraumatic. Patient has moist mucous membranes. EYES: Extraocular motions are intact. NECK: Supple. Trachea is midline. CHEST/LUNGS: Clear to auscultation. There is no respiratory distress noted. HEART/CARDIOVASCULAR: Regular. There is no tachycardia. There is no murmur. ABDOMEN: Abdomen is soft, nontender. Patient has normal bowel sounds. SKIN:Skin is warm and dry. . NEURO: The patient is awake, alert, and oriented. The patient is cooperative. The patient has no focal neurologic deficits. Normal speech. MUSCULOSKELETAL: There is no tenderness or deformity. There is no evidence of acute injury. <ERIC NAIK S - Last Filed: 04/14/19 09:14> ED Course Vital Signs 04/10/19 04/10/19 04/10/19 22:25 22:29 23:08 Temperature 97.9 F 97.9 F Pulse Rate 109 H 109 H Respiratory 16 16 15 Rate Blood Pressure 131/93 Blood Pressure 131/93 [Right] O2 Sat by Pulse 98 98 Oximetry 04/11/19 04/11/19 04/11/19 02:25 07:00 13:00 Temperature 98.0 F 98.1 F 98.2 F Pulse Rate 83 79 95 H Respiratory 16 20 18 Rate Blood Pressure Blood Pressure 109/74 103/70 101/63 [Right] O2 Sat by Pulse 100 99 98 Oximetry - Reevaluation(s) Reevaluation #1: 04/11/19 15:55 ABDOUL KEVIN Male : 1985 MedRec# [id number] 04/11/19 13:56 - MH Clinical Massage Therapist's Note by AALIYAH COSME Acct Num: [id number] : 1985 Patient Age: 33 Pt is a 33 yo AA male presenting to ED for MHE, as pt initially reported A/V H and SI with plan to shoot self. Pt reported access to gun. During ax, pt presented as cooperative, with calm mood and flat affect. Pt presented with poor eyesight and some delayed responses throughout ax, appearing as if he was attempting to recall what he previously told radio time salesperson. Pt denies SI/HI and denies hx of attempts. Pt reports A/H that tell him to go places, such as the store, the hospital and outside. Pt denies commands to hurt self or others. Pt informed radio time salesperson that he has a dx of Schizoaffective Disorder and reported non-compliance with medication for the past 3 months. Pt reports being connected to [facility]. Pt reports marijuana use, reporting one blunt weekly, with last use being yesterday. Pt identifies onset age of 16. Pt denies legal issues. Pt denies sleep issues. Pt denies appetite issues. Clinical Massage Therapist contacted Photographer Finish Patricia at [facility] for collateral information. Per Patricia, pt is on Invega IM, and has been compliant with medication/OP tx. Patricia informed radio time salesperson that pt tends to go to the hospital when he doesnt get what he wants. Patricia identified hx of frequent admissions to ED for secondary gains of placement. Patricia confirmed that pt stays at a custodial and does not have access to a gun. Patricia informed radio time salesperson that pt has a poor memory and tends to forget information that he previously reported. Patricia stated that pt can return to home and will have visit from ACT Team within 24 hours of discharge. Patricia is requesting transport via [facility] Transport to avoid having pt transport to an alternative ED. Recommendations: Clinical Massage Therapist briefed case with attending psychiatrist, who is recommending rescinding 1013 and discharge with f/u OP TX. Aaliyah Cosme LMSW Initialized on 04/11/19 13:56 - END OF NOTE <ZOHREH RODRIGUEZ - Last Filed: 04/11/19 15:55> Vital Signs 04/10/19 22:25 Temperature 97.9 F Pulse Rate 109 H Respiratory 16 Rate Blood Pressure 131/93 O2 Sat by Pulse 98 Oximetry <ERIC NAIK - Last Filed: 04/14/19 09:14> ED Medical Decision Making - Lab Data Result diagrams: 04/10/19 23:04 04/10/19 23:04 <ZOHREH RODRIGUEZ - Last Filed: 04/11/19 15:55> - Lab Data Result diagrams: 04/10/19 23:04 04/10/19 23:04 - Medical Decision Making This patient presents for a mental health evaluation. He has a history of bipolar disorder and schizophrenia and admits to both auditory and visual hallucinations. On top of this acute psychosis, the patient claims to have suicidal ideations with a plan to shoot himself with a gun, which he says he has access to. For this reason he has been made a 1013. His labs are mostly unremarkable except for positive marijuana UDS and a urinary tract infection. The UTI will be treated with Macrobid. Vital signs stable throughout his ED course thus far. At this point the patient appears medically cleared for psychiatric placement and will be seen by the psychiatric assessment team in the morning. - Differential Diagnosis bipolar disorder, schizophrenia, schizoaffective, substance abuse <ERIC NAIK - Last Filed: 04/14/19 09:14> Critical care attestation.: If time is entered above; I have spent that time in minutes in the direct care of this critically ill patient, excluding procedure time. <ZOHREH RODRIGUEZ - Last Filed: 04/11/19 15:55> Critical Care Time: No Critical care attestation.: If time is entered above; I have spent that time in minutes in the direct care of this critically ill patient, excluding procedure time. <ERIC NAIK - Last Filed: 04/14/19 09:14> ED Disposition Is pt being admited?: No Does the pt Need Aspirin: No <ZOHREH RODRIGUEZ - Last Filed: 04/11/19 15:55> Is pt being admited?: No Time of Disposition: 00:18 <ERIC NAIK S - Last Filed: 04/14/19 09:14> Clinical Impression: Acute psychosis, Malingering UTI (urinary tract infection) Qualifiers: Urinary tract infection type: acute cystitis Hematuria presence: without hematuria Qualified Code(s): N30.00 - Acute cystitis without hematuria Disposition: TO HOME OR SELFCARE Condition: Stable Prescriptions: Nitrofurantoin Meigs/M-Cryst [Macrobid CAP] 100 mg PO Q12HR #14 capsule Referrals: PRIMARY CARE, [Primary Care Provider] - 3-5 Days
[2019-04-10 23:24] LABS: Basophils % (Auto) 0.2 % (0.0-1.8); Eosinophils # (Auto) 0.1 K/mm3 (0.0-0.4); Eosinophils % (Auto) 1.2 % (0.0-4.3); Hematocrit 39.9 % (35.5-45.6); Hemoglobin 13.4 gm/dl (11.8-15.2); Lymphocytes # (Auto) 1.9 K/mm3 (1.2-5.4); Lymphocytes % (Auto) 29.9 % (13.4-35.0); Mean Corpuscular HGB Conc 34 % (32-34); Mean Corpuscular Volume 96 fl (84-94); Monocytes # (Auto) 0.5 K/mm3 (0.0-0.8); Monocytes % (Auto) 8.2 % (0.0-7.3); Platelet Count 255 K/mm3 (140-440); Red Blood Count 4.16 M/mm3 (3.65-5.03); Red Cell Distribution Width 15.2 % (13.2-15.2)
[2019-04-10 23:40] LABS: BUN/Creatinine Ratio 6; Blood Urea Nitrogen 7 mg/dL (9-20); Calcium 9.5 mg/dL (8.4-10.2); Hemolysis Index 11
[2019-04-10 23:42] LABS: Bacteria,Urine 1+ /HPF (Negative); Bilirubin,Urine NEG (Negative); Blood,Urine NEG (Negative); Color,Urine Yellow (Yellow); Mucus,Urine FEW /HPF; Protein,Urine <15 mg/dL mg/dL (Negative)
[2019-04-10 23:49] LABS: Amphetamine Screen,Urine PRESUMPTIVE NEGATIVE; Benzodiazepines Screen,Urine PRESUMPTIVE NEGATIVE; Cocaine Screen,Urine PRESUMPTIVE NEGATIVE; Methadone Screen,Urine PRESUMPTIVE NEGATIVE; Opiate Screen,Urine PRESUMPTIVE NEGATIVE
[2019-04-11 00:01] LABS: Cannabinoid Screen,Urine PRESUMPTIVE POSITIVE
[2019-04-11] MEDS: NITROFURANTOIN MONOHYD/M-CRYST 100 MG CAP PO SCH ×2 (05:54→10:01)
[2019-04-11 15:18] VITALS: BP 101/63
== END 2019-04-11 21:00 | disposition home or self-care (01) ==
LOC: EEVIPCON 21:29 → ED 21:29
DX: F23 Brief psychotic disorder (principal); Z76.5 Malingerer [conscious simulation]; N39.0 Urinary tract infection, site not specified; I10 Essential (primary) hypertension; F41.9 Anxiety disorder, unspecified; F20.89 Other schizophrenia; F17.200 Nicotine dependence, unspecified, uncomplicated; F12.10 Cannabis abuse, uncomplicated; Z79.899 Other long term (current) drug therapy; Z88.8 Allergy status to other drugs, medicaments and biological substances
CPT/HCPCS: 36415; 80048; 80307; 80320; 81001; 85025; 87086; G0480

== ENCOUNTER 2019-07-28 19:43 | Emergency (ER) | payer MEDICAID | END 2019-07-29 00:32 | LOC: ED 19:43 | DX: F20.9 Schizophrenia, unspecified (principal); Z53.21 Procedure and treatment not carried out due to patient leaving prior to being seen by health care provider ==

== ENCOUNTER 2019-11-28 23:32 | Emergency (ER) | payer MEDICAID ==
[2019-11-28] MEDS ORDERED: LORazepam 2 MG/ML VIAL IM PRN (23:56)
[2019-11-28] MEDS ORDERED: HALOPERIDOL LACTATE 5 MG/1 ML INJ IM PRN (23:56)
--- NOTE | 2019-11-29 00:07 | Emergency Department Report ---
ED General Adult HPI - General Chief complaint: Psych Stated complaint: MH EVAL/SUICIDAL PUI?: No Time Seen by Provider: 11/28/19 23:47 Source: patient, EMS ( EMS documentation not available at time of chart dictation ), RN notes reviewed, old records reviewed Mode of arrival: Ambulatory Limitations: No Limitations - History of Present Illness Initial comments: The patient was evaluated in the emergency department for symptoms described in the history of present illness. He/she was evaluated in the context of the global COVID-19 pandemic, which necessitated consideration that the patient might be at risk for infection with the virus that causes COVID-19. Institutional protocols and algorithms that pertain to the evaluation of patients at risk for COVID-19 are in a state of rapid change based on information released by regulatory bodies including the CDC and federal and state organizations. These policies and algorithms were followed during the patient's care in the emergency department. Please note that these policies, procedures and recommendations changed on a rapid basis. Mr. Barlow is a 34-year-old gentleman whom I evaluated in the past, with a history of psychiatric disease. He contacted emergency medical services, "because I want to go to a psych hospital." He reports that he feels homicidal or suicidal. He does not have a discrete plan to kill himself. He does not have discrete plan to harm other people. He denies hallucinations. He denies access to guns and firearms. He denies wanting to overdose. He denies headache, neck pain, chest pain, abdominal pain, shortness of breath and urinary symptoms. He reports that he has a chronically thickened skin on his left gluteal cheek. He denies trauma, and dyschezia. He denies COVID symptomatology. He states he is compliant with his medications. He is not accompanied by friends or family at this time for additional information or collateral information. He does not describe aggravating, relieving factors, exacerbating factors, or radiation factors. -: Gradual Radiation: other Quality: other Consistency: other Improves with: other Worsens with: other - Related Data Home Medications Medication Instructions Recorded Confirmed Last Taken Paliperidone Palmitate [Invega 234 mg IM QMONTH 12/20/18 11/29/19 12/07/18 Sustenna(Nf)] Previous Rx's Medication Instructions Recorded Last Taken Type Benztropine [Cogentin] 1 mg PO QHS #30 tablet 06/27/16 12/19/[address] [Porsha Mclean] 500 mg PO BID #60 tablet 06/27/16 12/19/18 Rx haloperidoL [Haldol] 5 mg PO HS #30 tablet 06/27/16 12/19/18 Rx Allergies Allergy/AdvReac Type Severity Reaction Status Date / Time quetiapine fumarate Allergy Unknown Verified 11/29/19 08:14 [From Seroquel] ED Review of Systems ROS: Stated complaint: MH EVAL/SUICIDAL Other details as noted in HPI Constitutional: denies: fever, malaise Eyes: denies: eye discharge, vision change Respiratory: denies: see HPI Cardiovascular: denies: chest pain Gastrointestinal: denies: abdominal pain Genitourinary: denies: dysuria Musculoskeletal: denies: myalgia Skin: as per HPI Neurological: denies: weakness Psychiatric: as per HPI, homicidal thoughts, suicidal thoughts ED Past Medical Hx - Past Medical History Previous Medical History?: Yes Hx Hypertension: Yes Hx Seizures: Yes Hx Psychiatric Treatment: Yes (anxiety, schizophrenia, bipolar) Hx Asthma: Yes - Surgical History Past Surgical History?: No - Social History Smoking Status: Current Every Day Smoker Substance Use Type: Alcohol - Medications Home Medications: Home Medications Medication Instructions Recorded Confirmed Last Taken Type Benztropine [Cogentin] 1 mg PO QHS #30 tablet 06/27/16 11/29/19 12/19/[address] [Porsha Mclean] 500 mg PO BID #60 tablet 06/27/16 11/29/19 12/19/18 Rx haloperidoL [Haldol] 5 mg PO HS #30 tablet 06/27/16 11/29/19 12/19/18 Rx Paliperidone Palmitate [Invega 234 mg IM QMONTH 12/20/18 11/29/19 12/07/18 His tory Sustenna(Nf)] ED Physical Exam - General Limitations: No Limitations General appearance: alert, in no apparent distress - Head Head exam: Present: atraumatic, normocephalic - Eye Eye exam: Present: normal appearance, EOMI. Absent: nystagmus - ENT ENT exam: Present: normal exam, normal orophraynx, mucous membranes moist, normal external ear exam - Neck Neck exam: Present: normal inspection, full ROM. Absent: tenderness, meningismus - Respiratory Respiratory exam: Present: normal lung sounds bilaterally. Absent: respiratory distress, wheezes, rales, rhonchi, stridor, decreased breath sounds - Cardiovascular Cardiovascular Exam: Present: regular rate, normal rhythm, normal heart sounds. Absent: bradycardia, tachycardia, irregular rhythm, systolic murmur, diastolic murmur, rubs, gallop - GI/Abdominal GI/Abdominal exam: Present: soft. Absent: distended, tenderness, guarding, rebound, rigid, pulsatile mass - Rectal Rectal exam: Present: normal inspection (Chaperoned by Silvia Lanza) - Extremities Exam Extremities exam: Present: normal inspection, full ROM, other (2+ pulses noted in the bilateral upper and lower extremities. There is no palpable cord. negative Homans sign. Muscular compartments are soft. The pelvis is stable.). Absent: pedal edema, calf tenderness - Back Exam Back exam: Present: normal inspection, full ROM. Absent: tenderness, CVA tenderness (R), CVA tenderness (L), paraspinal tenderness, vertebral tenderness - Neurological Exam Neurological exam: Present: alert, oriented X3, normal gait, other (No facial droop. Tongue midline. Extraocular movements intact bilaterally. Facial sensation intact to light touch in V1, V2, V3 distribution bilaterally. 5 and a 5 strength in 4 extremities. Sensation intact to light touch in 4 extremities.). Absent: motor sensory deficit - Psychiatric Psychiatric exam: Present: flat affect. Absent: agitated, anxious - Skin Skin exam: Present: warm, dry, intact, normal color. Absent: rash ED Course Vital Signs 11/28/19 11/29/19 11/29/19 23:53 00:42 08:53 Temperature 97.3 F L 97.5 F L Pulse Rate 80 80 Respiratory 18 16 14 Rate Blood Pressure 102/59 Blood Pressure 110/70 [Right] O2 Sat by Pulse 99 97 Oximetry 11/29/19 11/30/19 11/30/19 18:01 03:12 07:45 Temperature 97.6 F 98.0 F Pulse Rate 81 77 Respiratory 18 18 16 Rate Blood Pressure Blood Pressure 109/64 95/56 [Right] O2 Sat by Pulse 95 96 Oximetry 11/30/19 07:46 Temperature 97.8 F Pulse Rate 69 Respiratory 20 Rate Blood Pressure Blood Pressure 98/63 [Right] O2 Sat by Pulse 96 Oximetry - Reevaluation(s) Reevaluation #1: 11/29/19 00:39 Differential diagnosis, including but not limited to: Psychosis, medical clearance for psychiatric placement Assessment and plan: 34-year-old gentleman, here with psychiatric complaint. Physical exam benign and unremarkable. Patient presents with a flat affect and endorses that he is both homicidal and s uicidal. Patient placed on hold status, psychiatric consultation is requested, appropriate laboratory studies ordered. I discussed this plan of care with the patient, who verbalized understanding, a nd who is amenable to this plan of care. Reevaluation #2: 11/29/19 01:13 Vital signs, laboratory studies fairly unremarkable. Urinalysis pending. Patient walking, and in no acute distress. At this point time, patient does not appear to have an immediate medical contraindication to psychiatric evaluation, consultation, and placement, if they deem it necessary. Reevaluation #3: 11/29/19 01:50 care will be transferred to Dr Toma Zuluaga to follow up on ED Medical Decision Making - Lab Data Result diagrams: 11/29/19 00:15 11/29/19 00:15 Vital Signs 11/29/19 00:42 Temperature 97.3 F L Pulse Rate 80 Respiratory 16 Rate Blood Pressure 110/70 [Right] O2 Sat by Pulse 99 Oximetry Lab Results 11/29/19 11/29/19 11/29/19 Range/Units 00:15 00:15 00:15 WBC 7.0 (4.5-11.0) K/mm3 RBC 4.52 (3.65-5.03) M/mm3 Hgb 14.8 (11.8-15.2) gm/dl Hct 43.8 (35.5-45.6) % MCV 97 H (84-94) fl MCH 33 H (28-32) pg MCHC 34 (32-34) % RDW 14.8 (13.2-15.2) % Plt Count 231 (140-440) K/mm3 Sodium 136 L (137-145) mmol/L Potassium 4.2 (3.6-5.0) mmol/L Chloride 98.7 (98-107) mmol/L Carbon Dioxide 22 (22-30) mmol/L Anion Gap 20 mmol/L BUN 22 H (9-20) mg/dL Creatinine 0.8 (0.8-1.3) mg/dL Estimated GFR > 60 ml/min BUN/Creatinine Ratio 28 % Glucose 145 H (75-100) mg/dL Calcium 9.2 (8.4-10.2) mg/dL Magnesium 2.10 (1.7-2.3) mg/dL Total Creatine Kinase 222 H (55-170) units/L Salicylates (2.8-20.0) mg/dL Acetaminophen (10.0-30.0) ug/mL Valproic Acid (50-100) ug/mL Plasma/Serum Alcohol (0-0.07) % 11/29/19 11/29/19 11/29/19 Range/Units 00:15 00:15 00:15 WBC (4.5-11.0) K/mm3 RBC (3.65-5.03) M/mm3 Hgb (11.8-15.2) gm/dl Hct (35.5-45.6) % MCV (84-94) fl MCH (28-32) pg MCHC (32-34) % RDW (13.2-15.2) % Plt Count (140-440) K/mm3 Sodium (137-145) mmol/L Potassium (3.6-5.0) mmol/L Chloride (98-107) mmol/L Carbon Dioxide (22-30) mmol/L Anion Gap mmol/L BUN (9-20) mg/dL Creatinine (0.8-1.3) mg/dL Estimated GFR ml/min BUN/Creatinine Ratio % Glucose (75-100) mg/dL Calcium (8.4-10.2) mg/dL Magnesium (1.7-2.3) mg/dL Total Creatine Kinase (55-170) units/L Salicylates < 0.3 L (2.8-20.0) mg/dL Acetaminophen 5.0 L (10.0-30.0) ug/mL Valproic Acid 5.9 L (50-100) ug/mL Plasma/Serum Alcohol < 0.01 (0-0.07) % Critical care attestation.: If time is entered above; I have spent that time in minutes in the direct care of this critically ill patient, excluding procedure time. ED Disposition Clinical Impression: Medical clearance for psychiatric admission Disposition: DC- TO HOME OR SELFCARE Is pt being admited?: No Does the pt Need Aspirin: No Condition: Stable Additional Instructions: In case of an emergency, please contact the following numbers: [place] Crisis and Access Line: Number: Crisis Text Line: (Text START) Number: [phone] Suicide Prevention Line: Number: Emergency Number: 911 SUBSTANCE ABUSE PROGRAMS: [facility]: Location: [place], [place] [facility] Address: [address] [place] [address] [facility] Recovery: Address: [address] [place] [address] [facility] Rehabilitation: Address: [address] [place] [address] [facility] Community: Address: [address] [place] [address] [facility] Address: [address] [place] [address]. Please contact above numbers to attempt placement into free based program. Medicaid Programs: [facility]: Address: [address] [place] [address] [facility]: Address: [address] [place] [address] OUTPATIENT MENTAL HEALTH RESOURCES [facility], [facility] Cyril Robin MD: [address] [place] [address] [place] [address] [facility]: [facility] [address] [place] [address] [place] [address] [phone] [facility] Integrative Psychiatry: [facility]: [address] [facility] [address] [facility] [place] [address] [facility] [address] [facility]: Carlos Brown MD: [address] [place] [address] [address] [place], [place] [address] [place] [facility]: [address] [place] [phone] [place] CRISIS AND ACCESS LINE: Outpatient [facility] Behavioral Health Resources: [facility] ([facility]) [address] [place] [address] / [phone] Thursday thru Thursday - 8am - 5pm [facility] Address: [address] [place] [address] Thursday thru Thursday- 7am-2pm [facility] Address: [address] [place] [address] Thursday thru Thursday: 8:30AM-5PM CRISIS RESOURCES [place] Crisis Line: Suicide Prevention Line: Crisis Text Line: Text START to [phone] Emergency: 911 Referrals: KELLEE CASTELAN MD [Primary Care Provider] - 3-5 Days
[2019-11-29 00:39] LABS: Hematocrit 43.8 % (35.5-45.6); Hemoglobin 14.8 gm/dl (11.8-15.2); Mean Corpuscular HGB Conc 34 % (32-34); Mean Corpuscular Volume 97 fl (84-94); Platelet Count 231 K/mm3 (140-440); Red Blood Count 4.52 M/mm3 (3.65-5.03); Red Cell Distribution Width 14.8 % (13.2-15.2)
[2019-11-29 00:56] LABS: BUN/Creatinine Ratio 28; Blood Urea Nitrogen 22 mg/dL (9-20); Calcium 9.2 mg/dL (8.4-10.2); Hemolysis Index 11
[2019-11-30 07:47] VITALS: BP 98/63
[2019-11-30] MEDS ORDERED: PALIPERIDONE PALMITATE 234 MG/1.5 ML SYRINGE IM SCH (11:00)
--- NOTE | 2019-11-30 11:12 | Consultation ---
History of Present Illness - Reason for Consult Consult date: 11/30/19 Reason for consult: suicidal thoughts - History of Present Psychiatric Illness The patient's medical record was reviewed and the patient's progress was discussed with the nursing staff. The sitter states the patient has been calm and cooperative with no abnormal behaviors. During my interview with the patient this morning he is lying down. He is awake. He is a/o x 3. He is calm and cooperative. He makes good eye contact. The patient states he came in for "having suicidal thoughts." He states "but not now. I don't want to hurt myself or nobody." He says "yesterday I felt a little paranoid, but I feel a lot better today." He then says "I feel like going home."' The patient then states, "I guess I just needed to rest." He denies hallucinations of any kind. The patient states "I feel pretty good" when asked about his mood. He denies any illicit drug use other than "weed." The patient says he drinks "a case of beer every few days." He denies any current withdrawal symptoms but says "sometimes I get shakes." The patient says he has a past history of "schizophrenia and bipolar." He says he takes "depakote, haldol, cogentin, and invega." The patient says he "takes his meds everyday." The patient says he's been admitted "about 100 times" for psych related conditions. He says he's had "one suicide attempt" in the past. PAST PSYCHIATRIC HISTORY: Diagnoses: Schizophrenia Suicide attempts or Self-harm behavior: "100 times" Prior psychiatric hospitalizations: "one" Substance Abuse history: "alcohol and weed" Previous psychiatric medications tried: depakote, haldol, cogentin, invega Outpatient treatment: yes PAST MEDICAL HISTORY: None reported Family Psychiatric History: None reported or documented SOCIAL HISTORY Marital Status: Single Living Arrangements: with a friend Employment Status: Disabled Access to guns/weapons: Denies Education: 10th grade History of Abuse: Denies Legal History: none reported REVIEW OF SYSTEMS Constitutional: Negative for weight loss ENT: Negative for stridor Respiratory: Negative for cough or hemoptysis All other systems reviewed and are negative MENTAL STATUS EXAMINATION General Appearance: Dressed appropriately Behavior: calm and cooperative. good eye contact Mood: "pretty good" Affect and affective range: Congruent with stated mood Thought Process: goal directed Speech: normal rate and volume Thought Content: Suicidal Ideation: Denies Homicidal Ideation: Denies Hallucinations: Denies Delusions: None elicited Insight and Judgment: Limited Memory/Cognition: Limited Attention: Normal ASSESSMENT Schizoaffective Disorder, Bipolar Type Treatment Plan Continue home medications as previously prescribed Sitter: Defer to primary Medical: Per primary Disposition: Do not recommend acute inpatient treatment. He may discharge once medically cleared. The patient understands that if suicidal or homicidal tendencies arise he is to seek immediate assistance, including but not limited to the crisis hotline, 911/and or ER. The supervisor ovens is to further discuss the safety plan. The supervisor ovens is to give the patient resources for cognitive behavioral therapy and alcohol detox programs The patient is to follow up with outpatient psych and primary in 7 to 14 days upon discharge Will sign off. Thank you for this consult. Medications and Allergies Allergies Allergy/AdvReac Type Severity Reaction Status Date / Time quetiapine fumarate Allergy Unknown Verified 11/29/19 08:14 [From Seroquel] Home Medications Medication Instructions Recorded Confirmed Last Taken Type Benztropine [Cogentin] 1 mg PO QHS #30 tablet 06/27/16 11/29/19 12/19/[address] [Porsha Mclean] 500 mg PO BID #60 tablet 06/27/16 11/29/19 12/19/18 Rx haloperidoL [Haldol] 5 mg PO HS #30 tablet 06/27/16 11/29/19 12/19/18 Rx Paliperidone Palmitate [Invega 234 mg IM QMONTH 12/20/18 11/29/19 12/07/18 History Sustenna(Nf)] Active Meds: Active Medications Benztropine Mesylate (Cogentin) 1 mg PO QHS ALDO Divalproex Sodium (Porsha Mclean) 500 mg PO BID ALDO Haloperidol (Haldol) 5 mg PO HS ALDO Haloperidol Lactate (Haldol) 5 mg IM Q6HR PRN PRN Reason: Agitation Lorazepam (Ativan) 2 mg IM Q4HR PRN PRN Reason: Agitation Mental Status Exam - Vital signs Last Vital Signs Temp 97.8 F 11/30/19 07:46 Pulse 69 11/30/19 07:46 Resp 20 11/30/19 07:46 BP 98/63 11/30/19 07:46 Pulse Ox 96 11/30/19 07:46 Results Result Diagrams: 11/29/19 00:15 11/29/19 00:15 All other labs normal.
[2019-11-30] MEDS ORDERED: HALOPERIDOL 5 MG TAB PO SCH (22:00)
[2019-11-30] MEDS ORDERED: DIVALPROEX DR 500 MG TAB PO SCH (22:00)
[2019-11-30] MEDS ORDERED: BENZTROPINE 1 MG TAB PO SCH (22:00)
== END 2019-11-30 13:20 | disposition home or self-care (01) ==
LOC: ED 23:32
DX: R45.851 Suicidal ideations (principal); R45.850 Homicidal ideations; F20.89 Other schizophrenia; F31.9 Bipolar disorder, unspecified; I10 Essential (primary) hypertension; J45.909 Unspecified asthma, uncomplicated; F17.200 Nicotine dependence, unspecified, uncomplicated; Z79.899 Other long term (current) drug therapy
CPT/HCPCS: 36415